=== PATIENT | female | born 1945 | race Caucasian/White ===

== ENCOUNTER 2019-09-25 14:06 | Outpatient (CLI) | payer MEDICARE, OTHER, SELFPAY ==
[2019-09-25 14:40] LABS: Basophils % 0.4 %; Eosinophils # 0.4 10^3/uL (0.0-0.8); Hematocrit 31.4 % (37.0-47.0); Hemoglobin 9.5 g/dL (11.5-15.3); Lymphocytes # 1.4 10^3/uL (0.8-4.8); Lymphocytes % 20.2 %; Mean Corpuscular HGB Conc 30.3 g/dL (30.0-36.0); Mean Corpuscular Hemoglobin 28.8 pg (28.0-34.0); Mean Corpuscular Volume 95.2 fL (81-99); Mean Platelet Volume 11.6 fL (7.4-10.4); Monocytes # 0.6 10^3/uL (0.2-0.9); Monocytes % 8.8 %; Neutrophils # 4.3 10^3/uL (1.8-7.7); Neutrophils % 64.3 %; Nucleated Red Blood Cells % 0 %; Platelet Count 328 10^3/cmm (130-400); Red Cell Distribution Width 14.8 % (12.1-15.1); White Blood Count 6.7 10^3/uL (4.0-10.0)
[2019-09-25 14:57] LABS: Alanine Aminotransferase 17 U/L (0-33); Albumin Level 3.4 g/dL (3.5-5.2); Alkaline Phosphatase 81 IU/L (35-105); Anion Gap 19.9 (5-19); Aspartate Amino Transferase 17 U/L (0-32); Blood Urea Nitrogen 32 mg/dL (8-23); Carbon Dioxide 22 mmol/L (22-29); Chloride 102 mmol/L (98-107); Ferritin 218 ng/mL (15-150); Globulin 3.5 g/dL (1.3-4.6); Glucose 215 mg/dL (65-115); Iron 30 ug/dL (37-145); Lactate Dehydrogenase 178 U/L (135-214); Percent Saturation 13.5 % (20-50); Potassium 4.9 mmol/L (3.5-5.1); Sodium 139 mmol/L (136-145); Total Bilirubin 0.2 mg/dL (0.15-1.2); Total Iron Binding Capacity 222 mcg/dl; Total Protein 6.9 g/dL (6.6-8.7); Unsaturated Iron Binding 192 ug/dL (112-347)
[2019-09-25 15:14] LABS: Estmated Average Glucose 194; Hemoglobin A1C 8.4 % (4.0-6.0)
== END 2019-09-25 14:07 | disposition home or self-care (01) ==
LOC: ONCMED 14:11
PROVIDERS: Family Provider Internal Medicine; PCP Internal Medicine; Visit Provider Internal Medicine Medical Oncology
DX: C64.1 Malignant neoplasm of right kidney, except renal pelvis (principal); D64.9 Anemia, unspecified; E11.9 Type 2 diabetes mellitus without complications
CPT/HCPCS: 80053; 82728; 83036; 83540; 83550; 83615; 85025

== ENCOUNTER 2019-09-26 13:53 | Outpatient (CLI) | payer MEDICARE, OTHER, SELFPAY ==
--- NOTE | 2019-09-27 07:37 | ONC FU_ITS ---
Dr. Ruiz Patient Follow-Up Note Patient: Angelika Sanchez Unit #: [id number]: 1945 Dicatated By: Diogenes Ruiz M.D.Date of Visit:Sep 26, 2019 Onc Med Follow-up/Prog Note Chief Complaint: Anemia/renal cell cancer. History of Present Illness: This is a 74 year-old woman wtih metastatic renal cell cancer. She also has mild to moderately severe anemia. I had initially seen in November 2012 with persistent anemia following an episode of tularemia the preceding fall. She had been in good health until March of 2012 when she came down with a high fever. She said she had never been so sick in her life. The illness was associated with a sore in the area of the left axilla. She ultimately was determined to have and was treated for tularemia. She did show some gradual improvement with treatment, but she never actually got better, and her laboratory studies showed persistent anemia and elevated sed rate. She failed to improve with parenteral iron replacement and with retreatment of the tularemia. Abdominal CT scan in May showed a large right renal mass consistent with renal cell carcinoma. There was suspected invasion of the right renal vein. A small right upper lobe pulmonary nodule was indeterminate. She also was noted to have a 2.3 x 1.6 cm nodule in the left lobe of the thyroid. There was no other obvious metastatic disease. She underwent right nephrectomy on 06/27/13. Pathology showed grade 4 clear cell carcinoma. The tumor measured 12.7 x 11.0 x 9.5 cm. There was gross extension into the renal vein, and the renal vein margin was noted to be positive. All other surgical margins were negative. One hilar lymph node was negative. Pathologic staging was pT3a, pN0. She indicates that prior to the nephrectomy, she did see an lawnmower mechanic, and biopsy of the thyroid nodule reportedly was benign. She did develop a wound infection, but that subsequently resolved. Her postoperative course was unremarkable. A followup CT scan in August 2013 showed no significant change in the right upper lobe pulmonary nodule. A right middle lobe nodule also was reported on that study. It measured only 2 to 3 mm, and it was noted to be unchanged. However, repeat CT scans in November 2013 did show a significant increase in the right upper lobe nodule. The small right middle lobe nodule and another small nodule in the right lower lobe appeared stable or perhaps slightly increased. At that point she was referred to Dr. Coates. On 01/14/2014 she underwent right thoracotomy with wedge resection of all 3 pulmonary nodules. Pathology on the right upper lobe nodule showed a high-grade metastatic renal cell carcinoma measuring 1.4 x 1.3 cm. The right middle lobe nodule was a well differentiated neuroendocrine tumor (carcinoid tumor) measuring 4 x 3 mm. The right lower lobe nodule was a more well differentiated metastatic renal cell carcinoma. During recovery she had some issues with blood pressure control and with lower extremity edema, but she otherwise recovered uneventfully. On a scheduled surveillance CT scan in February 2015, she was found to have a new 7.4 mm irregular nodule at the apex of the left lung. It was felt to be suspicious for a primary tumor or metastatic disease. There were no other suspicious findings at that time. Further evaluation with PET/CT showed low-grade FDG uptake in the nodule with SUV 1.5. It was felt to be consistent with metastatic disease. There were no other areas of abnormal uptake on that study. As the findings were felt to be consistent with a single site of additional metastatic involvement, she was referred to Dr. Osman for SBRT. She completed treatment on 03/31/2015 to a total dose of 4800 cGy, delivered in 4 fractions of 1200 cGy. Follow-up PET/CT on 06/28/2015 showed a residual FDG negative nodule measuring 3 mm consistent with positive response to therapy. There was no evidence of any new metastatic disease on that study. Surveillance chest CT on 12/30/2016 showed postsurgical changes in the right thorax with no evidence of recurrence on the right. There was a new 5 mm nodule noted in the lingula, indeterminate for an early metastatic site. Her follow-up CT scans of the chest, abdomen, and pelvis on 04/12/2017 showed increase in the size of the nodule in the lingula to 6.8 mm compared to 4.4 mm in December. There was stable scarring in the left upper lobe. There were no new pulmonary parenchymal nodules. A 2 cm left thyroid lobe nodule appeared stable. There was no evidence of recurrence or metastatic involvement in the abdomen/pelvis. She was referred to Dr. Osman, and she underwent SBRT to the lesion in the lingula, completed on 05/06/2017 to a total dose of 4800 cGy. She tolerated it well. Her repeat chest CT on 06/30/2017 showed stable 7 mm nodule in the lingula. There was biapical fibrosis, worse the left upper lobe. Restaging CT scans of the chest, abdomen, and pelvis on 11/29/2017 showed further increase in the size of the lingular opacity, measuring 12 mm. The findings were felt to be consistent with metastatic lesion versus postradiation changes. There was stable scar at the left lung apex. There was evidence of hepatic steatosis. There was no evidence of any new metastatic disease. Chest CT on 03/01/2018 showed left apical focal parenchymal nodule measuring 9.1 x 16 mm, felt to be most likely due to scarring and similar to the previous study. Right upper lobe parenchymal scarring also appeared unchanged. There was interval decreased density of the lingula focal opacities, felt to probably represent resolving infectious or inflammatory process. She continued observation/expectant management. Her other medical illnesses include hypertension, GERD, and chronic anxiety/depression. She also has developed stage III chronic kidney disease and type 2 diabetes. INTERIM HISTORY: Restaging CT scans of the chest, abdomen, and pelvis on 09/11/2018 showed subtle overall increase in size and density of the apical posterior segment left upper lobe density. This was felt to be suspicious for recurrence/progression. Other findings were stable. A restaging PET/CT on 12/23/2018 showed a 1.2 x 1.7 cm left upper lobe nodule without significant FDG activity. The appearance was consistent with scarring. Right upper lobe scarring was also FDG negative. There were no areas of abnormal uptake on that study. At that point she had become mildly anemic again. Her B12 level was normal. Her serum iron studies from 03/21/2019 showed low transferrin saturation at 18.3%, suggesting possible iron deficiency. Her repeat chest CT on 06/18/2019 showed stable appearance of the irregular nodular focus in the left upper lobe, measuring 10 x 24 mm. Postoperative changes in the right upper and middle lobes appeared stable, as did the appearance of the lingular subsegmental atelectasis or scarring. A 2.2 cm left thyroid lobe nodule also appeared stable. Overall, there was no evidence of disease progression. As of 06/28/2019 there was further decrease in the hemoglobin to 10.9 g with the transferrin saturation further decreased to 15%. At that point she did start an oral iron supplement. She continued on observation/expectant management for the renal cell cancer. She is seen for a follow-up visit. She continues to complain that she is very tired. She has not had much activity. She has had added anxiety/stress, as her has had ongoing health issues and he required group home placement, at least temporarily. Her ECOG score is 2. She does not have good appetite, but she says she is eating. Her weight is down about 5 pounds. She does not have fever or night sweats. She has shortness of breath with activity, and she also has had some cough. She thinks she may have a cold coming on. She does not complain of chest pain. She has no GI complaints. She has some urgency with urination and bladder incontinence at night. She says her knees are getting bad again. She is due for follow-up with Dr. Anthony in 3 weeks. She has ongoing problems with her balance, and she has numbness/tingling in her feet and lower legs. Medications: AmLODIPine Besylate 1 (5 mg) Tablet Oral daily, Hydrocodone-Acetaminophen 1 Tablet (of 5-325 mg) Oral four times a day, Losartan Potassium 1 Tablet (of 100 mg) Oral daily, RaNITidine HCl 1 (150 mg) Tablet Oral b.i.d., rOPINIRole HCl 1 Tablet (of 0.25 mg) Oral daily PRN, TraZODone HCl 1 (50 mg) Tablet Oral at bedtime PRN, Venlafaxine HCl 1 Tablet (of 150 mg) Oral daily Allergies: Gentamicin Review of Systems: Constitutional - Her energy is low. She is not doing much activity at home. Her appetite is not good. Her weight is down about 5 pounds since her last visit. No fever, chills, hot flashes, or night sweats. ECOG score is 2, ENMT - No sinus congestion/drainage. No mouth sores. No sore throat or difficulty swallowing, Hematologic/Lymphatic - No abnormal bruising or bleeding, Respiratory - Her breathing is shallow most of the time, and she has shortness of breath with activity. She has a cough. No pleuritic pain or hemoptysis, Cardiovascular - No angina pain. No palpitations, Gastrointestinal - No nausea or vomiting. No heartburn or acid reflux. No diarrhea or constipation. No blood in the stool or black stools, Genitourinary (F) - No dysuria or hematuria. No urinary frequency. She has urgency and bladder incontinence at night, Musculoskeletal - The pain in her knees is getting worse again. She is due to go see Dr. Anthony for another injection in 3 weeks. She also has pain in her back, Integumentary - No skin complications, Neurologic - No headache or dizziness. She has trouble with her balance. She has numbness and tingling in her feet. It sometimes gets up around her shins, Psychiatric - Her nerves are not good. She is worried about her . She is not sleeping very well at night. Vital Signs: Performed on Sep 26, 2019 15:35 Height - 62.00 in Temperature - 98.3 F (LOW) Pulse - 65 /min Respiration - 18 /min BP - 169/73 mm(hg) (HIGH) O2 Sat - 95 % (LOW) Pain - 0 Fatigue - 0 Performed on Sep 26, 2019 14:11 Height - 62.00 in Weight - 227.4 lbs (LOW) BSA - 2.02 sq.m BMI - 41.59 (HIGH) Temperature - 97.8 F (LOW) Pulse - 75 /min Respiration - 17 /min BP - 151/76 mm(hg) (HIGH) O2 Sat - 94 % (LOW) Pain - 5 Physical Examination: Constitutional - She appears somewhat weak generally, but not acutely ill, Eyes - Sclerae nonicteric. Conjunctivae clear, ENMT - There are no other lesions noted in the oral cavity, Hematologic/Lymphatic - No cervical, clavicular, or axillary adenopathy, Respiratory - Lungs sound clear with diminished air movement bilaterally, Cardiovascular - Heart rhythm is regular. There is a II/ systolic murmur. There is no gallop or rub noted, Abdomen - Moderately distended. Liver and spleen are not enlarged. There is no abdominal mass or ascites noted and there is no inguinal adenopathy, Extremities - Mild lower extremity edema, Neurologic - She has poor mobility. There are no focal neurologic deficits noted. Lab/Imaging: Test performed on Sep 25, 2019 14:17 Ferritin 218 ng/mL Iron 30 ug/dL LDH (Total) 178 U/L Sodium 139 mmol/L Potassium 4.9 mmol/L Chloride 102 mmol/L CO2 22 mmol/L UIBC 192 ug/dL Anion Gap 19.9 BUN 32 mg/dL Creatinine 2.0 mg/dL Cr Clearance (Est) 41.8700 mL/min Glucose 215 mg/dL Calcium 9.0 mg/dL Protein, Total 6.9 g/dL Albumin 3.4 g/dL Globulin 3.5 g/dL Bilirubin, Total 0.2 mg/dL ALT (SGPT) 17 U/L AST (SGOT) 17 U/L Alkaline Phosphatase 81 IU/L Hemoglobin A1C % 8.4 % WBC 6.7 10 3/uL RBC 3.30 10 6/uL HGB 9.5 g/dL HCT 31.4 % MCV 95.2 fL MCH 28.8 pg MCHC 30.3 g/dL RDW 14.8 % Platelet Count 328 10 3/cmm MPV 11.6 fL Neutrophils 4.3 10 3/uL Lymphocytes 1.4 10 3/uL Monocytes 0.6 10 3/uL Eosinophils 0.4 10 3/uL Basophils 0.0 10 3/uL Neutrophil % 64.3 % Lymphocyte % 20.2 % Monocyte % 8.8 % Eosinophil % 6.0 % Basophils % 0.4 % Impression: 1. Patient with stage IV renal cell cancer. Her disease appeared locally advanced at initial diagnosis. She underwent right open nephrectomy with renal vein thrombectomy on 06/27/2013. Pathology showed grade 4 clear cell carcinoma. The primary tumor measured 12.7 x 11.0 x 9.5 cm. 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 The renal vein margin was reported to be positive. Dr. Sheppard had indicated in his followup note that he felt it was highly unlikely that she had residual gross tumor, though pathology did report a positive renal vein margin. Disease at that point appeared to be stage III (T3a, N0, M0). 2. In January 2014 she underwent wedge resection of 3 pulmonary nodules. Two of these were metastatic renal cell cancer, one high-grade and one well differentiated. The other was a very small carcinoid tumor. Based on that, she had pathologically confirmed stage IV disease. She was without evidence of disease following the surgery. 3. In February a surveillance CT scan showed a new pulmonary nodule near the left apex, consistent with metastasis. PET/CT showed low-grade FDG avidity in the nodule, but no other areas of abnormal uptake, consistent with a single site of metastatic involvement. She was then treated with SBRT which she completed in March 2015 to a total dose of 4800 cGy. There was evidence of positive treatment response on follow-up PET/CT in June 2015. 4. Her surveillance CT scans in March 2017 showed an enlarging pulmonary nodule in the lingula, suspicious for metastasis. She was referred to Dr. Osman. She underwent SBRT to the lingula lesion, completed on 05/06/2017 to a total dose of 4800 cGy. 5. She also is known to have multi nodular goiter. This includes two dominant nodules on the left side, the largest in the left inferior lobe measuring 2.[address] and 2.5 cm by ultrasound. It has appeared stable on the most recent studies, and a previous FNA done prior to the nephrectomy was benign. Her other medical illnesses include: 6. Hypertension. 7. Type II diabetes. 8. Chronic kidney disease. 9. GERD. 10. Anxiety/depression. She has remained on observation/expectant management following completion of the SBRT in April 2017. Her most recent CT scans, from 09/11/2018, showed findings which were felt to be suspicious for recurrence at the site of the tumor nodule in the left lung apex. Those changes, though, were rather subtle, and there was no other evidence of disease progression. On further evaluation with restaging PET/CT in December 2018, the density at the left apex was FDG negative and most likely scarring. There were no areas of abnormal uptake on that study. Overall, during her follow-up she has continued to have somewhat marginal performance status. Within the past year she had become mildly anemic again. Her serum iron studies were consistent with iron deficiency, but her anemia has continued to worsen despite oral iron supplementation. Thus far there has been no evidence of further recurrence/progression of the renal cell cancer. Plan: She remains on observation/expectant management for the renal cell cancer. As her anemia has continued to worsen despite oral iron supplementation, she will be given parenteral iron replacement with a single infusion of Injectafer. She will have repeat laboratory studies in 1 month. If she is not showing any response to the iron replacement, she will need additional evaluation for the anemia. In that regard, it should be noted that anemia was the presenting symptom which led to the discovery of her renal cell cancer. Signed By: Diogenes Ruiz M.D. <<Signature on File>>
== END 2019-09-26 13:54 | disposition home or self-care (01) ==
LOC: ONCMED 13:54
PROVIDERS: Family Provider Internal Medicine; PCP Internal Medicine; Visit Provider Internal Medicine Medical Oncology
DX: D50.9 Iron deficiency anemia, unspecified (principal); Z85.528 Personal history of other malignant neoplasm of kidney; E04.2 Nontoxic multinodular goiter; E11.22 Type 2 diabetes mellitus with diabetic chronic kidney disease; I12.9 Hypertensive chronic kidney disease with stage 1 through stage 4 chronic kidney disease, or unspecified chronic kidney disease; N18.9 Chronic kidney disease, unspecified; K21.9 Gastro-esophageal reflux disease without esophagitis; F41.8 Other specified anxiety disorders; Z90.5 Acquired absence of kidney; Z90.2 Acquired absence of lung [part of]; Z92.3 Personal history of irradiation
CPT/HCPCS: 96365; 99214; J1439

== ENCOUNTER 2019-10-24 14:35 | Outpatient (CLI) | payer MEDICARE, OTHER, SELFPAY ==
[2019-10-24 17:04] LABS: Basophils # 0.1 10^3/uL (0.0-0.1); Basophils % 0.6 %; Eosinophils # 0.4 10^3/uL (0.0-0.8); Eosinophils % 4.9 %; Hematocrit 34.2 % (37.0-47.0); Hemoglobin 10.3 g/dL (11.5-15.3); Lymphocytes # 1.2 10^3/uL (0.8-4.8); Lymphocytes % 13.6 %; Mean Corpuscular HGB Conc 30.1 g/dL (30.0-36.0); Mean Corpuscular Hemoglobin 27.9 pg (28.0-34.0); Mean Corpuscular Volume 92.7 fL (81-99); Mean Platelet Volume 11.9 fL (7.4-10.4); Monocytes # 0.6 10^3/uL (0.2-0.9); Monocytes % 7.2 %; Neutrophils # 6.4 10^3/uL (1.8-7.7); Neutrophils % 73.2 %; Nucleated Red Blood Cells % 0 %; Platelet Count 337 10^3/cmm (130-400); Red Blood Count 3.69 10^6/uL (4.1-5.3); Red Cell Distribution Width 15.5 % (12.1-15.1); White Blood Count 8.7 10^3/uL (4.0-10.0)
[2019-10-24 17:13] LABS: Alanine Aminotransferase 16 U/L (0-33); Albumin Level 3.5 g/dL (3.5-5.2); Alkaline Phosphatase 94 IU/L (35-105); Anion Gap 17.9 (5-19); Aspartate Amino Transferase 16 U/L (0-32); Blood Urea Nitrogen 28 mg/dL (8-23); Calcium 9.6 mg/dL (8.5-10.5); Carbon Dioxide 26 mmol/L (22-29); Chloride 98 mmol/L (98-107); Globulin 3.7 g/dL (1.3-4.6); Glucose 122 mg/dL (65-115); Iron 40 ug/dL (37-145); Lactate Dehydrogenase 186 U/L (135-214); Osmolality Calculated 282 mOsm/kg (285-295); Percent Saturation 18.4 % (20-50); Potassium 4.9 mmol/L (3.5-5.1); Sodium 137 mmol/L (136-145); Total Bilirubin 0.2 mg/dL (0.15-1.2); Total Iron Binding Capacity 217 mcg/dl; Total Protein 7.2 g/dL (6.6-8.7); Unsaturated Iron Binding 177 ug/dL (112-347)
[2019-10-24 18:08] LABS: Erythrocyte Sedimentation Rate 60 mm/hr (0-15)
[2019-10-26 13:12] LABS: Erythropoietin 20.9 mIU/mL (2.6-18.5)
== END 2019-10-24 14:36 | disposition home or self-care (01) ==
LOC: ONCMED 17:12
PROVIDERS: Family Provider Internal Medicine; PCP Internal Medicine; Visit Provider Internal Medicine Medical Oncology
DX: C64.9 Malignant neoplasm of unspecified kidney, except renal pelvis (principal); D64.9 Anemia, unspecified
CPT/HCPCS: 80053; 82668; 83540; 83550; 83615; 85025; 85651

== ENCOUNTER 2019-11-13 09:59 | Outpatient (CLI) | payer MEDICARE, OTHER, SELFPAY ==
[2019-11-13] MEDS: sodium chloride 0.9% 100 ML 75 ML (10:15)
== END 2019-11-13 10:00 | disposition home or self-care (01) ==
LOC: ONCMED 09:59
PROVIDERS: Family Provider Internal Medicine; PCP Internal Medicine; Visit Provider Internal Medicine Medical Oncology
DX: D50.9 Iron deficiency anemia, unspecified (principal); C64.9 Malignant neoplasm of unspecified kidney, except renal pelvis
CPT/HCPCS: 96365; J1439

== ENCOUNTER 2019-12-18 07:30 | Outpatient (CLI) | payer MEDICARE, OTHER, SELFPAY ==
[2019-12-18 15:03] LABS: Basophils # 0.1 10^3/uL (0.0-0.1); Basophils % 0.7 %; Eosinophils # 0.7 10^3/uL (0.0-0.8); Hematocrit 35.6 % (37.0-47.0); Hemoglobin 10.7 g/dL (11.5-15.3); Lymphocytes # 1.4 10^3/uL (0.8-4.8); Lymphocytes % 13.8 %; Mean Corpuscular HGB Conc 30.1 g/dL (30.0-36.0); Mean Corpuscular Hemoglobin 29.2 pg (28.0-34.0); Mean Platelet Volume 11.5 fL (7.4-10.4); Monocytes # 1.1 10^3/uL (0.2-0.9); Neutrophils # 6.5 10^3/uL (1.8-7.7); Neutrophils % 66.9 %; Nucleated Red Blood Cells % 0 %; Platelet Count 385 10^3/cmm (130-400); Red Blood Count 3.67 10^6/uL (4.1-5.3); Red Cell Distribution Width 15.8 % (12.1-15.1); White Blood Count 9.8 10^3/uL (4.0-10.0)
[2019-12-18 15:35] LABS: Erythrocyte Sedimentation Rate 68 mm/hr (0-15)
[2019-12-18 15:55] LABS: Alanine Aminotransferase 15 U/L (0-33); Alkaline Phosphatase 81 IU/L (35-105); Anion Gap 19.2 (5-19); Aspartate Amino Transferase 15 U/L (0-32); Blood Urea Nitrogen 26 mg/dL (8-23); Calcium 9.5 mg/dL (8.5-10.5); Carbon Dioxide 22 mmol/L (22-29); Chloride 101 mmol/L (98-107); Globulin 3.2 g/dL (1.3-4.6); Glucose 168 mg/dL (65-115); Iron 50 ug/dL (37-145); Osmolality Calculated 285 mOsm/kg (285-295); Percent Saturation 22.4 % (20-50); Potassium 5.2 mmol/L (3.5-5.1); Sodium 137 mmol/L (136-145); Total Bilirubin 0.2 mg/dL (0.15-1.2); Total Iron Binding Capacity 223 mcg/dl; Total Protein 7.2 g/dL (6.6-8.7); Unsaturated Iron Binding 173 ug/dL (112-347)
== END 2019-12-18 07:31 | disposition home or self-care (01) ==
LOC: ONCMED 16:30
PROVIDERS: Family Provider Internal Medicine; PCP Internal Medicine; Visit Provider Internal Medicine Medical Oncology
DX: C64.1 Malignant neoplasm of right kidney, except renal pelvis (principal); C78.01 Secondary malignant neoplasm of right lung; C78.02 Secondary malignant neoplasm of left lung; N18.3 Chronic kidney disease, stage 3 (moderate); D64.9 Anemia, unspecified
CPT/HCPCS: 80053; 83540; 83550; 85025; 85651

== ENCOUNTER 2019-12-19 13:25 | Outpatient (CLI) | payer MEDICARE, OTHER, SELFPAY ==
[2019-12-19 15:40] LABS: Estmated Average Glucose 180; Hemoglobin A1C 7.9 % (4.0-6.0)
--- NOTE | 2019-12-22 15:01 | ONC FU_ITS ---
Dr. Ruiz Patient Follow-Up Note Patient: Angelika Sanchez Unit #: [id number]: 1945 Dicatated By: Diogenes Ruiz M.D.Date of Visit:December 19, 2019 Onc Med Follow-up/Prog Note Chief Complaint: Anemia/renal cell cancer. History of Present Illness: This is a 74 year-old woman wtih metastatic renal cell cancer. She also has mild to moderately severe anemia. I had initially seen in November 2012 with persistent anemia following an episode of tularemia the preceding fall. She had been in good health until March of 2012 when she came down with a high fever. She said she had never been so sick in her life. The illness was associated with a sore in the area of the left axilla. She ultimately was determined to have and was treated for tularemia. She did show some gradual improvement with treatment, but she never actually got better, and her laboratory studies showed persistent anemia and elevated sed rate. She failed to improve with parenteral iron replacement and with retreatment of the tularemia. Abdominal CT scan in May showed a large right renal mass consistent with renal cell carcinoma. There was suspected invasion of the right renal vein. A small right upper lobe pulmonary nodule was indeterminate. She also was noted to have a 2.3 x 1.6 cm nodule in the left lobe of the thyroid. There was no other obvious metastatic disease. She underwent right nephrectomy on 06/27/13. Pathology showed grade 4 clear cell carcinoma. The tumor measured 12.7 x 11.0 x 9.5 cm. There was gross extension into the renal vein, and the renal vein margin was noted to be positive. All other surgical margins were negative. One hilar lymph node was negative. Pathologic staging was pT3a, pN0. She indicates that prior to the nephrectomy, she did see an wharf tender, and biopsy of the thyroid nodule reportedly was benign. She did develop a wound infection, but that subsequently resolved. Her postoperative course was unremarkable. A followup CT scan in August 2013 showed no significant change in the right upper lobe pulmonary nodule. A right middle lobe nodule also was reported on that study. It measured only 2 to 3 mm, and it was noted to be unchanged. However, repeat CT scans in November 2013 did show a significant increase in the right upper lobe nodule. The small right middle lobe nodule and another small nodule in the right lower lobe appeared stable or perhaps slightly increased. At that point she was referred to Dr. Coates. On 01/14/2014 she underwent right thoracotomy with wedge resection of all 3 pulmonary nodules. Pathology on the right upper lobe nodule showed a high-grade metastatic renal cell carcinoma measuring 1.4 x 1.3 cm. The right middle lobe nodule was a well differentiated neuroendocrine tumor (carcinoid tumor) measuring 4 x 3 mm. The right lower lobe nodule was a more well differentiated metastatic renal cell carcinoma. During recovery she had some issues with blood pressure control and with lower extremity edema, but she otherwise recovered uneventfully. On a scheduled surveillance CT scan in February 2015, she was found to have a new 7.4 mm irregular nodule at the apex of the left lung. It was felt to be suspicious for a primary tumor or metastatic disease. There were no other suspicious findings at that time. Further evaluation with PET/CT showed low-grade FDG uptake in the nodule with SUV 1.5. It was felt to be consistent with metastatic disease. There were no other areas of abnormal uptake on that study. As the findings were felt to be consistent with a single site of additional metastatic involvement, she was referred to Dr. Osman for SBRT. She completed treatment on 03/31/2015 to a total dose of 4800 cGy, delivered in 4 fractions of 1200 cGy. Follow-up PET/CT on 06/28/2015 showed a residual FDG negative nodule measuring 3 mm consistent with positive response to therapy. There was no evidence of any new metastatic disease on that study. Surveillance chest CT on 12/30/2016 showed postsurgical changes in the right thorax with no evidence of recurrence on the right. There was a new 5 mm nodule noted in the lingula, indeterminate for an early metastatic site. Her follow-up CT scans of the chest, abdomen, and pelvis on 04/12/2017 showed increase in the size of the nodule in the lingula to 6.8 mm compared to 4.4 mm in December. There was stable scarring in the left upper lobe. There were no new pulmonary parenchymal nodules. A 2 cm left thyroid lobe nodule appeared stable. There was no evidence of recurrence or metastatic involvement in the abdomen/pelvis. She was referred to Dr. Osman, and she underwent SBRT to the lesion in the lingula, completed on 05/06/2017 to a total dose of 4800 cGy. She tolerated it well. Her repeat chest CT on 06/30/2017 showed stable 7 mm nodule in the lingula. There was biapical fibrosis, worse the left upper lobe. Restaging CT scans of the chest, abdomen, and pelvis on 11/29/2017 showed further increase in the size of the lingular opacity, measuring 12 mm. The findings were felt to be consistent with metastatic lesion versus postradiation changes. There was stable scar at the left lung apex. There was evidence of hepatic steatosis. There was no evidence of any new metastatic disease. Chest CT on 03/01/2018 showed left apical focal parenchymal nodule measuring 9.1 x 16 mm, felt to be most likely due to scarring and similar to the previous study. Right upper lobe parenchymal scarring also appeared unchanged. There was interval decreased density of the lingula focal opacities, felt to probably represent resolving infectious or inflammatory process. She continued observation/expectant management. Her other medical illnesses include hypertension, GERD, and chronic anxiety/depression. She also has developed stage III chronic kidney disease and type 2 diabetes. INTERIM HISTORY: Restaging CT scans of the chest, abdomen, and pelvis on 09/11/2018 showed subtle overall increase in size and density of the apical posterior segment left upper lobe density. This was felt to be suspicious for recurrence/progression. Other findings were stable. A restaging PET/CT on 12/23/2018 showed a 1.2 x 1.7 cm left upper lobe nodule without significant FDG activity. The appearance was consistent with scarring. Right upper lobe scarring was also FDG negative. There were no areas of abnormal uptake on that study. At that point she had become mildly anemic again. Her B12 level was normal. Her serum iron studies from 03/21/2019 showed low transferrin saturation at 18.3%, suggesting possible iron deficiency. Her repeat chest CT on 06/18/2019 showed stable appearance of the irregular nodular focus in the left upper lobe, measuring 10 x 24 mm. Postoperative changes in the right upper and middle lobes appeared stable, as did the appearance of the lingular subsegmental atelectasis or scarring. A 2.2 cm left thyroid lobe nodule also appeared stable. Overall, there was no evidence of disease progression. As of 06/28/2019 there was further decrease in the hemoglobin to 10.9 g with the transferrin saturation further decreased to 15%. At that point she did start an oral iron supplement. She continued on observation/expectant management for the renal cell cancer. As of September 2019 there was further decrease in the hemoglobin to 9.5 g, and at that point she was given parenteral iron replacement with a single infusion of Injectafer. She received a second infusion on 11/13/2019. She is seen for a follow-up visit. She continues to complain that she feels tired. She has limited activity. ECOG score is 2. Her appetite is been okay. She has not had fever or night sweats. She does complain that she gets hot after she eats. She was sick with a persistent cough in August and September, but that has improved. She now has just occasional cough. She does not complain of shortness of breath or chest pain. She has been having heartburn at night. She has mild constipation. She has ongoing complaints with urinary frequency and urgency. She has pain in her ankles, in her right knee, and in her thumbs. She also has lower back pain. She is off balance when she first gets up and walks. She also has been having some positional vertigo. She has numbness/tingling in her feet. Medications: AmLODIPine Besylate 1 (5 mg) Tablet Oral daily, Hydrocodone-Acetaminophen 1 Tablet (of 5-325 mg) Oral four times a day, Losartan Potassium 1 Tablet (of 100 mg) Oral daily, RaNITidine HCl 1 (150 mg) Tablet Oral b.i.d., rOPINIRole HCl 1 Tablet (of 0.25 mg) Oral daily PRN, TraZODone HCl 1 (50 mg) Tablet Oral at bedtime PRN, Venlafaxine HCl 1 Tablet (of 150 mg) Oral daily Allergies: Gentamicin Review of Systems: Constitutional - She continues to feel tired. Her energy level is low. She is doing very little at home. Her appetite is good and weight is stable. No fever or chills. She has hot flashes. No night sweats. ECOG score is 2, ENMT - No sinus congestion/drainage. No mouth sores. No sore throat or difficulty swallowing, Hematologic/Lymphatic - No abnormal bruising or bleeding, Respiratory - No shortness of breath. She has an occasioanl cough. No pleuritic pain or hemoptysis, Cardiovascular - No angina pain. No palpitations, Gastrointestinal - No nausea or vomiting. She is taking Zantac daily. No diarrhea. She has mild constipation. No blood in the stool or black stools, Genitourinary (F) - No dysuria or hematuria. She has urinary frequency both day and night with urgency. No incontinence, Musculoskeletal - She has arthritis pain in her hands and knees, and she has low back pain, Integumentary - No skin complications, Neurologic - No headache. She has positional vertigo. She has neuropathy in her feet that occasional radiates up into legs, Psychiatric - She has anxiety. No insomnia. Vital Signs: Performed on December 19, 2019 13:33 Height - 62.00 in Weight - 227.8 lbs (HIGH) BSA - 2.02 sq.m BMI - 41.67 (HIGH) Temperature - 98.6 F Pulse - 68 /min Respiration - 24 /min BP - 144/70 mm(hg) (HIGH) O2 Sat - 99 % Pain - 0 Physical Examination: Constitutional - She appears somewhat weak generally, Eyes - Sclerae nonicteric. Conjunctivae clear, ENMT - No lesions noted in the oral cavity, Hematologic/Lymphatic - No cervical, clavicular, or axillary adenopathy, Respiratory - Lungs sound clear with diminished air movement bilaterally, Cardiovascular - Heart rhythm is regular. There is a II/ systolic murmur. There is no gallop or rub noted, Abdomen - Moderately distended. Liver and spleen are not enlarged. There is no abdominal mass or ascites noted and there is no inguinal adenopathy, Extremities - Mild lower extremity edema, worse on the left, Neurologic - She has limited mobility. There are no focal neurologic deficits noted. Lab/Imaging: Test performed on December 18, 2019 07:30 Iron 50 mcg/dL Sodium 137 mmol/L Iron Binding Capacity (TIBC) 223 mcg/dl Potassium 5.2 mmol/L % Iron Saturation 22.4 % Chloride 101 mmol/L CO2 22 mmol/L UIBC 173 mcg/dL Anion Gap 19.2 BUN 26 mg/dL Creatinine 1.9 mg/dL Cr Clearance (Est) 43.02 mL/min Glucose 168 mg/dL Calcium 9.5 mg/dL Protein, Total 7.2 g/dL Albumin 4.0 g/dL Globulin 3.2 g/dL Bilirubin, Total 0.2 mg/dL ALT (SGPT) 15 U/L AST (SGOT) 15 U/L Alkaline Phosphatase 81 IU/L ESR (Sed Rate) 68 mm/hr Hemoglobin A1C % 7.9 % WBC 9.8 10 3/uL RBC 3.67 10 6/uL HGB 10.7 g/dL HCT 35.6 % MCV 97.0 fL MCH 29.2 pg MCHC 30.1 g/dL RDW 15.8 % Platelet Count 385 10 3/cmm MPV 11.5 fL Neutrophils 6.5 10 3/uL Lymphocytes 1.4 10 3/uL Monocytes 1.1 10 3/uL Eosinophils 0.7 10 3/uL Basophils 0.1 10 3/uL Neutrophil % 66.9 % Lymphocyte % 13.8 % Monocyte % 11.0 % Eosinophil % 7.0 % Basophils % 0.7 % Impression: 1. Patient with stage IV renal cell cancer. Her disease appeared locally advanced at initial diagnosis. She underwent right open nephrectomy with renal vein thrombectomy on 06/27/2013. Pathology showed grade 4 clear cell carcinoma. The primary tumor measured 12.7 x 11.0 x 9.5 cm. 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 The renal vein margin was reported to be positive. Dr. Sheppard had indicated in his followup note that he felt it was highly unlikely that she had residual gross tumor, though pathology did report a positive renal vein margin. Disease at that point appeared to be stage III (T3a, N0, M0). 2. In January 2014 she underwent wedge resection of 3 pulmonary nodules. Two of these were metastatic renal cell cancer, one high-grade and one well differentiated. The other was a very small carcinoid tumor. Based on that, she had pathologically confirmed stage IV disease. She was without evidence of disease following the surgery. 3. In February a surveillance CT scan showed a new pulmonary nodule near the left apex, consistent with metastasis. PET/CT showed low-grade FDG avidity in the nodule, but no other areas of abnormal uptake, consistent with a single site of metastatic involvement. She was then treated with SBRT which she completed in March 2015 to a total dose of 4800 cGy. There was evidence of positive treatment response on follow-up PET/CT in June 2015. 4. Her surveillance CT scans in March 2017 showed an enlarging pulmonary nodule in the lingula, suspicious for metastasis. She was referred to Dr. Osman. She underwent SBRT to the lingula lesion, completed on 05/06/2017 to a total dose of 4800 cGy. 5. She also is known to have multi nodular goiter. This includes two dominant nodules on the left side, the largest in the left inferior lobe measuring 2.[address] and 2.5 cm by ultrasound. It has appeared stable on the most recent studies, and a previous FNA done prior to the nephrectomy was benign. Her other medical illnesses include: 6. Hypertension. 7. Type II diabetes. 8. Chronic kidney disease. 9. GERD. 10. Anxiety/depression. She has remained on observation/expectant management following completion of the SBRT in April 2017. Her most recent CT scans, from 09/11/2018, showed findings which were felt to be suspicious for recurrence at the site of the tumor nodule in the left lung apex. Those changes, though, were rather subtle, and there was no other evidence of disease progression. On further evaluation with restaging PET/CT in December 2018, the density at the left apex was FDG negative and most likely scarring. There were no areas of abnormal uptake on that study. Overall, during her follow-up she has continued to have somewhat marginal performance status. Within the past year she had become mildly anemic again. Her serum iron studies were consistent with iron deficiency, but her anemia continued to worsen despite oral iron supplementation. She was then given parenteral iron replacement with infusions of Injectafer in September and in October 2019. There has been some increase in her hemoglobin/hematocrit levels, but she remains mildly anemic. Overall, she continues to have fairly marginal performance status. Thus far there is been no evidence for further progression/recurrence of the renal cell cancer. Plan: She remains on observation/expectant management for the renal cell cancer. She will be scheduled for restaging PET/CT, as it has been 6 months since her last imaging. I will tentatively plan a follow-up visit in 3 months. Signed By: Diogenes Ruiz M.D. <<Signature on File>>
== END 2019-12-19 13:26 | disposition home or self-care (01) ==
LOC: ONCMED 13:25
PROVIDERS: Family Provider Internal Medicine; PCP Internal Medicine; Visit Provider Internal Medicine Medical Oncology
DX: C64.1 Malignant neoplasm of right kidney, except renal pelvis (principal); C7A.090 Malignant carcinoid tumor of the bronchus and lung; C78.02 Secondary malignant neoplasm of left lung; E11.22 Type 2 diabetes mellitus with diabetic chronic kidney disease; I12.9 Hypertensive chronic kidney disease with stage 1 through stage 4 chronic kidney disease, or unspecified chronic kidney disease; N18.3 Chronic kidney disease, stage 3 (moderate); K21.9 Gastro-esophageal reflux disease without esophagitis; F41.8 Other specified anxiety disorders; D50.9 Iron deficiency anemia, unspecified; Z85.528 Personal history of other malignant neoplasm of kidney; Z90.2 Acquired absence of lung [part of]; Z90.5 Acquired absence of kidney
CPT/HCPCS: 83036; 99214

== ENCOUNTER 2020-01-25 11:57 | Outpatient (CLI) | payer MEDICARE, OTHER, SELFPAY ==
--- NOTE | 2020-01-25 12:05 | CT_ITS ---
WS: [id number] CT CHEST, ABDOMEN, AND PELVIS TECHNIQUE: Noncontrast CT of the chest, abdomen, and pelvis with coronal and sagittal reformatted wendy ges. CLINICAL INFORMATION: ANEMIA, RENAL CELL CANCER COMPARISON: CT chest June 18, 2019 and PET/CT December 23, 2018. CT chest abdomen pelvis September 11. DLP: 2408.[address] scans at [facility] use at least one of these dose optimization techniques: automat ed exposure control; mA and/or kV adjustment per patient size (includes targeted exams where dose is matched to clinical indication); or iterative reconstruction. CT CHEST: Prior postoperative changes right upper and right middle lobe. Previously described left upper lobe p ulmonary opacity is unchanged measuring 1.9 x 1.0 CM. Stable subsegmental atelectasis and fibrosis in the right upper lobe along the fissure and right hilum. Stable postoperative changes right upper lob e and right middle lobe. No new pulmonary opacities. Stable fibrosis in the lingula. Noncalcified nod ule in the right lower lobe laterally measuring 6 mm is slightly more prominent today. Recommend 6 mo nth follow-up. This was present dating back to 2016. No mediastinal or hilar lymphadenopathy. Stable lower pole left thyroid nodule measuring 2.3 cm. No acute pulmonary infiltrates. Mild chronic emphysematous changes. Tiny noncalcified subpleural nodule in the left upper lobe measuring 3 mm. Thi s is unchanged. Subsegmental Atelectasis in the right lower lobe. CT ABDOMEN AND PELVIS: No evidence of progressive metastatic disease in the abdomen or pelvis. Diffus e fatty infiltration of the liver. Normal noncontrast gallbladder and spleen. Normal GE junction. Nor mal noncontrast pancreas. Adrenal glands are normal. Prior right nephrectomy. Stable postoperative ch anges right nephrectomy bed. No abdominal lymphadenopathy. Normal caliber abdominal aorta. Sigmoid diverticulosis. No evidence of small or large bowel obstruction. No adenopathy in the pelvis. No inguinal lymphadenopathy. Sigmoid diverticulosis. No evidence of acute diverticulitis. L5 spondylolysis with grade [address]/CT chest abd pel wo con IMPRESSION: 1. No evidence of progressed metastatic disease in the chest abdomen or pelvis . 2. Left upper lobe pulmonary opacity is unchanged. 3. Stable postoperative changes right upper lobe and right middle lobe. 4. Nodular opacity in the right lower lobe along the diaphragm measuring 6 mm slightly more prominent compared to the prior examinations. Recommend 6 month f ollow-up. 5. Stable parenchymal scarring in the lingula. 6. No adenopathy in the chest, abdomen or pelvis. 7. Prior postoperative changes right nephrectomy. 8. Diffuse fatty infiltration of the liver. 9. Diverticulosis. 10. Grade 2 anterolisthesis with chronic spondylolysis.
== END 2020-01-25 11:58 | disposition home or self-care (01) ==
LOC: RADWPI 12:01
PROVIDERS: Family Provider Internal Medicine; PCP Internal Medicine; Visit Provider Internal Medicine Medical Oncology
DX: D64.9 Anemia, unspecified (principal); C64.9 Malignant neoplasm of unspecified kidney, except renal pelvis; K76.0 Fatty (change of) liver, not elsewhere classified; K57.90 Diverticulosis of intestine, part unspecified, without perforation or abscess without bleeding; M47.819 Spondylosis without myelopathy or radiculopathy, site unspecified
CPT/HCPCS: 71250; 74176

== ENCOUNTER 2020-03-20 12:56 | Outpatient (CLI) | payer MEDICARE, OTHER, SELFPAY ==
[2020-03-20 13:40] LABS: Basophils # 0.1 10^3/uL (0.0-0.1); Basophils % 0.6 %; Eosinophils # 0.6 10^3/uL (0.0-0.8); Eosinophils % 5.9 %; Hematocrit 33.2 % (37.0-47.0); Hemoglobin 9.5 g/dL (11.5-15.3); Lymphocytes # 1.2 10^3/uL (0.8-4.8); Mean Corpuscular HGB Conc 28.6 g/dL (30.0-36.0); Mean Corpuscular Hemoglobin 28.1 pg (28.0-34.0); Mean Corpuscular Volume 98.2 fL (81-99); Mean Platelet Volume 11.7 fL (7.4-10.4); Monocytes # 0.7 10^3/uL (0.2-0.9); Monocytes % 6.6 %; Neutrophils # 7.51 10^3/uL (1.8-7.7); Neutrophils % 74.3 %; Nucleated Red Blood Cells % 0 %; Platelet Count 297 10^3/cmm (130-400); Red Blood Count 3.38 10^6/uL (4.1-5.3); Red Cell Distribution Width 14.1 % (12.1-15.1); White Blood Count 10.1 10^3/uL (4.0-10.0)
[2020-03-20 14:12] LABS: Slide Review Slide Review Perform
[2020-03-20 14:35] LABS: Alanine Aminotransferase 14 U/L (0-33); Albumin Level 3.9 g/dL (3.5-5.2); Alkaline Phosphatase 86 IU/L (35-105); Anion Gap 14.7 (5-19); Aspartate Amino Transferase 15 U/L (0-32); Blood Urea Nitrogen 26 mg/dL (8-23); Calcium 9.1 mg/dL (8.5-10.5); Carbon Dioxide 24 mmol/L (22-29); Chloride 100 mmol/L (98-107); Free T4 Free Thyroxine 0.99 ng/dL (0.82-1.77); Globulin 2.9 g/dL (1.3-4.6); Glucose 213 mg/dL (65-115); Lactate Dehydrogenase 154 U/L (135-214); Osmolality Calculated 281 mOsm/kg (285-295); Potassium 4.7 mmol/L (3.5-5.1); Sodium 134 mmol/L (136-145); Thyroid Stimulating Hormone 0.88 uIU/mL (0.27-4.20); Total Bilirubin 0.2 mg/dL (0.15-1.2); Total Protein 6.8 g/dL (6.6-8.7)
== END 2020-03-20 12:57 | disposition home or self-care (01) ==
LOC: ONCMED 12:59
PROVIDERS: PCP Internal Medicine; Visit Provider Internal Medicine Medical Oncology
DX: C64.1 Malignant neoplasm of right kidney, except renal pelvis (principal); C7A.090 Malignant carcinoid tumor of the bronchus and lung; C78.01 Secondary malignant neoplasm of right lung; C78.02 Secondary malignant neoplasm of left lung; N18.3 Chronic kidney disease, stage 3 (moderate); E03.9 Hypothyroidism, unspecified; D64.9 Anemia, unspecified; F41.9 Anxiety disorder, unspecified; F32.9 Major depressive disorder, single episode, unspecified; K21.9 Gastro-esophageal reflux disease without esophagitis; I10 Essential (primary) hypertension
CPT/HCPCS: 36415; 80053; 83615; 84439; 84443; 85025

== ENCOUNTER 2020-03-24 13:59 | Outpatient (CLI) | payer MEDICARE, OTHER, SELFPAY ==
--- NOTE | 2020-03-28 15:47 | ONC FU_ITS ---
Dr. Ruiz Patient Follow-Up Note Patient: Angelika Sanchez Unit #: [id number]: 1945 Dicatated By: Diogenes Ruiz M.D.Date of Visit:Mar 24, 2020 Onc Med Follow-up/Prog Note Chief Complaint: Anemia/renal cell cancer. History of Present Illness: This is a 75 year-old woman wtih metastatic renal cell cancer. She also has mild to moderately severe anemia. I had initially seen in November 2012 with persistent anemia following an episode of tularemia the preceding fall. She had been in good health until March of 2012 when she came down with a high fever. She said she had never been so sick in her life. The illness was associated with a sore in the area of the left axilla. She ultimately was determined to have and was treated for tularemia. She did show some gradual improvement with treatment, but she never actually got better, and her laboratory studies showed persistent anemia and elevated sed rate. She failed to improve with parenteral iron replacement and with retreatment of the tularemia. Abdominal CT scan in May 2013 showed a large right renal mass consistent with renal cell carcinoma. There was suspected invasion of the right renal vein. A small right upper lobe pulmonary nodule was indeterminate. She also was noted to have a 2.3 x 1.6 cm nodule in the left lobe of the thyroid. There was no other obvious metastatic disease. She underwent right nephrectomy on 06/27/13. Pathology showed grade 4 clear cell carcinoma. The tumor measured 12.7 x 11.0 x 9.5 cm. There was gross extension into the renal vein, and the renal vein margin was noted to be positive. All other surgical margins were negative. One hilar lymph node was negative. Pathologic staging was pT3a, pN0. She indicates that prior to the nephrectomy, she did see an loaf counter, and biopsy of the thyroid nodule reportedly was benign. She did develop a wound infection, but that subsequently resolved. Her postoperative course was unremarkable. A followup CT scan in August 2013 showed no significant change in the right upper lobe pulmonary nodule. A right middle lobe nodule also was reported on that study. It measured only 2 to 3 mm, and it was noted to be unchanged. However, repeat CT scans in November 2013 did show a significant increase in the right upper lobe nodule. The small right middle lobe nodule and another small nodule in the right lower lobe appeared stable or perhaps slightly increased. At that point she was referred to Dr. Coates. On 01/14/2014 she underwent right thoracotomy with wedge resection of all 3 pulmonary nodules. Pathology on the right upper lobe nodule showed a high-grade metastatic renal cell carcinoma measuring 1.4 x 1.3 cm. The right middle lobe nodule was a well differentiated neuroendocrine tumor (carcinoid tumor) measuring 4 x 3 mm. The right lower lobe nodule was a more well differentiated metastatic renal cell carcinoma. During recovery she had some issues with blood pressure control and with lower extremity edema, but she otherwise recovered uneventfully. On a scheduled surveillance CT scan in February 2015, she was found to have a new 7.4 mm irregular nodule at the apex of the left lung. It was felt to be suspicious for a primary tumor or metastatic disease. There were no other suspicious findings at that time. Further evaluation with PET/CT showed low-grade FDG uptake in the nodule with SUV 1.5. It was felt to be consistent with metastatic disease. There were no other areas of abnormal uptake on that study. As the findings were felt to be consistent with a single site of additional metastatic involvement, she was referred to Dr. Osman for SBRT. She completed treatment on 03/31/2015 to a total dose of 4800 cGy, delivered in 4 fractions of 1200 cGy. Follow-up PET/CT on 06/28/2015 showed a residual FDG negative nodule measuring 3 mm consistent with positive response to therapy. There was no evidence of any new metastatic disease on that study. Surveillance chest CT on 12/30/2016 showed postsurgical changes in the right thorax with no evidence of recurrence on the right. There was a new 5 mm nodule noted in the lingula, indeterminate for an early metastatic site. Her follow-up CT scans of the chest, abdomen, and pelvis on 04/12/2017 showed increase in the size of the nodule in the lingula to 6.8 mm compared to 4.4 mm in December. There was stable scarring in the left upper lobe. There were no new pulmonary parenchymal nodules. A 2 cm left thyroid lobe nodule appeared stable. There was no evidence of recurrence or metastatic involvement in the abdomen/pelvis. She was referred to Dr. Osman, and she underwent SBRT to the lesion in the lingula, completed on 05/06/2017 to a total dose of 4800 cGy. She tolerated it well. Her repeat chest CT on 06/30/2017 showed stable 7 mm nodule in the lingula. There was biapical fibrosis, worse the left upper lobe. Restaging CT scans of the chest, abdomen, and pelvis on 11/29/2017 showed further increase in the size of the lingular opacity, measuring 12 mm. The findings were felt to be consistent with metastatic lesion versus postradiation changes. There was stable scar at the left lung apex. There was evidence of hepatic steatosis. There was no evidence of any new metastatic disease. Chest CT on 03/01/2018 showed left apical focal parenchymal nodule measuring 9.1 x 16 mm, felt to be most likely due to scarring and similar to the previous study. Right upper lobe parenchymal scarring also appeared unchanged. There was interval decreased density of the lingula focal opacities, felt to probably represent resolving infectious or inflammatory process. She then continued on observation/expectant management for the renal cell cancer. As of August [address] scans had shown no evidence of disease progression. Her other medical illnesses include hypertension, stage III chronic kidney disease, type 2 diabetes, GERD, and chronic anxiety/depression. She has a history of smoking 2 packs of cigarettes daily for 29 years. She quit smoking in the early . INTERIM HISTORY: A restaging PET/CT on 12/23/2018 showed a 1.2 x 1.7 cm left upper lobe nodule without significant FDG activity. The appearance was consistent with scarring. Right upper lobe scarring was also FDG negative. There were no areas of abnormal uptake on that study. At that point she had become mildly anemic again. Her B12 level was normal. Her serum iron studies from 03/21/2019 showed low transferrin saturation at 18.3%, suggesting possible iron deficiency. Her repeat chest CT on 06/18/2019 showed stable appearance of the irregular nodular focus in the left upper lobe, measuring 10 x 24 mm. Postoperative changes in the right upper and middle lobes appeared stable, as did the appearance of the lingular subsegmental atelectasis or scarring. A 2.2 cm left thyroid lobe nodule also appeared stable. Overall, there was no evidence of disease progression. As of 06/28/2019 there was further decrease in the hemoglobin to 10.9 g with the transferrin saturation further decreased to 15%. At that point she did start an oral iron supplement. She continued on observation/expectant management for the renal cell cancer. As of September 2019 there was further decrease in the hemoglobin to 9.5 g, and at that point she was given parenteral iron replacement with a single infusion of Injectafer. She received a second infusion on 11/13/2019. She is seen for a follow-up visit. She complains that she has less energy. Her activity remains very limited. ECOG score is 2. Her appetite is been okay. Her weight is down 6 pounds. She does not have fever or night sweats. She is short of breath with any activity. She has been having more cough. She does not complain of chest pain. She has been having pain from the area just under her right breast down to her waist. She does not have associated nausea she is not having any obvious acid reflux symptoms. Her pain does seem to be better after eating. She does have some constipation, but with stool softeners her bowels move about every 2 to 3 days. She complains that her bladder is leaky. She has back pain, which tends to be associated with activity. She has pain in her right knee. Her sciatic pain has not been bothering her as much. She does not complain of headache. She tends to have dizziness 30 to 40 seconds after lying down. She has numbness from her knees down to the bottoms of her feet, but mainly when she is upright. Medications: AmLODIPine Besylate 1 (5 mg) Tablet Oral daily, Famotidine 1 Tablet (of 40 mg) Oral at bedtime, Hydrocodone-Acetaminophen 1 Tablet (of 5-325 mg) Oral four times a day, Losartan Potassium 1 Tablet (of 100 mg) Oral daily, rOPINIRole HCl 1 Tablet (of 0.25 mg) Oral daily PRN, TraZODone HCl 1 (100 mg) Tablet Oral at bedtime PRN, Venlafaxine HCl 1 Tablet (of 150 mg) Oral daily Allergies: Gentamicin Review of Systems: Constitutional - She says she has less energy. Activity is limited. Her appetite has been okay. Her weight is down 6 pounds. She does not have fever, night sweats, or hot flashes. ECOG score is 2, ENMT - No sinus congestion/drainage. No mouth sores. No sore throat or difficulty swallowing, Hematologic/Lymphatic - No abnormal bruising or bleeding, Respiratory - She has shortness of breath with activity. She has been coughing more. No pleuritic pain or hemoptysis, Cardiovascular - No angina pain. No palpitations, Gastrointestinal - No nausea or vomiting. No heartburn or acid reflux. She has been having pain on a daily basis from the area under her right breast down to her waist. Does tend to get better after she eats. She has constipation, but with a stool softener her bowels move every 2 to 3 days. No blood in the stool or black stools, Genitourinary (F) - No dysuria or hematuria. She has urinary frequency and some incontinence, Musculoskeletal - She has pain in her back which tends to be associated with activity. She has pain in her right knee. She has not been having as much pain in the sciatic area as she used to, Integumentary - No skin rash, Neurologic - No headache. She has dizziness which starts about 30 to 40 seconds after she lies down. She has numbness/tingling from her knees down to the bottoms of her feet, but mainly just when she is upright, Psychiatric - She has anxiety/depression. No insomnia. Vital Signs: Performed on Mar 24, 2020 14:20 Height - 62.00 in Weight - 221.8 lbs (LOW) BSA - 2.00 sq.m BMI - 40.57 (HIGH) Temperature - 97.6 F (LOW) Pulse - 66 /min Respiration - 24 /min BP - 187/65 mm(hg) (HIGH) O2 Sat - 97 % Pain - 3 Physical Examination: Constitutional - She appears somewhat weak generally, Eyes - Sclerae nonicteric. Conjunctivae clear, ENMT - No lesions noted in the oral cavity, Hematologic/Lymphatic - No cervical, clavicular, or axillary adenopathy, Respiratory - Lungs sound clear with diminished air movement bilaterally, Cardiovascular - Heart rhythm is regular. There is a II/ systolic murmur. There is no gallop or rub noted, Abdomen - Moderately distended. There is no abdominal tenderness noted. Liver and spleen are not enlarged. There is no abdominal mass or ascites noted and there is no inguinal adenopathy, Extremities - No edema. Pedal pulses are palpable bilaterally, Neurologic - She has limited mobility. There are no focal neurologic deficits noted. Lab/Imaging: Test performed on Mar 20, 2020 13:12 LDH (Total) 154 U/L Sodium 134 mmol/L T4, Free 0.99 ng/dL TSH 0.88 uIU/mL Potassium 4.7 mmol/L Chloride 100 mmol/L CO2 24 mmol/L Anion Gap 14.7 BUN 26 mg/dL Creatinine 2.2 mg/dL Cr Clearance (Est) 36.6000 mL/min Glucose 213 mg/dL Calcium 9.1 mg/dL Protein, Total 6.8 g/dL Albumin 3.9 g/dL Globulin 2.9 g/dL Bilirubin, Total 0.2 mg/dL ALT (SGPT) 14 U/L AST (SGOT) 15 U/L Alkaline Phosphatase 86 IU/L WBC 10.1 10 3/uL RBC 3.38 10 6/uL HGB 9.5 g/dL HCT 33.2 % MCV 98.2 fL MCH 28.1 pg MCHC 28.6 g/dL RDW 14.1 % Platelet Count 297 10 3/cmm MPV 11.7 fL Neutrophils 7.51 10 3/uL Lymphocytes 1.2 10 3/uL Monocytes 0.7 10 3/uL Eosinophils 0.6 10 3/uL Basophils 0.1 10 3/uL Neutrophil % 74.3 % Lymphocyte % 12.0 % Monocyte % 6.6 % Eosinophil % 5.9 % Basophils % 0.6 % NRBC % 0 % CBC Slide Review Slide Review Perform Impression: 1. Patient with stage IV renal cell cancer. Her disease appeared locally advanced at initial diagnosis. She underwent right open nephrectomy with renal vein thrombectomy on 06/27/2013. Pathology showed grade 4 clear cell carcinoma. The primary tumor measured 12.7 x 11.0 x 9.5 cm. 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 The renal vein margin was reported to be positive. Dr. Sheppard had indicated in his followup note that he felt it was highly unlikely that she had residual gross tumor, though pathology did report a positive renal vein margin. Disease at that point appeared to be stage III (T3a, N0, M0). 2. In January 2014 she underwent wedge resection of 3 pulmonary nodules. Two of these were metastatic renal cell cancer, one high-grade and one well differentiated. The other was a very small carcinoid tumor. Based on that, she had pathologically confirmed stage IV disease. She was without evidence of disease following the surgery. 3. In February a surveillance CT scan showed a new pulmonary nodule near the left apex, consistent with metastasis. PET/CT showed low-grade FDG avidity in the nodule, but no other areas of abnormal uptake, consistent with a single site of metastatic involvement. She was then treated with SBRT which she completed in March 2015 to a total dose of 4800 cGy. There was evidence of positive treatment response on follow-up PET/CT in June 2015. 4. Her surveillance CT scans in March 2017 showed an enlarging pulmonary nodule in the lingula, suspicious for metastasis. She was referred to Dr. Osman. She underwent SBRT to the lingula lesion, completed on 05/06/2017 to a total dose of 4800 cGy. 5. She also is known to have multi nodular goiter. This includes two dominant nodules on the left side, the largest in the left inferior lobe measuring 2.[address] and 2.5 cm by ultrasound. It has appeared stable on the most recent studies, and a previous FNA done prior to the nephrectomy was benign. Her other medical illnesses include: 6. Hypertension. 7. Type II diabetes. 8. Chronic kidney disease. 9. GERD. 10. Anxiety/depression. She has remained on observation/expectant management following completion of the SBRT in April 2017. Her most recent CT scans, from 09/11/2018, showed findings which were felt to be suspicious for recurrence at the site of the tumor nodule in the left lung apex. Those changes, though, were rather subtle, and there was no other evidence of disease progression. On further evaluation with restaging PET/CT in December 2018, the density at the left apex was FDG negative and most likely scarring. There were no areas of abnormal uptake on that study. Within the past year she had become mildly anemic again. Her serum iron studies were consistent with iron deficiency, but her anemia continued to worsen despite oral iron supplementation. She was then given parenteral iron replacement with infusions of Injectafer in September and in October 2019. During follow-up she has remained moderately anemic. She does appear to be showing some gradual decline in performance status. Thus far there is been no documented progression of the renal cell cancer, but I am concerned about the anemia, as it was the presenting feature of her renal cell cancer. I also am concerned that she is not controlling her diabetes very well. Plan: She remains on observation/expectant management for the renal cell cancer. She will be given a prescription for Protonix for her GI symptoms. She will be scheduled for restaging CT scans in 1 month. In the meantime, I also will refer her to Dr. Pollock for management of her diabetes. Signed By: Diogenes Ruiz M.D. <<Signature on File>>
== END 2020-03-24 14:00 | disposition home or self-care (01) ==
LOC: ONCMED 14:05
PROVIDERS: PCP Internal Medicine; Visit Provider Internal Medicine Medical Oncology
DX: Z08 Encounter for follow-up examination after completed treatment for malignant neoplasm (principal); Z85.528 Personal history of other malignant neoplasm of kidney; E11.42 Type 2 diabetes mellitus with diabetic polyneuropathy; I12.0 Hypertensive chronic kidney disease with stage 5 chronic kidney disease or end stage renal disease; N18.9 Chronic kidney disease, unspecified; K21.9 Gastro-esophageal reflux disease without esophagitis; F41.9 Anxiety disorder, unspecified; F32.9 Major depressive disorder, single episode, unspecified
CPT/HCPCS: 99214

== ENCOUNTER → 2020-03-31 13:07 | Outpatient (BNVA) | payer MEDICARE, OTHER, SELFPAY | PROVIDERS: PCP Internal Medicine; Referring Provider Internal Medicine Medical Oncology; Visit Provider Internal Medicine | DX: E11.42 Type 2 diabetes mellitus with diabetic polyneuropathy (principal); N18.4 Chronic kidney disease, stage 4 (severe) | CPT/HCPCS: 99203 ==

== ENCOUNTER 2020-04-25 10:08 | Outpatient (CLI) | payer MEDICARE, OTHER, SELFPAY ==
--- NOTE | 2020-04-25 10:00 | CT_ITS ---
WS: [id number] CT CHEST, ABDOMEN AND PELVIS NONCONTRAST. HISTORY: RENAL CELL CANCER TECHNIQUE: Contiguous 5 mm axial imaging performed through the chest, abdomen and pelvis without IV c ontrast, oral contrast has been provided. Coronal and sagittal reformats chest. Coronal and sagittal reformats through the abdomen and pelvis. All CT scans at [facility] use at least one of these dose optimization techniques: automated exposure control; mA and/or kV adjustment per patient s ize (includes targeted exams where dose is matched to clinical indication); or iterative reconstructi on. CONTRAST: None DLP: 2488.92 mGycm COMPARISON: 01/25/2020 and 06/18/2019, 11/29/[address]: Postoperative changes in the RIGHT upper and RIGHT middle lobes. There is mild volume loss with scarring which is unchanged over multiple prior years. Nodule described at the RIGHT lung base o n the prior study 01/25/2020 is either resolved or become very small caliber with adjacent atelectasis . Triangular opacification at the LEFT apex is stable over multiple prior years measuring 18 x 12 mm. Focal area of atelectasis and scarring extending towards the lingula. No mediastinal or hilar adenop athy. Heart size is normal. No pericardial or pleural effusions. There is a small amount of oral cont rast in the esophagus. Small thyroid nodules. Abdomen CT: Mild hepatomegaly and hepatic steatosis. No metastatic disease on this unenhanced study. Gallbladder and pancreas and spleen are negative. No adrenal mass. Prior RIGHT nephrectomy. Negative LEFT kidney. Mild atherosclerosis aorta. No adenopathy or free fluid. There is an intussusception in the small bowel in the LEFT abdomen. This is probably a transient intu ssusception. Scattered colonic diverticular disease without diverticulosis. The appendix is normal. Pelvic CT: Small atrophic uterus as expected. No pelvic mass. Nondistended urinary bladder. No adenop athy. L5 anterolisthesis by 10 mm and bilateral pars defects. No osteoblastic or osteolytic bone disease. CT/CT chest abd pel wo con IMPRESSION: 1. Stable LEFT upper lobe irregular opacification over multiple prior examinat ions. 2. Stable postsurgical changes in the RIGHT upper and RIGHT middle lobes. 3. Resolved RIGHT basilar nodule as described on 01/25/2020. 4. Prior RIGHT nephrectomy. 5. No evidence for metastatic disease or interval change within the chest, abd omen or pelvis. 6. Hepatic steatosis. 7. Transient intussusception small bowel LEFT abdomen. If intussusception pers ist lead point mass should be considered as a possible etiology.
[2020-04-25] MEDS: iohexol 300 mg/mL 50 mL Btl PO (11:03)
== END 2020-04-25 10:09 | disposition home or self-care (01) ==
LOC: RADWPI 10:13
PROVIDERS: Family Provider Internal Medicine; PCP Internal Medicine; Visit Provider Internal Medicine Medical Oncology
DX: C64.1 Malignant neoplasm of right kidney, except renal pelvis (principal); K76.0 Fatty (change of) liver, not elsewhere classified; Z90.5 Acquired absence of kidney
CPT/HCPCS: 71250; 74176; Q9967

== ENCOUNTER 2020-04-29 07:50 | Outpatient (CLI) | payer MEDICARE, OTHER, SELFPAY ==
[2020-04-29 08:30] LABS: Basophils # 0.1 10^3/uL (0.0-0.1); Basophils % 0.5 %; Eosinophils # 0.7 10^3/uL (0.0-0.8); Eosinophils % 6.5 %; Hematocrit 29.9 % (37.0-47.0); Hemoglobin 8.6 g/dL (11.5-15.3); Lymphocytes % 9.1 %; Mean Corpuscular HGB Conc 28.8 g/dL (30.0-36.0); Mean Corpuscular Hemoglobin 27.2 pg (28.0-34.0); Mean Corpuscular Volume 94.6 fL (81-99); Mean Platelet Volume 11.2 fL (7.4-10.4); Monocytes # 0.7 10^3/uL (0.2-0.9); Monocytes % 6.1 %; Neutrophils % 77.3 %; Nucleated Red Blood Cells % 0 %; Platelet Count 438 10^3/cmm (130-400); Red Blood Count 3.16 10^6/uL (4.1-5.3); Red Cell Distribution Width 14.5 % (12.1-15.1); White Blood Count 10.6 10^3/uL (4.0-10.0)
[2020-04-29 08:41] LABS: Estmated Average Glucose 192; Hemoglobin A1C 8.3 % (4.0-6.0)
[2020-04-29 09:14] LABS: Alanine Aminotransferase 12 U/L (0-33); Albumin Level 3.7 g/dL (3.5-5.2); Alkaline Phosphatase 85 IU/L (35-105); Anion Gap 16.8 (5-19); Aspartate Amino Transferase 13 U/L (0-32); Blood Urea Nitrogen 25 mg/dL (8-23); Calcium 8.5 mg/dL (8.5-10.5); Carbon Dioxide 24 mmol/L (22-29); Chloride 98 mmol/L (98-107); Chol HDL Ratio 3.91 mg/dL (0.0-4.40); Cholesterol 176 mg/dL (0-200); Globulin 3.4 g/dL (1.3-4.6); Glucose 218 mg/dL (65-115); HDL Cholesterol 45 mg/dL (60-100); Iron 27 ug/dL (37-145); LDL Cholesterol Calculated 82 mg/dL (50-129); LDL HDL Ratio 1.82 RATIO (0.00-3.22); Lactate Dehydrogenase 166 U/L (135-214); Osmolality Calculated 281 mOsm/kg (285-295); Potassium 4.8 mmol/L (3.5-5.1); Sodium 134 mmol/L (136-145); Total Bilirubin 0.2 mg/dL (0.15-1.2); Total Iron Binding Capacity 224 mcg/dl; Total Protein 7.1 g/dL (6.6-8.7); Triglycerides 247 mg/dL (0-150); Unsaturated Iron Binding 197 ug/dL (112-347); Vitamin B12 402 pg/mL (232-1245)
[2020-04-29 09:18] LABS: Erythrocyte Sedimentation Rate 88 mm/hr (0-15)
[2020-04-29] MEDS: sodium chloride 0.9% (100 ml) 100 ML 75 ML (10:50)
[2020-04-29] MEDS: ferric carboxy (IVPB) 750 MG in sodium chloride 0.9% (100 ml) 100 ML 460 MG IV (10:50)
--- NOTE | 2020-05-03 10:47 | ONC FU_ITS ---
Dr. Ruiz Patient Follow-Up Note Patient: Angelika Sanchez Unit #: [id number]: 1945 Dicatated By: Diogenes Ruiz M.D.Date of Visit:Apr 29, 2020 Onc Med Follow-up/Prog Note Chief Complaint: Anemia/renal cell cancer. History of Present Illness: This is a 75 year-old woman wtih metastatic renal cell cancer. She also has mild to moderately severe anemia. I had initially seen in November 2012 with persistent anemia following an episode of tularemia the preceding fall. She had been in good health until March of 2012 when she came down with a high fever. She said she had never been so sick in her life. The illness was associated with a sore in the area of the left axilla. She ultimately was determined to have and was treated for tularemia. She did show some gradual improvement with treatment, but she never actually got better, and her laboratory studies showed persistent anemia and elevated sed rate. She failed to improve with parenteral iron replacement and with retreatment of the tularemia. Abdominal CT scan in May 2013 showed a large right renal mass consistent with renal cell carcinoma. There was suspected invasion of the right renal vein. A small right upper lobe pulmonary nodule was indeterminate. She also was noted to have a 2.3 x 1.6 cm nodule in the left lobe of the thyroid. There was no other obvious metastatic disease. She underwent right nephrectomy on 06/27/13. Pathology showed grade 4 clear cell carcinoma. The tumor measured 12.7 x 11.0 x 9.5 cm. There was gross extension into the renal vein, and the renal vein margin was noted to be positive. All other surgical margins were negative. One hilar lymph node was negative. Pathologic staging was pT3a, pN0. She indicates that prior to the nephrectomy, she did see an pier hand helper, and biopsy of the thyroid nodule reportedly was benign. She did develop a wound infection, but that subsequently resolved. Her postoperative course was unremarkable. A followup CT scan in August 2013 showed no significant change in the right upper lobe pulmonary nodule. A right middle lobe nodule also was reported on that study. It measured only 2 to 3 mm, and it was noted to be unchanged. However, repeat CT scans in November 2013 did show a significant increase in the right upper lobe nodule. The small right middle lobe nodule and another small nodule in the right lower lobe appeared stable or perhaps slightly increased. At that point she was referred to Dr. Coates. On 01/14/2014 she underwent right thoracotomy with wedge resection of all 3 pulmonary nodules. Pathology on the right upper lobe nodule showed a high-grade metastatic renal cell carcinoma measuring 1.4 x 1.3 cm. The right middle lobe nodule was a well differentiated neuroendocrine tumor (carcinoid tumor) measuring 4 x 3 mm. The right lower lobe nodule was a more well differentiated metastatic renal cell carcinoma. During recovery she had some issues with blood pressure control and with lower extremity edema, but she otherwise recovered uneventfully. On a scheduled surveillance CT scan in February 2015, she was found to have a new 7.4 mm irregular nodule at the apex of the left lung. It was felt to be suspicious for a primary tumor or metastatic disease. There were no other suspicious findings at that time. Further evaluation with PET/CT showed low-grade FDG uptake in the nodule with SUV 1.5. It was felt to be consistent with metastatic disease. There were no other areas of abnormal uptake on that study. As the findings were felt to be consistent with a single site of additional metastatic involvement, she was referred to Dr. Osman for SBRT. She completed treatment on 03/31/2015 to a total dose of 4800 cGy, delivered in 4 fractions of 1200 cGy. Follow-up PET/CT on 06/28/2015 showed a residual FDG negative nodule measuring 3 mm consistent with positive response to therapy. There was no evidence of any new metastatic disease on that study. Surveillance chest CT on 12/30/2016 showed postsurgical changes in the right thorax with no evidence of recurrence on the right. There was a new 5 mm nodule noted in the lingula, indeterminate for an early metastatic site. Her follow-up CT scans of the chest, abdomen, and pelvis on 04/12/2017 showed increase in the size of the nodule in the lingula to 6.8 mm compared to 4.4 mm in December. There was stable scarring in the left upper lobe. There were no new pulmonary parenchymal nodules. A 2 cm left thyroid lobe nodule appeared stable. There was no evidence of recurrence or metastatic involvement in the abdomen/pelvis. She was referred to Dr. Osman, and she underwent SBRT to the lesion in the lingula, completed on 05/06/2017 to a total dose of 4800 cGy. She tolerated it well. Her repeat chest CT on 06/30/2017 showed stable 7 mm nodule in the lingula. There was biapical fibrosis, worse the left upper lobe. Restaging CT scans of the chest, abdomen, and pelvis on 11/29/2017 showed further increase in the size of the lingular opacity, measuring 12 mm. The findings were felt to be consistent with metastatic lesion versus postradiation changes. There was stable scar at the left lung apex. There was evidence of hepatic steatosis. There was no evidence of any new metastatic disease. Chest CT on 03/01/2018 showed left apical focal parenchymal nodule measuring 9.1 x 16 mm, felt to be most likely due to scarring and similar to the previous study. Right upper lobe parenchymal scarring also appeared unchanged. There was interval decreased density of the lingula focal opacities, felt to probably represent resolving infectious or inflammatory process. She then continued on observation/expectant management for the renal cell cancer. As of August [address] scans had shown no evidence of disease progression. Her other medical illnesses include hypertension, stage III chronic kidney disease, type 2 diabetes, GERD, and chronic anxiety/depression. She has a history of smoking 2 packs of cigarettes daily for 29 years. She quit smoking in the early . INTERIM HISTORY: A restaging PET/CT on 12/23/2018 showed a 1.2 x 1.7 cm left upper lobe nodule without significant FDG activity. The appearance was consistent with scarring. Right upper lobe scarring was also FDG negative. There were no areas of abnormal uptake on that study. At that point she had become mildly anemic again. Her B12 level was normal. Her serum iron studies from 03/21/2019 showed low transferrin saturation at 18.3%, suggesting possible iron deficiency. Her repeat chest CT on 06/18/2019 showed stable appearance of the irregular nodular focus in the left upper lobe, measuring 10 x 24 mm. Postoperative changes in the right upper and middle lobes appeared stable, as did the appearance of the lingular subsegmental atelectasis or scarring. A 2.2 cm left thyroid lobe nodule also appeared stable. Overall, there was no evidence of disease progression. As of 06/28/2019 there was further decrease in the hemoglobin to 10.9 g with the transferrin saturation further decreased to 15%. At that point she did start an oral iron supplement. She continued on observation/expectant management for the renal cell cancer. As of September 2019 there was further decrease in the hemoglobin to 9.5 g, and at that point she was given parenteral iron replacement with a single infusion of Injectafer. She received a second infusion on 11/13/2019. Initially there was a slight increase in the hemoglobin/hematocrit levels, but they had subsequently declined. Restaging CT scans on 04/25/2020 showed no evidence for metastatic disease or interval change within the chest, abdomen, or pelvis. The irregular opacification in the left upper lobe appeared stable. A right basilar nodule noted on the January study had resolved. There was evidence for hepatic steatosis and there appeared to be transient intussusception of small bowel in the left abdomen. She is seen for a follow-up visit. She complains that her energy is gone. She has limited activity. ECOG score is 2. Her appetite is not great. Her weight is down about 4 pounds. She does not have fever or night sweats. She is short of breath with activity. She does not complain of cough and she has not been having chest pain. She has nausea at times. She also complained that she has a lot of gas. She feels that her bowels do not completely empty with a bowel movement. Yesterday she was having belly pains, but that seems to have resolved. She does not have good bladder control. She says her back/sciatic pain is not too bad. She does not complain of headache. She sometimes has dizziness. She has numbness/tingling in her legs, she feels that it is getting worse. Medications: AmLODIPine Besylate 1 (5 mg) Tablet Oral daily, Hydrocodone-Acetaminophen 1 Tablet (of 5-325 mg) Oral four times a day, Losartan Potassium 1 Tablet (of 100 mg) Oral daily, Pantoprazole Sodium 1 Tablet (of 40 mg) Tablet, enteric coated Oral daily, rOPINIRole HCl 1 Tablet (of 0.25 mg) Oral daily PRN, TraZODone HCl 1 (100 mg) Tablet Oral at bedtime PRN, Venlafaxine HCl 1 Tablet (of 150 mg) Oral daily Allergies: Gentamicin Review of Systems: Constitutional - She has been feeling very weak and tired. Her energy is non-existent. She has able to do some light housework yesterday but otherwise she is not doing much at home. Her appetite is poor but she can eat. Her weight is down 4 pounds from last visit. No fever, night sweats, or hot flashes. ECOG score is 2, ENMT - No sinus congestion/drainage. No mouth sores. No sore throat or difficulty swallowing, Hematologic/Lymphatic - No abnormal bruising or bleeding, Respiratory - She gets short of breath with any activity. No cough. No pleuritic pain or hemoptysis, Cardiovascular - No angina pain. No palpitations, Gastrointestinal - No nausea or vomiting. No heartburn or acid reflux. No diarrhea or constipation. No blood in the stool or black stools. She's been having abdominal pain, Genitourinary (F) - No dysuria or hematuria. She has urinary frequency. She has occasional incontinence, Musculoskeletal - Her sciatic pain is unchanged, Integumentary - No skin complications, Neurologic - No headache or dizziness. Her neuropathy in her legs/feet has worsened. No other focal neurologic symptoms, Psychiatric - No anxiety or depression. No insomnia. Vital Signs: Performed on Apr 29, 2020 09:57 Height - 62.00 in Weight - 217.0 lbs (LOW) BSA - 1.98 sq.m BMI - 39.69 (HIGH) Temperature - 97.8 F (LOW) Pulse - 68 /min Respiration - 20 /min BP - 146/66 mm(hg) (HIGH) O2 Sat - 98 % Pain - 2 Physical Examination: Constitutional - She appears somewhat weak generally and she has limited mobility, Eyes - Sclerae nonicteric. Conjunctivae clear, ENMT - No lesions noted in the oral cavity, Hematologic/Lymphatic - No cervical, clavicular, or axillary adenopathy, Respiratory - Lungs sound clear with diminished air movement bilaterally, Cardiovascular - Heart rhythm is regular. There is a II/ systolic murmur. There is no gallop or rub noted, Abdomen - Moderately distended. Liver and spleen are not enlarged. There is no abdominal mass or ascites noted and there is no inguinal adenopathy, Extremities - No edema, Neurologic - There are no focal neurologic deficits noted. Lab/Imaging: CBC shows hemoglobin 8.6 g, white blood cell count 10,600, and platelet count 438,000. Sed rate is elevated at 88 mm/hour. Comprehensive metabolic profile shows some improvement in the renal function with BUN 25 and creatinine 1.7 mg/dL. Liver enzymes are normal. Hemoglobin A1c is elevated at 8.3%. Her serum iron is low at 27 mcg/dL with transferrin saturation 12%, consistent with iron deficiency. Impression: 1. Patient with stage IV renal cell cancer. Her disease appeared locally advanced at initial diagnosis. She underwent right open nephrectomy with renal vein thrombectomy on 06/27/2013. Pathology showed grade 4 clear cell carcinoma. The primary tumor measured 12.7 x 11.0 x 9.5 cm. 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 The renal vein margin was reported to be positive. Dr. Sheppard had indicated in his followup note that he felt it was highly unlikely that she had residual gross tumor, though pathology did report a positive renal vein margin. Disease at that point appeared to be stage III (T3a, N0, M0). 2. In January 2014 she underwent wedge resection of 3 pulmonary nodules. Two of these were metastatic renal cell cancer, one high-grade and one well differentiated. The other was a very small carcinoid tumor. Based on that, she had pathologically confirmed stage IV disease. She was without evidence of disease following the surgery. 3. In February a surveillance CT scan showed a new pulmonary nodule near the left apex, consistent with metastasis. PET/CT showed low-grade FDG avidity in the nodule, but no other areas of abnormal uptake, consistent with a single site of metastatic involvement. She was then treated with SBRT which she completed in March 2015 to a total dose of 4800 cGy. There was evidence of positive treatment response on follow-up PET/CT in June 2015. 4. Her surveillance CT scans in March 2017 showed an enlarging pulmonary nodule in the lingula, suspicious for metastasis. She was referred to Dr. Osman. She underwent SBRT to the lingula lesion, completed on 05/06/2017 to a total dose of 4800 cGy. 5. She also is known to have multi nodular goiter. This includes two dominant nodules on the left side, the largest in the left inferior lobe measuring 2.[address] and 2.5 cm by ultrasound. It has appeared stable on the most recent studies, and a previous FNA done prior to the nephrectomy was benign. Her other medical illnesses include: 6. Hypertension. 7. Type II diabetes. 8. Chronic kidney disease. 9. GERD. 10. Anxiety/depression. She has remained on observation/expectant management following completion of the SBRT in April 2017. Her most recent CT scans, from 09/11/2018, showed findings which were felt to be suspicious for recurrence at the site of the tumor nodule in the left lung apex. Those changes, though, were rather subtle, and there was no other evidence of disease progression. On further evaluation with restaging PET/CT in December 2018, the density at the left apex was FDG negative and most likely scarring. There were no areas of abnormal uptake on that study. Within the past year she had become mildly anemic again. Her serum iron studies were consistent with iron deficiency, but her anemia continued to worsen despite oral iron supplementation. She was then given parenteral iron replacement with infusions of Injectafer in September and in October 2019. During follow-up she has remained moderately anemic. Her hemoglobin/hematocrit had initially shown some increase following the parenteral iron, but they have since then continued to decline. Her serum iron studies are again suggestive of iron deficiency, but she also has significantly elevated sed rate. I am very concerned about the possibility of recurrence/progression of the underlying renal cell cancer, though none is evident by CT scan. Plan: With evidence of iron deficiency, she will again be given parenteral iron replacement with 2 infusions of Injectafer, as she previously had not responded to oral iron replacement. She also will bring in a stool sample for IFOB. She will be scheduled for a 1-month interval follow-up visit with repeat lab studies. Depending on the results, I may then schedule her for restaging PET/CT. Signed By: Diogenes Ruiz M.D. <<Signature on File>>
== END 2020-04-29 07:51 | disposition home or self-care (01) ==
LOC: ONCMED 07:54
PROVIDERS: PCP Internal Medicine; Visit Provider Internal Medicine Medical Oncology
DX: C7A.090 Malignant carcinoid tumor of the bronchus and lung (principal); C78.01 Secondary malignant neoplasm of right lung; C78.02 Secondary malignant neoplasm of left lung; D50.9 Iron deficiency anemia, unspecified; E11.22 Type 2 diabetes mellitus with diabetic chronic kidney disease; N18.3 Chronic kidney disease, stage 3 (moderate); I10 Essential (primary) hypertension; K21.9 Gastro-esophageal reflux disease without esophagitis; F41.9 Anxiety disorder, unspecified; F32.9 Major depressive disorder, single episode, unspecified
CPT/HCPCS: 80053; 80061; 82607; 83036; 83540; 83550; 83615; 85025; 85651; 96365; 99214; J1439

== ENCOUNTER 2020-05-05 13:02 | Outpatient (CLI) | payer MEDICARE, OTHER, SELFPAY ==
[2020-05-05] MEDS: ferric carboxy (IVPB) 750 MG in sodium chloride 0.9% (100 ml) 100 ML 345 MG IV (14:00)
== END 2020-05-05 13:03 | disposition home or self-care (01) ==
PROVIDERS: PCP Internal Medicine; Visit Provider Internal Medicine Medical Oncology
DX: D50.9 Iron deficiency anemia, unspecified (principal)
CPT/HCPCS: 82274; 96365; J1439

== ENCOUNTER 2020-06-02 05:57 | Outpatient (CLI) | payer MEDICARE, OTHER, SELFPAY ==
[2020-06-02 09:11] LABS: Basophils # 0.1 10^3/uL (0.0-0.1); Basophils % 0.6 %; Eosinophils # 0.3 10^3/uL (0.0-0.8); Eosinophils % 3.6 %; Hematocrit 32.2 % (37.0-47.0); Hemoglobin 9.6 g/dL (11.5-15.3); Lymphocytes # 1.1 10^3/uL (0.8-4.8); Lymphocytes % 12.3 %; Mean Corpuscular HGB Conc 29.8 g/dL (30.0-36.0); Mean Corpuscular Volume 93.9 fL (81-99); Mean Platelet Volume 11.1 fL (7.4-10.4); Monocytes # 0.6 10^3/uL (0.2-0.9); Monocytes % 7.2 %; Neutrophils # 6.79 10^3/uL (1.8-7.7); Nucleated Red Blood Cells % 0 %; Platelet Count 398 10^3/cmm (130-400); Red Blood Count 3.43 10^6/uL (4.1-5.3); Red Cell Distribution Width 15.9 % (12.1-15.1); White Blood Count 8.9 10^3/uL (4.0-10.0)
[2020-06-02 09:33] LABS: Alanine Aminotransferase 10 U/L (0-33); Albumin Level 3.8 g/dL (3.5-5.2); Alkaline Phosphatase 80 IU/L (35-105); Anion Gap 18.5 (5-19); Aspartate Amino Transferase 12 U/L (0-32); Blood Urea Nitrogen 36 mg/dL (8-23); Calcium 9.5 mg/dL (8.5-10.5); Carbon Dioxide 20 mmol/L (22-29); Chloride 99 mmol/L (98-107); Glucose 180 mg/dL (65-115); Iron 43 ug/dL (37-145); Lactate Dehydrogenase 153 U/L (135-214); Osmolality Calculated 289 mOsm/kg (285-295); Percent Saturation 21.9 % (20-50); Potassium 4.5 mmol/L (3.5-5.1); Sodium 133 mmol/L (136-145); Total Bilirubin 0.2 mg/dL (0.15-1.2); Total Iron Binding Capacity 196 mcg/dl; Total Protein 6.8 g/dL (6.6-8.7); Unsaturated Iron Binding 153 ug/dL (112-347)
[2020-06-02 09:52] LABS: Erythrocyte Sedimentation Rate 92 mm/hr (0-15)
--- NOTE | 2020-06-06 14:40 | ONC FU_ITS ---
Dr. Ruiz Patient Follow-Up Note Patient: Angelika Sanchez Unit #: [id number]: 1945 Dicatated By: Diogenes Ruiz M.D.Date of Visit:Jun 02, 2020 Onc Med Follow-up/Prog Note Chief Complaint: Anemia/renal cell cancer. History of Present Illness: This is a 75 year-old woman wtih metastatic renal cell cancer. She also has mild to moderately severe anemia. I had initially seen in November 2012 with persistent anemia following an episode of tularemia the preceding fall. She had been in good health until March of 2012 when she came down with a high fever. She said she had never been so sick in her life. The illness was associated with a sore in the area of the left axilla. She ultimately was determined to have and was treated for tularemia. She did show some gradual improvement with treatment, but she never actually got better, and her laboratory studies showed persistent anemia and elevated sed rate. She failed to improve with parenteral iron replacement and with retreatment of the tularemia. Abdominal CT scan in May 2013 showed a large right renal mass consistent with renal cell carcinoma. There was suspected invasion of the right renal vein. A small right upper lobe pulmonary nodule was indeterminate. She also was noted to have a 2.3 x 1.6 cm nodule in the left lobe of the thyroid. There was no other obvious metastatic disease. She underwent right nephrectomy on 06/27/13. Pathology showed grade 4 clear cell carcinoma. The tumor measured 12.7 x 11.0 x 9.5 cm. There was gross extension into the renal vein, and the renal vein margin was noted to be positive. All other surgical margins were negative. One hilar lymph node was negative. Pathologic staging was pT3a, pN0. She indicates that prior to the nephrectomy, she did see an shell plater, and biopsy of the thyroid nodule reportedly was benign. She did develop a wound infection, but that subsequently resolved. Her postoperative course was unremarkable. A followup CT scan in August 2013 showed no significant change in the right upper lobe pulmonary nodule. A right middle lobe nodule also was reported on that study. It measured only 2 to 3 mm, and it was noted to be unchanged. However, repeat CT scans in November 2013 did show a significant increase in the right upper lobe nodule. The small right middle lobe nodule and another small nodule in the right lower lobe appeared stable or perhaps slightly increased. At that point she was referred to Dr. Coates. On 01/14/2014 she underwent right thoracotomy with wedge resection of all 3 pulmonary nodules. Pathology on the right upper lobe nodule showed a high-grade metastatic renal cell carcinoma measuring 1.4 x 1.3 cm. The right middle lobe nodule was a well differentiated neuroendocrine tumor (carcinoid tumor) measuring 4 x 3 mm. The right lower lobe nodule was a more well differentiated metastatic renal cell carcinoma. During recovery she had some issues with blood pressure control and with lower extremity edema, but she otherwise recovered uneventfully. On a scheduled surveillance CT scan in February 2015, she was found to have a new 7.4 mm irregular nodule at the apex of the left lung. It was felt to be suspicious for a primary tumor or metastatic disease. There were no other suspicious findings at that time. Further evaluation with PET/CT showed low-grade FDG uptake in the nodule with SUV 1.5. It was felt to be consistent with metastatic disease. There were no other areas of abnormal uptake on that study. As the findings were felt to be consistent with a single site of additional metastatic involvement, she was referred to Dr. Osman for SBRT. She completed treatment on 03/31/2015 to a total dose of 4800 cGy, delivered in 4 fractions of 1200 cGy. Follow-up PET/CT on 06/28/2015 showed a residual FDG negative nodule measuring 3 mm consistent with positive response to therapy. There was no evidence of any new metastatic disease on that study. Surveillance chest CT on 12/30/2016 showed postsurgical changes in the right thorax with no evidence of recurrence on the right. There was a new 5 mm nodule noted in the lingula, indeterminate for an early metastatic site. Her follow-up CT scans of the chest, abdomen, and pelvis on 04/12/2017 showed increase in the size of the nodule in the lingula to 6.8 mm compared to 4.4 mm in December. There was stable scarring in the left upper lobe. There were no new pulmonary parenchymal nodules. A 2 cm left thyroid lobe nodule appeared stable. There was no evidence of recurrence or metastatic involvement in the abdomen/pelvis. She was referred to Dr. Osman, and she underwent SBRT to the lesion in the lingula, completed on 05/06/2017 to a total dose of 4800 cGy. She tolerated it well. Her repeat chest CT on 06/30/2017 showed stable 7 mm nodule in the lingula. There was biapical fibrosis, worse the left upper lobe. Restaging CT scans of the chest, abdomen, and pelvis on 11/29/2017 showed further increase in the size of the lingular opacity, measuring 12 mm. The findings were felt to be consistent with metastatic lesion versus postradiation changes. There was stable scar at the left lung apex. There was evidence of hepatic steatosis. There was no evidence of any new metastatic disease. Chest CT on 03/01/2018 showed left apical focal parenchymal nodule measuring 9.1 x 16 mm, felt to be most likely due to scarring and similar to the previous study. Right upper lobe parenchymal scarring also appeared unchanged. There was interval decreased density of the lingula focal opacities, felt to probably represent resolving infectious or inflammatory process. She then continued on observation/expectant management for the renal cell cancer. As of August [address] scans had shown no evidence of disease progression. Her other medical illnesses include hypertension, stage III chronic kidney disease, type 2 diabetes, GERD, and chronic anxiety/depression. She has a history of smoking 2 packs of cigarettes daily for 29 years. She quit smoking in the early . INTERIM HISTORY: A restaging PET/CT on 12/23/2018 showed a 1.2 x 1.7 cm left upper lobe nodule without significant FDG activity. The appearance was consistent with scarring. Right upper lobe scarring was also FDG negative. There were no areas of abnormal uptake on that study. At that point she had become mildly anemic again. Her B12 level was normal. Her serum iron studies from 03/21/2019 showed low transferrin saturation at 18.3%, suggesting possible iron deficiency. Her repeat chest CT on 06/18/2019 showed stable appearance of the irregular nodular focus in the left upper lobe, measuring 10 x 24 mm. Postoperative changes in the right upper and middle lobes appeared stable, as did the appearance of the lingular subsegmental atelectasis or scarring. A 2.2 cm left thyroid lobe nodule also appeared stable. Overall, there was no evidence of disease progression. As of 06/28/2019 there was further decrease in the hemoglobin to 10.9 g with the transferrin saturation further decreased to 15%. At that point she did start an oral iron supplement. She continued on observation/expectant management for the renal cell cancer. As of September 2019 there was further decrease in the hemoglobin to 9.5 g, and at that point she was given parenteral iron replacement with a single infusion of Injectafer. She received a second infusion on 11/13/2019. Initially there was a slight increase in the hemoglobin/hematocrit levels, but they had subsequently declined. Restaging CT scans on 04/25/2020 showed no evidence for metastatic disease or interval change within the chest, abdomen, or pelvis. The irregular opacification in the left upper lobe appeared stable. A right basilar nodule noted on the January study had resolved. There was evidence for hepatic steatosis and there appeared to be transient intussusception of small bowel in the left abdomen. She is seen for a follow-up visit. She continues to complain that she has no energy. Her activity is limited. ECOG score is 2. She has not had good appetite, and she has been losing weight. She does not have fever or night sweats. She has sore mouth due to her teeth, which are in poor repair. She has not been able to get into see a dentist. She has shortness of breath with activity. She does not complain of cough and she has not been having chest pain. She has been having some nausea and she has ongoing problems with constipation. At the time of her last visit she was having abdominal pain, but that resolved within 4 to 5 days. She describes her bladder function as iffy. She has pain in her lower back and left hip, but it comes and goes. She does not complain of headache. She sometimes has dizziness. She has neuropathy in her feet. She has leg cramps at night. Medications: AmLODIPine Besylate 1 (5 mg) Tablet Oral daily, Hydrocodone-Acetaminophen 1 Tablet (of 5-325 mg) Oral four times a day, Losartan Potassium 1 Tablet (of 100 mg) Oral daily, Pantoprazole Sodium 1 Tablet (of 40 mg) Tablet, enteric coated Oral daily, rOPINIRole HCl 1 Tablet (of 0.25 mg) Oral daily PRN, TraZODone HCl 1 (100 mg) Tablet Oral at bedtime PRN, Venlafaxine HCl 1 Tablet (of 150 mg) Oral daily Allergies: Gentamicin Review of Systems: Constitutional - She has no energy. She is not doing anything at home. Her appetite is poor. Her weight is down 11 pounds. No fever, night sweats, or hot flashes. ECOG score is 2, ENMT - No sinus congestion/drainage. Her mouth is sore. No sore throat or difficulty swallowing, Hematologic/Lymphatic - No abnormal bruising or bleeding, Respiratory - She gets short of breath with exertion. No cough. No pleuritic pain or hemoptysis, Cardiovascular - No angina pain. No palpitations, Gastrointestinal - She has nausea. No vomiting. No heartburn or acid reflux. No diarrhea. She has chronic difficulties with constipation. No blood in the stool or black stools. The abdominal pain she was having is resolved, Genitourinary (F) - No dysuria or hematuria. No urinary frequency. She has some incontinence, Musculoskeletal - She has pain in her lower back and left hip, but it just comes and goes, Integumentary - No skin complications, Neurologic - No headache or dizziness. She has a significant amount of neuropathy pain. No other focal neurologic symptoms, Psychiatric - She has anxiety and depression. No insomnia. Vital Signs: Performed on Jun 02, 2020 10:11 Height - 62.00 in Weight - 206.8 lbs (LOW) BSA - 1.94 sq.m BMI - 37.82 (HIGH) Temperature - 97.8 F (LOW) Pulse - 77 /min Respiration - 24 /min BP - 158/70 mm(hg) (HIGH) O2 Sat - 97 % Pain - 1 Physical Examination: Constitutional - She appears somewhat weak generally, Eyes - Sclerae nonicteric. Conjunctivae clear, ENMT - No lesions noted in the oral cavity, Hematologic/Lymphatic - No cervical, clavicular, or axillary adenopathy, Respiratory - Lungs sound clear with diminished air movement bilaterally, Cardiovascular - Heart rhythm is regular. There is a II/ systolic murmur. There is no gallop or rub noted, Abdomen - Moderately distended. Liver and spleen are not enlarged. There is no abdominal mass or ascites noted and there is no inguinal adenopathy, Extremities - No edema, Neurologic - There are no focal neurologic deficits noted. Lab/Imaging: Test performed on Jun 02, 2020 08:47 Iron 43 mcg/dL LDH (Total) 153 U/L Sodium 133 mmol/L Iron Binding Capacity (TIBC) 196 mcg/dl Potassium 4.5 mmol/L % Iron Saturation 21.9 % Chloride 99 mmol/L CO2 20 mmol/L UIBC 153 mcg/dL Anion Gap 18.5 BUN 36 mg/dL Creatinine 1.6 mg/dL Cr Clearance (Est) 45.68 mL/min Glucose 180 mg/dL Osmolality - Calculated 289 mOsm/kg Calcium 9.5 mg/dL Protein, Total 6.8 g/dL Albumin 3.8 g/dL Globulin 3.0 g/dL Bilirubin, Total 0.2 mg/dL ALT (SGPT) 10 U/L AST (SGOT) 12 U/L Alkaline Phosphatase 80 IU/L ESR (Sed Rate) 92 mm/hr WBC 8.9 10 3/uL RBC 3.43 10 6/uL HGB 9.6 g/dL HCT 32.2 % MCV 93.9 fL MCH 28.0 pg MCHC 29.8 g/dL RDW 15.9 % Platelet Count 398 10 3/cmm MPV 11.1 fL Neutrophils 6.79 10 3/uL Lymphocytes 1.1 10 3/uL Monocytes 0.6 10 3/uL Eosinophils 0.3 10 3/uL Basophils 0.1 10 3/uL Neutrophil % 76.0 % Lymphocyte % 12.3 % Monocyte % 7.2 % Eosinophil % 3.6 % Basophils % 0.6 % NRBC % 0 % Impression: 1. Patient with stage IV renal cell cancer. Her disease appeared locally advanced at initial diagnosis. She underwent right open nephrectomy with renal vein thrombectomy on 06/27/2013. Pathology showed grade 4 clear cell carcinoma. The primary tumor measured 12.7 x 11.0 x 9.5 cm. 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 The renal vein margin was reported to be positive. Dr. Sheppard had indicated in his followup note that he felt it was highly unlikely that she had residual gross tumor, though pathology did report a positive renal vein margin. Disease at that point appeared to be stage III (T3a, N0, M0). 2. In January 2014 she underwent wedge resection of 3 pulmonary nodules. Two of these were metastatic renal cell cancer, one high-grade and one well differentiated. The other was a very small carcinoid tumor. Based on that, she had pathologically confirmed stage IV disease. She was without evidence of disease following the surgery. 3. In February a surveillance CT scan showed a new pulmonary nodule near the left apex, consistent with metastasis. PET/CT showed low-grade FDG avidity in the nodule, but no other areas of abnormal uptake, consistent with a single site of metastatic involvement. She was then treated with SBRT which she completed in March 2015 to a total dose of 4800 cGy. There was evidence of positive treatment response on follow-up PET/CT in June 2015. 4. Her surveillance CT scans in March 2017 showed an enlarging pulmonary nodule in the lingula, suspicious for metastasis. She was referred to Dr. Osman. She underwent SBRT to the lingula lesion, completed on 05/06/2017 to a total dose of 4800 cGy. 5. She also is known to have multi nodular goiter. This includes two dominant nodules on the left side, the largest in the left inferior lobe measuring 2.[address] and 2.5 cm by ultrasound. It has appeared stable on the most recent studies, and a previous FNA done prior to the nephrectomy was benign. Her other medical illnesses include: 6. Hypertension. 7. Type II diabetes. 8. Chronic kidney disease. 9. GERD. 10. Anxiety/depression. She has remained on observation/expectant management following completion of the SBRT in April 2017. Her most recent CT scans, from 09/11/2018, showed findings which were felt to be suspicious for recurrence at the site of the tumor nodule in the left lung apex. Those changes, though, were rather subtle, and there was no other evidence of disease progression. On further evaluation with restaging PET/CT in December 2018, the density at the left apex was FDG negative and most likely scarring. There were no areas of abnormal uptake on that study. Within the past year she had become mildly anemic again. Her serum iron studies were consistent with iron deficiency, but her anemia continued to worsen despite oral iron supplementation. She was then given parenteral iron replacement with infusions of Injectafer in September and in October 2019. During follow-up her hemoglobin/hematocrit had initially shown some increase, but the had subsequently declined. As of her follow-up visit in April 2020 her serum iron studies were again suggestive of iron deficiency, and she did receive additional parenteral iron replacement with 2 infusions of Injectafer. She tolerated it well, but there is just been a slight increase in her hemoglobin/hematocrit levels, at this point she remains moderately anemic. She also has had very significantly elevated sed rate, and together those findings are very worrisome for recurrence/progression of the renal cell cancer, though it has not been evident on her noncontrast CT scans. Plan: At least for now she remains on observation/expectant management. She is monitoring her blood sugars, and if she can maintain a fasting blood sugar less than 170 on a consistent basis, I will schedule her for repeat PET/CT. I will otherwise just plan a follow-up visit in 1 month. In the meantime, she will increase ropinirole to 0.5 mg at bedtime. Signed By: Diogenes Ruiz M.D. <<Signature on File>>
== END 2020-06-02 05:58 | disposition home or self-care (01) ==
LOC: ONCMED 05:59
PROVIDERS: PCP Internal Medicine; Visit Provider Internal Medicine Medical Oncology
DX: Z08 Encounter for follow-up examination after completed treatment for malignant neoplasm (principal); Z85.53 Personal history of malignant neoplasm of renal pelvis; Z85.110 Personal history of malignant carcinoid tumor of bronchus and lung; D50.9 Iron deficiency anemia, unspecified; E04.2 Nontoxic multinodular goiter; E11.9 Type 2 diabetes mellitus without complications; F32.9 Major depressive disorder, single episode, unspecified; F41.9 Anxiety disorder, unspecified; I10 Essential (primary) hypertension; K21.9 Gastro-esophageal reflux disease without esophagitis; N18.30 Chronic kidney disease, stage 3 unspecified
CPT/HCPCS: 36415; 80053; 83540; 83550; 83615; 85025; 85651; 99214

== ENCOUNTER → 2020-06-16 10:22 | Outpatient (BNVA) | payer MEDICARE, OTHER, SELFPAY | PROVIDERS: PCP Internal Medicine; Visit Provider Internal Medicine | DX: E11.22 Type 2 diabetes mellitus with diabetic chronic kidney disease (principal); N18.4 Chronic kidney disease, stage 4 (severe); E11.42 Type 2 diabetes mellitus with diabetic polyneuropathy; E66.9 Obesity, unspecified; I10 Essential (primary) hypertension | CPT/HCPCS: 99214 ==

== ENCOUNTER 2020-07-31 11:22 | Outpatient (CLI) | payer MEDICARE, OTHER, SELFPAY ==
[2020-07-31 11:50] LABS: Basophils # 0.1 10^3/uL (0.0-0.1); Basophils % 0.5 %; Eosinophils # 0.3 10^3/uL (0.0-0.8); Eosinophils % 3.2 %; Hematocrit 31.4 % (37.0-47.0); Hemoglobin 9.2 g/dL (11.5-15.3); Lymphocytes # 1.2 10^3/uL (0.8-4.8); Lymphocytes % 11.8 %; Mean Corpuscular HGB Conc 29.3 g/dL (30.0-36.0); Mean Corpuscular Hemoglobin 27.1 pg (28.0-34.0); Mean Corpuscular Volume 92.6 fL (81-99); Mean Platelet Volume 10.9 fL (7.4-10.4); Monocytes # 0.7 10^3/uL (0.2-0.9); Monocytes % 6.6 %; Neutrophils # 7.74 10^3/uL (1.8-7.7); Neutrophils % 77.3 %; Nucleated Red Blood Cells % 0 %; Platelet Count 476 10^3/cmm (130-400); Red Blood Count 3.39 10^6/uL (4.1-5.3)
[2020-07-31 12:19] LABS: Alanine Aminotransferase 8 U/L (0-33); Albumin Level 3.6 g/dL (3.5-5.2); Alkaline Phosphatase 81 IU/L (35-105); Anion Gap 17.5 (5-19); Aspartate Amino Transferase 10 U/L (0-32); Blood Urea Nitrogen 27 mg/dL (8-23); Calcium 9.3 mg/dL (8.5-10.5); Carbon Dioxide 23 mmol/L (22-29); Chloride 96 mmol/L (98-107); Globulin 3.2 g/dL (1.3-4.6); Glucose 122 mg/dL (65-115); Iron 27 ug/dL (37-145); Lactate Dehydrogenase 124 U/L (135-214); Osmolality Calculated 280 mOsm/kg (285-295); Percent Saturation 11.8 % (20-50); Potassium 4.5 mmol/L (3.5-5.1); Sodium 132 mmol/L (136-145); Total Bilirubin 0.2 mg/dL (0.15-1.2); Total Iron Binding Capacity 228 mcg/dl; Total Protein 6.8 g/dL (6.6-8.7); Unsaturated Iron Binding 201 ug/dL (112-347)
--- NOTE | 2020-08-03 13:32 | ONC FU_ITS ---
Dr. Ruiz Patient Follow-Up Note Patient: Angelika Sanchez Unit #: [id number]: 1945 Dicatated By: Diogenes Ruiz M.D.Date of Visit:Jul 31, 2020 Onc Med Follow-up/Prog Note Chief Complaint: Anemia/renal cell cancer. History of Present Illness: This is a 75 year-old woman wtih metastatic renal cell cancer. She also has mild to moderately severe anemia. I had initially seen in November 2012 with persistent anemia following an episode of tularemia the preceding fall. She had been in good health until March of 2012 when she came down with a high fever. She said she had never been so sick in her life. The illness was associated with a sore in the area of the left axilla. She ultimately was determined to have and was treated for tularemia. She did show some gradual improvement with treatment, but she never actually got better, and her laboratory studies showed persistent anemia and elevated sed rate. She failed to improve with parenteral iron replacement and with retreatment of the tularemia. Abdominal CT scan in May 2013 showed a large right renal mass consistent with renal cell carcinoma. There was suspected invasion of the right renal vein. A small right upper lobe pulmonary nodule was indeterminate. She also was noted to have a 2.3 x 1.6 cm nodule in the left lobe of the thyroid. There was no other obvious metastatic disease. She underwent right nephrectomy on 06/27/13. Pathology showed grade 4 clear cell carcinoma. The tumor measured 12.7 x 11.0 x 9.5 cm. There was gross extension into the renal vein, and the renal vein margin was noted to be positive. All other surgical margins were negative. One hilar lymph node was negative. Pathologic staging was pT3a, pN0. She indicates that prior to the nephrectomy, she did see an gold leaf printer, and biopsy of the thyroid nodule reportedly was benign. She did develop a wound infection, but that subsequently resolved. Her postoperative course was unremarkable. A followup CT scan in August 2013 showed no significant change in the right upper lobe pulmonary nodule. A right middle lobe nodule also was reported on that study. It measured only 2 to 3 mm, and it was noted to be unchanged. However, repeat CT scans in November 2013 did show a significant increase in the right upper lobe nodule. The small right middle lobe nodule and another small nodule in the right lower lobe appeared stable or perhaps slightly increased. At that point she was referred to Dr. Coates. On 01/14/2014 she underwent right thoracotomy with wedge resection of all 3 pulmonary nodules. Pathology on the right upper lobe nodule showed a high-grade metastatic renal cell carcinoma measuring 1.4 x 1.3 cm. The right middle lobe nodule was a well differentiated neuroendocrine tumor (carcinoid tumor) measuring 4 x 3 mm. The right lower lobe nodule was a more well differentiated metastatic renal cell carcinoma. During recovery she had some issues with blood pressure control and with lower extremity edema, but she otherwise recovered uneventfully. On a scheduled surveillance CT scan in February 2015, she was found to have a new 7.4 mm irregular nodule at the apex of the left lung. It was felt to be suspicious for a primary tumor or metastatic disease. There were no other suspicious findings at that time. Further evaluation with PET/CT showed low-grade FDG uptake in the nodule with SUV 1.5. It was felt to be consistent with metastatic disease. There were no other areas of abnormal uptake on that study. As the findings were felt to be consistent with a single site of additional metastatic involvement, she was referred to Dr. Osman for SBRT. She completed treatment on 03/31/2015 to a total dose of 4800 cGy, delivered in 4 fractions of 1200 cGy. Follow-up PET/CT on 06/28/2015 showed a residual FDG negative nodule measuring 3 mm consistent with positive response to therapy. There was no evidence of any new metastatic disease on that study. Surveillance chest CT on 12/30/2016 showed postsurgical changes in the right thorax with no evidence of recurrence on the right. There was a new 5 mm nodule noted in the lingula, indeterminate for an early metastatic site. Her follow-up CT scans of the chest, abdomen, and pelvis on 04/12/2017 showed increase in the size of the nodule in the lingula to 6.8 mm compared to 4.4 mm in December. There was stable scarring in the left upper lobe. There were no new pulmonary parenchymal nodules. A 2 cm left thyroid lobe nodule appeared stable. There was no evidence of recurrence or metastatic involvement in the abdomen/pelvis. She was referred to Dr. Osman, and she underwent SBRT to the lesion in the lingula, completed on 05/06/2017 to a total dose of 4800 cGy. She tolerated it well. Her repeat chest CT on 06/30/2017 showed stable 7 mm nodule in the lingula. There was biapical fibrosis, worse the left upper lobe. Restaging CT scans of the chest, abdomen, and pelvis on 11/29/2017 showed further increase in the size of the lingular opacity, measuring 12 mm. The findings were felt to be consistent with metastatic lesion versus postradiation changes. There was stable scar at the left lung apex. There was evidence of hepatic steatosis. There was no evidence of any new metastatic disease. Chest CT on 03/01/2018 showed left apical focal parenchymal nodule measuring 9.1 x 16 mm, felt to be most likely due to scarring and similar to the previous study. Right upper lobe parenchymal scarring also appeared unchanged. There was interval decreased density of the lingula focal opacities, felt to probably represent resolving infectious or inflammatory process. She then continued on observation/expectant management for the renal cell cancer. As of August [address] scans had shown no evidence of disease progression. Her other medical illnesses include hypertension, stage III chronic kidney disease, type 2 diabetes, GERD, and chronic anxiety/depression. She has a history of smoking 2 packs of cigarettes daily for 29 years. She quit smoking in the early . INTERIM HISTORY: A restaging PET/CT on 12/23/2018 showed a 1.2 x 1.7 cm left upper lobe nodule without significant FDG activity. The appearance was consistent with scarring. Right upper lobe scarring was also FDG negative. There were no areas of abnormal uptake on that study. At that point she had become mildly anemic again. Her B12 level was normal. Her serum iron studies from 03/21/2019 showed low transferrin saturation at 18.3%, suggesting possible iron deficiency. Her repeat chest CT on 06/18/2019 showed stable appearance of the irregular nodular focus in the left upper lobe, measuring 10 x 24 mm. Postoperative changes in the right upper and middle lobes appeared stable, as did the appearance of the lingular subsegmental atelectasis or scarring. A 2.2 cm left thyroid lobe nodule also appeared stable. Overall, there was no evidence of disease progression. As of 06/28/2019 there was further decrease in the hemoglobin to 10.9 g with the transferrin saturation further decreased to 15%. At that point she did start an oral iron supplement. She continued on observation/expectant management for the renal cell cancer. As of September 2019 there was further decrease in the hemoglobin to 9.5 g, and at that point she was given parenteral iron replacement with a single infusion of Injectafer. She received a second infusion on 11/13/2019. Initially there was a slight increase in the hemoglobin/hematocrit levels, but they had subsequently declined. Restaging CT scans on 04/25/2020 showed no evidence for metastatic disease or interval change within the chest, abdomen, or pelvis. The irregular opacification in the left upper lobe appeared stable. A right basilar nodule noted on the January study had resolved. There was evidence for hepatic steatosis and there appeared to be transient intussusception of small bowel in the left abdomen. Restaging PET/CT on 07/12/2020 showed unchanged, FDG negative left apical pulmonary nodule. Right upper lobe scarring also was FDG negative and appeared stable. There was relatively intense FDG activity in the central small bowel with CT evidence for intussusception. There were no other areas of abnormal uptake. She is seen for a follow-up visit. She continues to complain that she feels tired. She has limited activity. ECOG score is 2. Her appetite is okay, but not good. She has been losing weight. She has no fever or night sweats. She is short of breath with activity. She does not complain of chest pain. She has had some episodes of nausea. She has ongoing problems with constipation, and she does have pain in the lower abdominal area. She has some bladder incontinence. She has some chronic pain, but is adequately managed with hydrocodone/APAP. She has numbness in her lower legs and feet. Medications: AmLODIPine Besylate 1 (5 mg) Tablet Oral daily, Hydrocodone-Acetaminophen 1 Tablet (of 5-325 mg) Oral four times a day, Insulin Glargine 5 Units (of 100 Units/mL) Subcutaneous daily, Losartan Potassium 1 Tablet (of 100 mg) Oral daily, Pantoprazole Sodium 1 Tablet (of 40 mg) Tablet, enteric coated Oral daily, rOPINIRole HCl 1 Tablet (of 0.25 mg) Oral daily PRN, TraZODone HCl 1 (100 mg) Tablet Oral at bedtime PRN, Venlafaxine HCl 1 Tablet (of 150 mg) Oral daily Allergies: Gentamicin Review of Systems: Constitutional - She has been feeling tired. She has limited activity. Appetite is not good. She has lost weight. No fever, night sweats, or hot flashes. ECOG score is 2, ENMT - No sinus congestion/drainage. No mouth sores. She has difficulty chewing due to her teeth. No sore throat or difficulty swallowing, Hematologic/Lymphatic - No abnormal bruising or bleeding, Respiratory - She has shortness of breath with activity. No cough. No pleuritic pain or hemoptysis, Cardiovascular - No angina pain. No palpitations, Gastrointestinal - She has had some episodes of nausea. Her acid reflux is adequately managed with medication. She has ongoing problems with constipation. She has pain in the lower abdominal area. No blood in the stool or black stools, Genitourinary (F) - No dysuria or hematuria. She has urinary frequency. She has incontinence when she stands up, Musculoskeletal - Her pain is equally managed with 2 hydrocodone tablets daily, Neurologic - No headache. She sometimes has dizziness. She has numbness in the lower legs and feet. No other focal neurologic symptoms, Psychiatric - She has anxiety. She sometimes has difficulty sleeping. Vital Signs: Her weight is 196 pounds. Blood pressure 161/63, pulse 81, respirations 22, temp 99.6 degrees, oxygen saturation 96%. Physical Examination: Constitutional - She appears somewhat weak generally, Eyes - Sclerae nonicteric. Conjunctivae clear, ENMT - No lesions noted in the oral cavity, Hematologic/Lymphatic - No cervical, clavicular, or axillary adenopathy, Respiratory - Lungs sound clear with diminished air movement bilaterally, Cardiovascular - Heart rhythm is regular. There is a II/ systolic murmur. There is no gallop or rub noted, Abdomen - Moderately distended but soft. Liver and spleen are not enlarged. There is no abdominal mass or ascites noted and there is no inguinal adenopathy, Extremities - No edema, Neurologic - There are no focal neurologic deficits noted. Lab/Imaging: Test performed on Jul 31, 2020 11:31 Iron 27 mcg/dL LDH (Total) 124 U/L Sodium 132 mmol/L Iron Binding Capacity (TIBC) 228 mcg/dl Potassium 4.5 mmol/L % Iron Saturation 11.8 % Chloride 96 mmol/L CO2 23 mmol/L UIBC 201 mcg/dL Anion Gap 17.5 BUN 27 mg/dL Creatinine 1.7 mg/dL Cr Clearance (Est) 42.9900 mL/min Glucose 122 mg/dL Osmolality - Calculated 280 mOsm/kg Calcium 9.3 mg/dL Protein, Total 6.8 g/dL Albumin 3.6 g/dL Globulin 3.2 g/dL Bilirubin, Total 0.2 mg/dL ALT (SGPT) 8 U/L AST (SGOT) 10 U/L Alkaline Phosphatase 81 IU/L WBC 10.0 10 3/uL RBC 3.39 10 6/uL HGB 9.2 g/dL HCT 31.4 % MCV 92.6 fL MCH 27.1 pg MCHC 29.3 g/dL RDW 15.0 % Platelet Count 476 10 3/cmm MPV 10.9 fL Neutrophils 7.74 10 3/uL Lymphocytes 1.2 10 3/uL Monocytes 0.7 10 3/uL Eosinophils 0.3 10 3/uL Basophils 0.1 10 3/uL Neutrophil % 77.3 % Lymphocyte % 11.8 % Monocyte % 6.6 % Eosinophil % 3.2 % Basophils % 0.5 % NRBC % 0 % Impression: 1. Patient with stage IV renal cell cancer. Her disease appeared locally advanced at initial diagnosis. She underwent right open nephrectomy with renal vein thrombectomy on 06/27/2013. Pathology showed grade 4 clear cell carcinoma. The primary tumor measured 12.7 x 11.0 x 9.5 cm. 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 The renal vein margin was reported to be positive. Dr. Sheppard had indicated in his followup note that he felt it was highly unlikely that she had residual gross tumor, though pathology did report a positive renal vein margin. Disease at that point appeared to be stage III (T3a, N0, M0). 2. In January 2014 she underwent wedge resection of 3 pulmonary nodules. Two of these were metastatic renal cell cancer, one high-grade and one well differentiated. The other was a very small carcinoid tumor. Based on that, she had pathologically confirmed stage IV disease. She was without evidence of disease following the surgery. 3. In February a surveillance CT scan showed a new pulmonary nodule near the left apex, consistent with metastasis. PET/CT showed low-grade FDG avidity in the nodule, but no other areas of abnormal uptake, consistent with a single site of metastatic involvement. She was then treated with SBRT which she completed in March 2015 to a total dose of 4800 cGy. There was evidence of positive treatment response on follow-up PET/CT in June 2015. 4. Her surveillance CT scans in March 2017 showed an enlarging pulmonary nodule in the lingula, suspicious for metastasis. She was referred to Dr. Osman. She underwent SBRT to the lingula lesion, completed on 05/06/2017 to a total dose of 4800 cGy. 5. She also is known to have multi nodular goiter. This includes two dominant nodules on the left side, the largest in the left inferior lobe measuring 2.[address] and 2.5 cm by ultrasound. It has appeared stable on the most recent studies, and a previous FNA done prior to the nephrectomy was benign. Her other medical illnesses include: 6. Hypertension. 7. Type II diabetes. 8. Chronic kidney disease. 9. GERD. 10. Anxiety/depression. She has remained on observation/expectant management following completion of the SBRT in April 2017. Her most recent CT scans, from 09/11/2018, showed findings which were felt to be suspicious for recurrence at the site of the tumor nodule in the left lung apex. Those changes, though, were rather subtle, and there was no other evidence of disease progression. On further evaluation with restaging PET/CT in December 2018, the density at the left apex was FDG negative and most likely scarring. There were no areas of abnormal uptake on that study. Within the past year she had become mildly anemic again. Her serum iron studies were consistent with iron deficiency, but her anemia continued to worsen despite oral iron supplementation. She was then given parenteral iron replacement with infusions of Injectafer in September and in October 2019. During follow-up her hemoglobin/hematocrit had initially shown some increase, but the had subsequently declined. As of her follow-up visit in April 2020 her serum iron studies were again suggestive of iron deficiency, and she did receive additional parenteral iron replacement with 2 infusions of Injectafer. She tolerated it well, but there was just a slight increase in her hemoglobin/hematocrit levels. During followup she has remained moderately anemic and she has had very significantly elevated sed rate. Together those findings have been very worrisome for recurrence/progression of the renal cell cancer, though there has been no evidence of recurrence by CT or by PET/CT. There has, however, been evidence for persistent small bowel intussusception. Plan: At least for now she remains on observation/expectant management for the renal cell cancer. As she has had persistent small bowel intussusception noted on her imaging studies, I will now arrange for surgical consultation. I will continue to monitor her blood counts monthly. Ultimately, she may need to undergo bone marrow aspiration/biopsy for evaluation of the anemia. Signed By: Diogenes Ruiz M.D. <<Signature on File>>
== END 2020-07-31 11:23 | disposition home or self-care (01) ==
LOC: ONCMED 11:25
PROVIDERS: PCP Internal Medicine; Visit Provider Internal Medicine Medical Oncology
DX: Z08 Encounter for follow-up examination after completed treatment for malignant neoplasm (principal); Z85.528 Personal history of other malignant neoplasm of kidney; K56.1 Intussusception; D64.9 Anemia, unspecified; R70.0 Elevated erythrocyte sedimentation rate; Z90.5 Acquired absence of kidney; E11.22 Type 2 diabetes mellitus with diabetic chronic kidney disease; I12.9 Hypertensive chronic kidney disease with stage 1 through stage 4 chronic kidney disease, or unspecified chronic kidney disease; N18.9 Chronic kidney disease, unspecified; K21.9 Gastro-esophageal reflux disease without esophagitis; F41.8 Other specified anxiety disorders; Z79.891 Long term (current) use of opiate analgesic
CPT/HCPCS: 80053; 83540; 83550; 83615; 85025; 99214

== ENCOUNTER 2020-08-28 07:25 | Outpatient (CLI) | payer MEDICARE, OTHER, SELFPAY ==
[2020-08-28 08:53] LABS: Basophils % 0.4 %; Eosinophils # 0.6 10^3/uL (0.0-0.8); Hematocrit 29.2 % (37.0-47.0); Hemoglobin 8.5 g/dL (11.5-15.3); Lymphocytes % 9.4 %; Mean Corpuscular HGB Conc 29.1 g/dL (30.0-36.0); Mean Corpuscular Hemoglobin 26.5 pg (28.0-34.0); Mean Platelet Volume 10.9 fL (7.4-10.4); Monocytes # 0.7 10^3/uL (0.2-0.9); Monocytes % 6.2 %; Neutrophils # 8.12 10^3/uL (1.8-7.7); Neutrophils % 77.4 %; Nucleated Red Blood Cells % 0 %; Platelet Count 507 10^3/cmm (130-400); Red Blood Count 3.21 10^6/uL (4.1-5.3); White Blood Count 10.5 10^3/uL (4.0-10.0)
== END 2020-08-28 07:26 | disposition home or self-care (01) ==
LOC: ONCMED 14:47
PROVIDERS: PCP Internal Medicine; Visit Provider Internal Medicine Medical Oncology
DX: C64.1 Malignant neoplasm of right kidney, except renal pelvis (principal); C78.02 Secondary malignant neoplasm of left lung; C78.01 Secondary malignant neoplasm of right lung; N18.30 Chronic kidney disease, stage 3 unspecified; D64.9 Anemia, unspecified
CPT/HCPCS: 85025

== ENCOUNTER 2020-08-29 10:02 | Outpatient (CLI) | payer MEDICARE, OTHER, SELFPAY ==
--- NOTE | 2020-08-29 10:00 | FL_ITS ---
WS: [id number] SMALL BOWEL EXAMINATION CLINICAL INFORMATION: K59.00 - Constipation, unspecified COMPARISON: Comparison multiple prior CT examinations and PET/CT 12/23/2018 and 07/12/2020 FINDINGS: Multiple prior CTs and PET CT's were reviewed. Previously described small bowel intussuscep tion with focal lead point in the lower mid abdomen was seen on the prior recent CT examinations and PET/CT. Intense FDG uptake on the most recent PET/CT. Intussusception seen today on the small bowel e xamination with distention of a loop of small bowel in the midabdomen. No evidence of high-grade obst ruction in this area. Small bowel loop dilated up to 7.5 cm and extends over 20 cm. Evidence of tethe ring and traction of adjacent small bowel loops Considering intense FDG uptake findings are suspiciou s for small bowel neoplasm. Initial abdomen radiograph: Normal bowel gas pattern. No abnormal calcification. Lumbar scoliosis con vex left. Cholecystectomy clips. Surgical clips upper abdomen and right lower quadrant. Contrast material: 50/50 thin barium sulfate suspension. Transit time: 60 Minutes (normal = 30 - 240 minutes) Normal transit time. No evidence of high-grade stricture. The terminal ileum is normal. Normal ileoce nerissa valve. FLUOROSCOPY TIME: 2.3 minutes FL/FL small bowel series* [id number] IMPRESSION: 1. Normal small bowel transit time 60 minutes. 2. Previously described intussusception corresponds to a dilated loop of small bowel today measuring 7.4 cm in transverse dimension and extending over approx imately 20 cm. This bowel loop demonstrates intense FDG uptake on the recent PE T/CT July 12, 2020 suspicious for small bowel neoplasm. Some evidence of te thering of adjacent small bowel on today's examination. Recommend further evalu ation for malignancy. 3. Normal cecum and terminal ileum. 4. No other significant findings.
[2020-08-29] MEDS: diatrizoate meglumine 30 mL Sol PO (11:52)
== END 2020-08-29 10:03 | disposition home or self-care (01) ==
LOC: RAD 10:08
PROVIDERS: PCP Internal Medicine; Visit Provider Surgery
DX: K59.00 Constipation, unspecified (principal)
CPT/HCPCS: 74250

== ENCOUNTER → 2020-09-15 10:53 | Outpatient (BNVA) | payer MEDICARE, OTHER, SELFPAY | PROVIDERS: PCP Internal Medicine; Visit Provider Internal Medicine | DX: E11.22 Type 2 diabetes mellitus with diabetic chronic kidney disease (principal); N18.4 Chronic kidney disease, stage 4 (severe); E11.42 Type 2 diabetes mellitus with diabetic polyneuropathy; E66.9 Obesity, unspecified | CPT/HCPCS: 99215 ==

== ENCOUNTER → 2020-10-03 12:16 | Outpatient (BNVA) | payer MEDICARE, OTHER, SELFPAY | PROVIDERS: PCP Internal Medicine; Visit Provider Surgery | DX: Z01.812 Encounter for preprocedural laboratory examination (principal); R10.9 Unspecified abdominal pain | CPT/HCPCS: 87635 ==

== ENCOUNTER 2020-10-07 14:13 | Inpatient (IN) | payer MEDICARE, OTHER, SELFPAY ==
[2020-10-03 09:24] VITALS: BMI 33.8
--- NOTE | 2020-10-03 09:33 | ECG_ITS ---
[facility] Test Date: 2020-10-03 Pat Name: Angelika Sanchez Department: Room: Gender: Female [employer]: : 1945 Requested By: Karis Khalil Order Number: [id number] Danii MD: Basilio Herrmann M.D. Measurements Intervals [place] Rate: 61 P: 40 DE: 142 QRS: -9 QRSD: 88 T: -5 QT: 360 QTc: 363 Interpretive Statements SINUS RHYTHM LEFT VENTRICULAR HYPERTROPHY AND ST-T CHANGE [VOLTAGE CRITERIA PLUS ST/T ABNORMALITY] Poor R wave progression No previous ECG available for comparison Electronically Signed On 10-03-2020 16:13:23 PRODUCT SUPPORT REPRESENTATIVE by Basilio Herrmann M.D. [id number]
--- NOTE | 2020-10-03 10:08 | ANES.PREANE2 ---
Pre-Anesthetic Assessment Pre-Anesthetic Assessment: Height/Weight: Height 1.57 m Weight 83.915 kg Preop Diagnosis: Small bowel intussusception Proposed Procedure: Operation Date: 10/07/20 09:30 Proposed Procedures p Laparoscopy possible laparotomy(Not Applicable) - Waldo Cagle MD s Small Bowel Resection possible ostomy(Not Applicable) - Waldo Cagle MD Familial anesthetic complications: None Social: Social History: No alcohol and No tobacco Exam: Pre-Anes Outpt Exam: alert, oriented x 3, clear to auscultation bilaterally and regular rate & rhythm Airway: Cervical ROM: WNL MP: 2 Dentition: Other (missing) Pulmonary: Comments: 8 years ago, hx metastatic lung cancer from kidney - s/p surgical removal of 3 lesions on R and has had radiation on L lung. MENA, but stable and unchanged for years CV/HEM: CV/HEM: Anemia and HTN GI: GI: GERD Metabolic: Metabolic: DM Anesthetic Plan: ASA status: 3 Anesthesia: General Risk of > 500 ml blood loss (7ml/kg in children): No PFSH Anesthesia PFSH: Medical History Achilles bursitis or tendinitis Anemia Anxiety disorder Congenital pes planus of right foot Depression Gastroesophageal reflux HTN (hypertension) Internal derangement of right knee Renal cell carcinoma of right kidney Secondary renal cell carcinoma of right lung Tear of medial meniscus of right knee Thoracoscopic surgical procedure converted to open procedure with excision of 2 metastatic renal cell carcinoma nodules and one carcinoid ? Surgical History H/O colonoscopy 10 yrs or more ago History of lobectomy of lung History of nephrectomy Family History Family/Other Cancer Denies family history of Diabetes CAD (coronary artery disease) Clotting disorder Dementia Hyperlipidemia Psychiatric illness Chronic kidney disease (CKD) Suicide Anesthesia complication Bleeding disorder Family history of premature coronary artery disease Lung disease Hypertension Stroke Social History Smoking and tobacco status: former smoker Second hand smoke exposure: No Alcohol intake: current Alcohol intake frequency: holidays/special occasions only Alcohol type: hard liquor Household members: spouse Marital status: Current occupational status: retired History of recent travel: No Data Anesthesia CBC & Chem 7: 10/03/20 10:00 10/03/20 10:00 Cardiac Studies: No Data to Display
[2020-10-03 10:12] LABS: Basophils # 0.1 10^3/uL (0.0-0.1); Basophils % 0.8 %; Eosinophils # 0.3 10^3/uL (0.0-0.8); Eosinophils % 3.5 %; Hematocrit 25.7 % (37.0-47.0); Hemoglobin 7.3 g/dL (11.5-15.3); Lymphocytes # 0.9 10^3/uL (0.8-4.8); Lymphocytes % 12.4 %; Mean Corpuscular HGB Conc 28.4 g/dL (30.0-36.0); Mean Corpuscular Hemoglobin 25.5 pg (28.0-34.0); Mean Corpuscular Volume 89.9 fL (81-99); Mean Platelet Volume 10.3 fL (7.4-10.4); Monocytes # 0.5 10^3/uL (0.2-0.9); Monocytes % 6.5 %; Neutrophils % 76.5 %; Nucleated Red Blood Cells % 0 %; Platelet Count 468 10^3/cmm (130-400); Red Blood Count 2.86 10^6/uL (4.1-5.3); White Blood Count 7.3 10^3/uL (4.0-10.0)
[2020-10-03 10:29] LABS: Anion Gap 14.1 (5-19); Blood Urea Nitrogen 25 mg/dL (8-23); Calcium 9.1 mg/dL (8.5-10.5); Carbon Dioxide 24 mmol/L (22-29); Chloride 102 mmol/L (98-107); Glucose 120 mg/dL (65-115); Osmolality Calculated 286 mOsm/kg (285-295); Potassium 5.1 mmol/L (3.5-5.1); Sodium 135 mmol/L (136-145)
[2020-10-07] VITALS (30 sets, daily range): BP systolic 111–171; BP diastolic 47–85; PULSE 62–77; RESP 12–19; TEMP 36.4–37.1; O2SAT 95–100
--- NOTE | 2020-10-07 08:09 | P.ANESUD_ITS ---
Pre-Anesthetic Update Pre-Anesthetic Assessment: Date of Surgery/Procedure: 10/07/20 Preop Lacy gnosis: Small bowel intussusception Proposed Procedure: Operation Date: 10/07/20 09:00 Proposed Procedures p Laparoscopy possible laparotomy(Not Applicable) - Waldo Cagle MD s Small Bowel Resection possible ostomy(Not Applicable) - Waldo Cagle MD Any changes to Pre-Anesthetic Assessment?: No Vitals: Temperature 98.5 F 10/07/20 08:03 Temperature Source Temporal Artery S can 10/07/20 08:03 Pulse Rate 77 10/07/20 08:03 Respiratory Rate 18 10/07/20 08:03 Blood Pressure 158/80 10/07/20 08:03 Blood Pressure Cassie n 106 10/07/20 08:03 Pulse Oximetry 98 10/07/20 08:03 Oxygen Delivery Me thod 10/07/20 08:03 Exam: Pre-Anes Outpt Exam: alert, oriented x 3, clear to auscultation bilaterally and regular rate & rhythm Other Pertinent Information: Other Pertinent Information: Chronic anemia plan to T&C. Cardiac Studies: No Data to Display
[2020-10-07 08:18] LABS: Glucose Point of Care 117 mg/dL (70-110)
[2020-10-07] MEDS: heparin 5,000 unit/mL INJ 1 mL 3000 UNIT SUBCUT (08:33)
[2020-10-07] MEDS: sodium chloride 0.9% 1,000 ML 30 ML IV (08:38)
--- NOTE | 2020-10-07 08:49 | P.HP_ITS ---
Same Day Surgery H&P Indication for Procedure/HPI DATE OF PROCEDURE: October 07, 2020 CHIEF COMPLAINT/INDICATIONFOR SURGICAL PROCEDURE: Abdominal pain PREOP DIAGNOSIS: Small bowel intussusception PLANNED PROCEDRUE: Operation Date: 10/07/20 09:00 Proposed Procedures p Laparoscopy possible laparotomy(Not Applicable) - Waldo Cagle MD s Small Bowel Resection possible ostomy(Not Applicable) - Waldo Cagle MD This is a pleasant 75 years old female patient with history of obesity. Presents to my practice with right-sided abdominal pain that has been going on for quite some time associated with gas and constipation. Patient reports to me history of kidney cancer and right nephrectomy was done via right upper incision of the abdomen. Ports that her last colonoscopy was 10 years ago and she is under going a series of surveillance CT scan of the abdomen and pelvis per oncology service. And back in April and CT scan of the abdomen pelvis was done that showed incidental finding of intussusception. Of the small bowel CT scan of the abdomen pelvis April 2020 1. Stable LEFT upper lobe irregular opacification over multiple prior examinations. 2. Stable postsurgical changes in the RIGHT upper and RIGHT middle lobes. 3. Resolved RIGHT basilar nodule as described on 01/25/2020. 4. Prior RIGHT nephrectomy. 5. No evidence for metastatic disease or interval change within the chest, abdomen or pelvis. 6. Hepatic steatosis. 7. Transient intussusception small bowel LEFT abdomen. If intussusception persist lead point mass should be considered as a possible etiology. Patient denies any nausea vomiting fevers or chills and she is referred to me for further evaluation and potential intervention Interim history 10/07/2020 Patient comes today for planned diagnostic laparoscopy, possible laparotomy with possible bowel resection possible colostomy. Small bowel follow-through was requested and showed: 1. Normal small bowel transit time 60 minutes. 2. Previously described intussusception corresponds to a dilated loop of small bowel today measuring 7.4 cm in transverse dimension and extending over approximately 20 cm. This bowel loop demonstrates intense FDG uptake on the recent PET/CT July 12, 2020 suspicious for small bowel neoplasm. Some evidence of tethering of adjacent small bowel on today's examination. Recommend further evaluation for malignancy. 3. Normal cecum and terminal ileum. 4. No other significant findings. Patient comes today escorted by her daughter and the procedure was well explained for them. ROS All systems have been reviewed negative except as per the above or per problem list Medications/Allergies* Home Medications Medication Instructions Recorded Confirmed Type amlodipine 10 mg tablet 10 mg PO BEDTIME 10/18/19 10/07/20 History hydrocodone 5 mg-acetaminophen 325 1 tab PO BID PRN 10/18/19 10/07/20 History mg tablet ropinirole 0.25 mg tablet 0.25 mg PO BEDTIME 10/18/19 10/07/20 History trazodone 100 mg tablet 100 mg PO BEDTIME 10/18/19 10/07/20 History pantoprazole 40 mg tablet,delayed 40 mg PO DAILY 03/31/20 10/07/20 History release insulin glargine 100 unit/mL (3 16 unit SUBCUT DAILY ml 09/23/20 10/07/20 History mL) subcutaneous pen losartan 100 mg PO DAILY 10/03/20 10/07/20 History Allergies/Adverse Reactions Allergy/AdvReac Type Severity Reaction Status Date / Time gentamicin Allergy Unknown Verified 10/07/20 08:50 streptomycin Allergy algy-rash Verified 10/07/20 08:50 Current Medications: Generic Name Dose Route Start Last Admin Trade Name Freq PRN Reason Stop Dose Admin Sodium Chloride 1,000 mls @ 30 mls/hr 10/07/20 07:30 10/07/20 08:38 Sodium Chloride 0.9% IV 10/08/20 07:29 30 mls/hr .Q24H ANAYELI Administration Pertinent History/Comorbid Conditions* Medical History (Updated 08/15/20 @ 17:29 by Waldo Cagle MD) Achilles bursitis or tendinitis Anemia Anxiety disorder Congenital pes planus of right foot Depression Gastroesophageal reflux HTN (hypertension) Internal derangement of right knee Renal cell carcinoma of right kidney Secondary renal cell carcinoma of right lung Tear of medial meniscus of right knee Thoracoscopic surgical procedure converted to open procedure with excision of 2 metastatic renal cell carcinoma nodules and one carcinoid ? Surgical History (Updated 09/15/20 @ 22:10 by Michael Pollock MD) H/O colonoscopy 10 yrs or more ago History of lobectomy of lung History of nephrectomy Family History (Updated 10/18/19 @ 14:35 by Corinna Cannon LPN) Cancer Family/Other Denies family history of Diabetes CAD (coronary artery disease) Clotting disorder Dementia Hyperlipidemia Psychiatric illness Chronic kidney disease (CKD) Suicide Anesthesia complication Bleeding disorder Family history of premature coronary artery disease Lung disease Hypertension Stroke Social History Smoking and tobacco status: former smoker Second hand smoke exposure: No Alcohol intake: current Alcohol intake frequency: holidays/special occasions only Alcohol type: hard liquor Household members: spouse Marital status: Current occupational status: retired History of recent travel: No Pertinent Exam Findings alert, oriented x 3, clear to auscultation bilaterally, regular rate & rhythm and procedure specific exam findings (Abdominal examination nontender soft nondistended, obese) Recommendations Surgery/Procedure today (Diagnostic laparoscopy possible laparotomy, possible bowel resection possible colostomy) Other Plans: After thorough history physical examination and reviewing the chart and images with my personal interpretation and discussing the case with Dr. Ruiz, I did prison classification counselor the patient for diagnostic laparoscopy possible laparotomy with possible bowel resection possible colostomy. Patient understands the potential need for hospitalization after surgery until she resumes her bowel functions. Informed consent per chart, indications, risks, benefits and alternatives all discussed with the patient and her daughter. Patient agreed to proceed accordingly. Giving the fact that the patient does have chronic anemia after discussing the case further with anesthesia Dr. Espino elected to have a type and cross on board in case we needed it for potential blood transfusio.n Assurance and education All questions have been answered and all concerns have been addressed to patient's satisfaction. Coding Level of Care Code Acute Personnel Supervisor for Landy Summers
[2020-10-07] MEDS: ampicillin-sulbactam 3 GM in sodium chloride 0.9% (plus) 50 ML IV ×3 (09:45→22:07)
[2020-10-07] MEDS: lidocaine 2% INJ 20 mL INJECTION (09:59)
--- NOTE | 2020-10-07 12:02 | P.OP_ITS ---
Operative Report Date of procedure: October 07, 2020 Pre-op Diagnosis: Small bowel intussusception Post-op Diagnosis: Small bowel intussusception with a mass occupying proximal jejunal loop about 15 cm in length and 5 cm in diameter Post-op Findings: Intussusception 22.5 cm from ligament of Treitz including MS of the small bowel After relief of the intussusception the mass is located about 40 cm from ligament of Treitz Procedure Done: Diagnostic laparoscopy,mini laparotomy with Small bowel resection and [id number]-[id number] anastomosis Uojg-al-[id number] small bowel anastomosis Specimens removed/disposition: Small bowel mass occupying proximal jejunal loop Staple line Surgeon: Waldo Cagle Hand Method Lasting Machine Operator: Surgical techs Pieter Salas and assembler surgical garment student Daisha Circulating nurse Farzana Hernandes Anesthesia: General (burning plant operator [place] and Alexa) Estimated blood loss (mL): 20 IV fluids (mL): 800 Urine output (mL): 100 Complications: No immediate complications and there was no indication for blood transfusion Condition: stable Disposition: floor Procedure: After identifying the patient in the holding area, was taken to the operating room, placed in supine position, intubated by anesthesia, prophylactic IV antibiotics were given per protocol. Arana catheter was inserted by the circulating nurse revealing clear urine,timeout was done verifying the patient's name/date of /planned procedure and destination after the procedure, all were in agreement. Both arms were tucked and shoulder supports were in place and a footboard as well. All pressure points were padded and secured by me and the staff/I asked anesthesia to tilt the table [id number] to make sure that the patient secured to the bed and it was the case. Prep and drape of the abdomen was done under the usual sterile technique, a supr aumbilical skin incision was created, followed by dissection of the subcutaneous layer until the fascia is reached then an opening was created to reach the abdominal cavity safely followed by a Coyle trocar technique and two stay sutures were applied to the fascia, and safe entrance to the abdominal cavity was achieved, low flow followed by high flow of CO2 gas, started by 0 scope 10 mm, no injuries were detected, followed by that a 30? millimeter scope was inserted. A longer 5 mm trocar was inserted under direct vision at the right upper quadrant, followed by a left lower quadrant, and another 5 mm trocar was inserted at the left lower quad Adhesions were identified towards the right upper quadrant likely from previous open nephrectomy but that was away from the actual procedure yet adhesions were involving the omentum appreciated at the right lower quadrant and a Voyant 5 mm energy device was used to take adhesions down under direct visualization, also left upper quadrant adhesions were identified between the omentum and the lateral abdominal wall that some were taken down allowing the omentum to be lifted up as the patient was tilted in headdown position, ligament of Treitz was identified, and about 20 to 25 cm from the ligament the intussusception mass was appreciated showing relatively collapsed proximal bowel and dilated distal bowel of the jejunum. At this point I elected gently to milk the intussusception proximal segment and I was able to achieve about 15 cm with viable bowel which made a total of about 40 cm from the ligament of Treitz, there was no other pathological changes appreciated in the abdominal cavity in the form of ascites or peritoneal deposits.At that point I decided to create the skin incision and extend the supraumbilical cephalad and caudad to deliver the intussusception under direct visualization after placement of GelPort For skin protection and the trochars were removed. After delivering of the intussusception occluding the mass that measured about 15 x 5 cm.I created windows in the mesentery, at least 5 cm of healthy segment of small bowel were taken as safety margin proximal and distal, a GI 75 mm blue load was fired ?2, healthy proximal and distal ends were obtained, the mesentery had a high ligation using energy device. The healthy segments of the small bowel were brought [id number], 3-0 silk stay sutures were applied at 2 points, proximal and distal,and enterotomies were created to allow the 2 limbs of NADIA 75 blue load stapler to create a reyq-fr-xenn tension-free and functional anastomosis, both enterotomy sites were held by Allis clamp and a transverse GI blue load was fired and the staple line was passed for the circulating nurse as well as the appreciated small bowel segment including mass with sutures marked proximal. Multiple 3-0 silk sutures were applied for appropriate closure of the mesenteric rent without compromising the blood supply and also few sutures were applied for appropriate hemostasis of the healthy staple line also multiple 3-0 silk were placed as an interrupted form as crutch sutures. Patent and wide anastomosis was created of viable bowel.At this point I reintroduced the bowel back to the abdominal cavity.And the GelPort was capped to resume insufflation of the abdominal cavity. At this point I did run the bowel the ligament of Treitz to the ileocecal junction and remaining of the bowel were normal looking and viable, there was no pathological findings appreciated of the other viscera. Suction and irrigation was done with the normal warm saline, continued to have viable bowel, gas was allowed to escape all trocars were taken out under direct visualization. The mini laparotomy site was closed using continuous loop PDS sutures under direct vision, allowed by copious and thorough irrigation of the subcutaneous layer that was then closed by 2-0 Vicryl followed by skin pepe to the incision as well as the trocar incision sites. Lidocaine 2% was injected. Followed by dry dressing and abdominal binder. I elected to keep the Arana catheter at the end of the procedure Patient tolerated the procedure well and got extubated, was taken to the recovery area in stable condition Count of instruments and sponges were completed at the end of the procedure I was present for the whole entire procedure
--- NOTE | 2020-10-07 12:28 | SUR.PHASEI ---
1221 PT CONTINUES TO SLEEP MOSTLY, AWAKES TO VOICE ORAL AIRWAY OUT PT DENIES PAIN WARM BLANKETS TO PT, VSS ABD BINDER IN PLACE.
[2020-10-07] MEDS: fentaNYL 50 mcg/mL INJ 2mL IVP (12:49)
[2020-10-07] MEDS: sodium chloride 0.9% 1,000 ML 100 ML IV ×2 (12:53→16:49)
--- NOTE | 2020-10-07 12:56 | SUR.PHASEI ---
1249 PT MORE ALERT TAKING OCC ICE CHIPS RATES PAIN AT 8 SEE PAIN MED GIVEN VSS ABD D/I CALLEJAS PATENT OF CLEAR YELLOW URINE TO TUBING AND BAG, STATLOCK TO RT THIGH. PT SATS 99% ON 3LNC
--- NOTE | 2020-10-07 12:59 | SUR.PHASEI ---
PT AWAKES EASILY, VSS IV PATENT, SEE NEW IV UP ORDERED.
[2020-10-07 13:19] LABS: Glucose Point of Care 134 mg/dL (70-110)
--- NOTE | 2020-10-07 13:21 | ANE.PACU2 ---
Inpatient post-anesthesia follow up: Airway intact: Yes Vital signs: Temperature 98.5 F Pulse Rate 70 Respiratory Rate 13 Blood Pressure 135/57 Pulse Oximetry 95 Oxygen Delivery Me thod Nasal Cannula Oxygen Flow Rate 3 Fraction of Inspir ed Oxygen Hydration adequate: Yes Nausea and vomiting: No Pain level: 2 Mental status: Baseline
--- NOTE | 2020-10-07 14:13 | SUR.PHASEI ---
PT SLEEPS WITH NO COMPLAINTS , CALLING REPORT TO FLOOR.
[2020-10-07] MEDS: morphine 4 mg/mL SDV 1 mL 2 MG IVP ×2 (16:11→20:39)
[2020-10-07] MEDS: ondansetron 2 mg/ML SDV 2 mL 4 MG IVP (16:12)
[2020-10-07 18:36] LABS: Glucose Point of Care 111 mg/dL (70-110)
--- NOTE | 2020-10-07 19:41 | PM.CONSULT ---
Providers/Reason For Consult Consulting Physican/Specialty*: Internal medicine Reason for Consult*: Diabetes and hypertension management Attending Physician: Waldo Cagle MD Primary Care Provider: Elie Harry MD History of Present Illness History of Present Illness Angelika Sanchez is a 75 year old female with intussusception. She was admitted today for planned diagnostic lap upper scopic he with bowel resection. He was able to remove the the small bowel mass that was seen on small bowel follow-through. Dr. Cagle requests internal medicine consult for diabetes mellitus management and hypertension. Patient reports long history of approximately 5 years of known elevated blood sugars. She was instructed to obtain optimal blood sugar control prior to the surgery and was placed on Lantus 16 units every morning. She reports that she has had good control although she cannot recite any numbers. Patient reports that she has high blood pressure and she takes medication she remembers losartan but forgot to tell me about amlodipine. Otherwise patient has restless leg syndrome she says the medication for that does not help and she takes a three-quarter shot of bourbon which improves her symptoms and allows her to sleep. I also see that she is on an antidepressant and a PPI for GERD. Review of Systems General: Reports: 10 or more systems reviewed and unremarkable except in HPI and below Card: Reports: edema (Ankle edema at night) Neuro: Reports: headache(s) (She reports history of headaches) Psych: Reports: depression Meds/Allergies Home Medications and Allergies Home Medications Medication Instructions Recorded Confirmed Last Taken Type amlodipine 10 mg tablet 10 mg PO BEDTIME 10/18/19 10/07/20 10/06/20 22:00 History hydrocodone 5 mg-acetaminophen 325 1 tab PO BID PRN 10/18/19 10/07/20 10/06/20 22:00 History mg tablet ropinirole 0.25 mg tablet 0.25 mg PO BEDTIME 10/18/19 10/07/20 10/06/20 22:00 History trazodone 100 mg tablet 100 mg PO BEDTIME 10/18/19 10/07/20 10/06/20 22:00 History venlafaxine 150 mg 150 mg PO DAILY #90 cap 02/21/20 10/07/20 10/06/20 07:00 Rx capsule,extended release 24 hr blood-glucose meter #1 each 03/31/20 09/15/20 Unknown Rx pantoprazole 40 mg tablet,delayed 40 mg PO DAILY 03/31/20 10/07/20 10/06/20 07:00 History release blood sugar diagnostic #100 each 04/10/20 09/15/20 Unknown Rx blood sugar diagnostic #200 ea 09/11/20 09/15/20 Unknown Rx lancets 30 gauge #200 ea 09/11/20 09/15/20 Unknown Rx insulin glargine 100 unit/mL (3 16 unit SUBCUT DAILY ml 09/23/20 10/07/20 10/06/20 07:00 History mL) subcutaneous pen losartan 100 mg PO DAILY 10/03/20 10/07/20 10/06/20 07:00 History Allergies Allergy/AdvReac Type Severity Reaction Status Date / Time gentamicin Allergy Unknown Verified 10/07/20 08:50 streptomycin Allergy algy-rash Verified 10/07/20 08:50 Current Medications Current Medications Generic Name Dose Route Start Last Admin Trade Name Freq PRN Reason Stop Dose Admin Sodium Chloride 1,000 mls @ 100 mls/hr 10/07/20 12:15 10/07/20 16:49 Sodium Chloride 0.9% IV 100 mls/hr .Q10H ANAYELI Administration Ampicillin Sodium/Sulbactam 50 mls @ 100 mls/hr 10/07/20 15:30 10/07/20 16:49 Sodium 3 gm/ Sodium Chloride IV 100 mls/hr Q6H ANAYELI Administration Protocol Insulin Aspart 0 unit 10/07/20 18:00 10/07/20 18:34 Insulin Aspart 100 Unit/1 Ml SUBCUT Not Given WM&BEDTIME ANAYELI Protocol Morphine Sulfate 2 mg 10/07/20 12:05 10/07/20 16:11 Morphine 4 Mg/Ml Sdv 1 Ml IVP 2 mg Q2H PRN Administration SEVERE PAIN Ondansetron HCl 4 mg 10/07/20 14:59 10/07/20 16:12 Ondansetron 2 Mg/Ml Sdv 2 Ml IVP 4 mg Q6H PRN Administration NAUSEA AND VOMITING PFSH Acute PFSH: Medical History Achilles bursitis or tendinitis Anemia Anxiety disorder Congenital pes planus of right foot Depression Gastroesophageal reflux HTN (hypertension) Internal derangement of right knee Renal cell carcinoma of right kidney Secondary renal cell carcinoma of right lung Tear of medial meniscus of right knee Thoracoscopic surgical procedure converted to open procedure with excision of 2 metastatic renal cell carcinoma nodules and one carcinoid ? Surgical History H/O colonoscopy 10 yrs or more ago History of lobectomy of lung History of nephrectomy Family History Family/Other Cancer Denies family history of Diabetes CAD (coronary artery disease) Clotting disorder Dementia Hyperlipidemia Psychiatric illness Chronic kidney disease (CKD) Suicide Anesthesia complication Bleeding disorder Family history of premature coronary artery disease Lung disease Hypertension Stroke Social History Smoking and tobacco status: former smoker Second hand smoke exposure: No Alcohol intake: current Alcohol intake frequency: holidays/special occasions only Alcohol type: hard liquor Household members: spouse Marital status: Current occupational status: retired History of recent travel: No Vitals/I&O/Wt Last Vital Signs Temp 98 F 10/07/20 19:16 Pulse 75 10/07/20 19:16 Resp 18 10/07/20 19:16 BP 144/56 10/07/20 19:16 Pulse Ox 98 10/07/20 19:16 10/07/20 10/07/20 10/07/20 06:59 14:59 22:59 Intake Total 1050 / 1050 393.333 / 1443.333 Output Total 220 / 220 450 / 670 Balance 830 / 830 -56.667 / 773.333 Physical Exam Const: COMMON NORMALS: no acute distress and patient oriented x3 GENERAL APPEARANCE: cooperative and comfortable NUTRITIONAL APPEARANCE: obese ORIENTATION/CONSCIOUSNESS: Yes awake, Yes oriented to person, Yes oriented to place and Yes oriented to time HENMT: COMMON NORMALS: normocephalic, hearing grossly normal bilaterally and Normal nasal mucous membranes and turbinates present HEAD & SCALP: normocephalic NOSE: Normal nasal mucous membranes and turbinates present Eye: COMMON NORMALS: Equal, round and reactive pupils present and EOMs intact bilaterally PUPIL: Yes Equal, round and reactive pupils present Neck/C-Spine: COMMON NORMALS: full ROM, no lymphadenopathy, supple, no JVD, Thyroid normal and No carotid bruits THYROID: Thyroid normal Lymph: LYMPHATIC: no lymphadenopathy noted Chest: COMMONS NORMALS: normal inspection of the chest and normal palpation of entire chest wall Resp: COMMON NORMALS: normal respiratory effort and clear to auscultation bilaterally AUSCULTATION: clear to auscultation bilaterally Cardio: COMMON NORMALS: no JVD, regular rate, regular rhythm, S1 normal heart sound present and S2 normal heart sound present RATE: regular rate RHYTHM: regular rhythm HEART SOUNDS: S1 normal heart sound present and S2 normal heart sound present GI: INSPECTION: Yes other (Patient is just hours postop completed inspection only. ) OTHER: Abdominal binder in place did not remove. : COMMON NORMALS: Yes no CVA tenderness BLADDER/KIDNEY EXAM: Yes no CVA tenderness Back/Pelvis: COMMON NORMALS: no CVA tenderness and thoracic and lumbar spine normal to inspection Extremity: COMMON NORMALS: normal to inspection, capillary refill normal, no calf tenderness and no pedal edema Neuro: COMMON NORMALS: patient oriented x3 and CN's II-XII intact bilaterally SENSORIUM/ORIENTATION: Yes oriented to person, Yes oriented to place and Yes oriented to time Psych: COMMON NORMALS: mental status grossly normal, Normal thought process present and speech normal ATTITUDE: Yes calm ACTIVITY/MOTOR BEHAVIOR: Yes appropriate eye contact SPEECH: Yes normal speech MOOD & AFFECT: Yes euthymic mood THOUGHT PROCESS: Normal thought process present Skin: COMMON NORMALS: no rashes or lesions noted GENERAL SKIN EXAM: no rashes or lesions noted Urinary Catheter Management^: Arana: Cath Placed During This Visit: yes Urethral Indwelling: Yes Reason for Continuing Indwelling Catheter: Perioperative Use in Selected Surgeries Urinary Catheter Date of Insertion: 10/07/20 Urinary Catheter Time of Insertion: 09:20 A&P Assessment and plan (1) Obesity (BMI 30-39.9): Status: Acute (2) DM type 2 (diabetes mellitus, type 2): Patient is placed on Accu-Cheks q. meal and nightly or every 6 hours since patient is n.p.o. She will be placed on low-dose sliding scale insulin. Status: Acute Qualifiers: Diabetes mellitus fdc insulin use: without intermediate teacher use Diabetes mellitus complication status: with neurologic complications Diabetes mellitus complication detail: with polyneuropathy Qualified Code(s): E11.42 - Type 2 diabetes mellitus with diabetic polyneuropathy (3) CKD (chronic kidney disease) stage 4, GFR 15-29 ml/min: Patient currently on IV fluids will monitor renal function. Status: Acute (4) Gastroesophageal reflux: Patient on Protonix 40 mg every morning. Will hold at this time. I suspect she will not have much heartburn during n.p.o. status. Status: Acute (5) HTN (hypertension): Blood pressure elevated but stable at this time. I ordered metoprolol 5 mg every 4 hours as needed blood pressure greater than 160/90. Could also consider the use of hydralazine. Status: Acute Coding Level of Care Code Acute Pharmacy Technician Infusion for Chg Fwd Diagnoses Obesity (BMI 30-39.9) E66.9 DM type 2 (diabetes mellitus, type 2) E11.42 Diabetes mellitus intermediate teacher insulin use: without fdc use Diabetes mellitus complication status: with neurologic complications Diabetes mellitus complication detail: with polyneuropathy CKD (chronic kidney disease) stage 4, GFR 15-29 ml/min N18.4 Gastroesophageal reflux K21.9 HTN (hypertension) I10
[2020-10-07 21:15] LABS: Glucose Point of Care 91 mg/dL (70-110)
[2020-10-08] VITALS (13 sets, daily range): BP systolic 113–192; BP diastolic 57–78; PULSE 69–79; RESP 16–18; TEMP 36.4–37.6; O2SAT 91–97
[2020-10-08 01:48] LABS: Glucose Point of Care 80 mg/dL (70-110)
[2020-10-08] MEDS: dextrose 5%-sod chloride 0.45% 1,000 ML 75 ML IV ×2 (02:27→15:18)
[2020-10-08] MEDS: ampicillin-sulbactam 3 GM in sodium chloride 0.9% (plus) 50 ML IV ×3 (03:52→15:18)
--- NOTE | 2020-10-08 05:34 | P.PN_ITS ---
Subjective Subjective: Interval history: Patient overall feels well, IV fluids switched per hospitalist service due to trending down of blood glucose levels. Appropriate urine output 500 mL overnight. Heparin was held by me due to her lower hemoglobin in general, blood work is pending for today. Patient complains that the abdominal binder is rubbing on her skin Otherwise no acute events overnight Vitals/I&O/Wt Last Vital Signs Temp 99.3 F 10/08/20 04:10 Pulse 79 10/08/20 04:10 Resp 16 10/08/20 04:10 BP 158/70 10/08/20 04:10 Pulse Ox 97 10/08/20 04:10 10/07/20 10/07/20 10/08/20 14:59 22:59 06:59 Intake Total 1050 / 1050 493.333 / 8682.354 7972 / 2593.333 Output Total 220 / 220 450 / 670 200 / 870 Balance 830 / 830 43.333 / 873.333 850 / 1723.333 Physical Exam Narrative: EXAM NARRATIVE: Patient is conscious alert oriented X3 BMI 34 Head and neck examination PERRLA no masses no cervical lymphadenopathy no jaundice Cardiac examination audible S1-S2 no murmurs no gallops no arrhythmias Chest is clear bilateral,abscence of Rhonchi or wheezes,no surgical emphysema Abdomen nontender nondistended soft no organomegaly guarding or rigidity/no signs of peritonitis Dressing is dry Arana catheter in plcae w clear urine Extremities no cyanosis no clubbing no edema Urinary Catheter Management^: Arana: Cath Placed During This Visit: yes Urethral Indwelling: Yes Reason for Continuing Indwelling Catheter: Perioperative Use in Selected Surgeries Urinary Catheter Date of Insertion: 10/07/20 Urinary Catheter Time of Insertion: 09:20 Data : 10/08/20 04:54 10/08/20 04:54 A&P Assessment and plan (1) Small bowel intussusception: Patient is status post diagnostic laparoscopy and small bowel resection for small bowel mass causing secondary intussusception 10/07/2020. Awaiting bowel function We will monitor H&H, potential blood transfusion of 1 unit if there is a trending down Maintain n.p.o. status till patient starts passing gas meanwhile continue IV fluid per hospitalist service Encourage ambulation with assistance DC Arana catheter Strict I's and O Wean O2 SCDs for mechanical DVT prophylaxis Interdry sheets to be placed at the infra mammary and infra pannus areas to minimize rubbing and irritation of the abdominal binder I appreciate hospitalist input with regard to medical management of patient's diabetes Status: Resolved Attestations Medical Necessity Statement*: Inpatient hospitalization for medical management of diabetes and postsurgical care/ awaiting bowel functions Time Spent in Patient Care: (>than 50% of time spent in counselling and/or direct pt care on unit) . Coding Level of Care Code Acute Hoop Cutter for Landy Summers Diagnoses Small bowel intussusception K56.1
[2020-10-08 05:41] LABS: Hemoglobin 7.2 g/dL (11.5-15.3)
[2020-10-08 06:00] LABS: Anion Gap 15.3 (5-19); Blood Urea Nitrogen 15 mg/dL (8-23); Calcium 8.1 mg/dL (8.5-10.5); Carbon Dioxide 21 mmol/L (22-29); Chloride 106 mmol/L (98-107); Glucose 81 mg/dL (65-115); Osmolality Calculated 286 mOsm/kg (285-295); Potassium 4.3 mmol/L (3.5-5.1); Sodium 138 mmol/L (136-145)
[2020-10-08 06:38] LABS: Glucose Point of Care 91 mg/dL (70-110)
--- NOTE | 2020-10-08 09:51 | PC.CHAP ---
Pastoral Care Encounter/Spiritual Assessment Type of Contact [] Declined mink slicer visit [] Patient/Family/Request visit [] Outpatient visit [] Follow-up visit [] Physician referral [] Code/Alert [x] Routine visit [] Staff referral [] Actively dying [] Patient sleeping [] Family support [] [] Out of room [] Palliative care [] [] Receiving care in room [] Pre-surgical visit [] Trauma [] Long length of stay [] ICU visit [] Other: Relational/Emotional Strength [x] Patient feels connected with others/family/visitors/staff [] Distress [] Loneliness/isolation [] Abandonment Spirituality of Patient []x Person of Maria Luisa [] Attends Hoahaoism of their Maria Luisa [x] Believes in Prayer [] Reads Bible or Yazidism materials [] There are Spiritual issues to be addressed Loin Puller Interventions [x] Prayer [xx] Active listening [] Non-anxious presence [] Spiritual/emotional support [] Crisis/trauma care [] Spiritual counseling [] Bereavement support [] Provided bereavement packet [] Provided Bible/devotional materials [] Provided toy/stuffed animal, coloring book to patient or family member [] Provided Communion [] Anointing/[place] [] Salvation [x] Completed spiritual assessment [] Other: Impact on Illness or Injury [] Angry [] Fearful [] Anxious [] Often cries [] Exhaustion [] Unable to work [] Unable to attend mu-ism [] Unable to walk/stand [] Unable to read [] Unable to drive [] Unable to eat/drink [] Unable to sleep [] Unable to be with family [] Patient intubated [] Other: Summary Time spent with patient 10 min
[2020-10-08] MEDS: morphine 4 mg/mL SDV 1 mL 2 MG IVP (10:39)
[2020-10-08 11:45] LABS: Glucose Point of Care 120 mg/dL (70-110)
--- NOTE | 2020-10-08 11:57 | PC.NURSE ---
Assisted pt to side of bed. Walker at side. Pt stood and ambulated approx. 20 steps and back to bed. With pain med given prior to ambulation. Pt currently sitting in chair. Tolerated well.
[2020-10-08 17:04] LABS: Glucose Point of Care 115 mg/dL (70-110)
--- NOTE | 2020-10-08 18:21 | P.PN_ITS ---
Subjective Subjective: Interval history: Patient complains of a jittery feeling. She states this is about the time at night she experiences discomfort for about 2 hours. She has restless leg syndrome and feels jittery. She usually treats this with a shot of bourbon. However since she is n.p.o. we will give IV anxiety lytic. Patient is agreeable to this. Otherwise no complaints no chest pain shortness of breath nausea or vomiting she denies much pain. Medications: Reviewed: Yes Vitals/I&O/Wt Last Vital Signs Temp 97.6 F 10/08/20 16:00 Pulse 72 10/08/20 16:00 Resp 18 10/08/20 16:00 BP 139/73 10/08/20 16:00 Pulse Ox 92 10/08/20 16:00 10/08/20 10/08/20 10/08/20 06:59 14:59 22:59 Intake Total 1050 / 2593.333 50 / 50 950 / 1000 Output Total 400 / 1070 100 / 100 600 / 700 Balance 650 / 1523.333 -50 / -50 350 / 300 Physical Exam Const: COMMON NORMALS: no acute distress and patient oriented x3 GENERAL APPEARANCE: cooperative and comfortable NUTRITIONAL APPEARANCE: obese ORIENTATION/CONSCIOUSNESS: Yes awake, Yes oriented to person, Yes oriented to place and Yes oriented to time Neck/C-Spine: COMMON NORMALS: no JVD Resp: COMMON NORMALS: normal respiratory effort and clear to auscultation bi laterally AUSCULTATION: clear to auscultation bilaterally Cardio: COMMON NORMALS: no JVD, regular rate, regular rhythm, S1 normal heart sound present and S2 normal heart sound present RATE: regular rate RHYTHM: regular rhythm HEART SOUNDS: S1 normal heart sound present and S2 normal heart sound present GI: INSPECTION: Yes other (Patient is just hours postop completed inspection only. ) OTHER: Abdominal binder in place did not remove. Extremity: COMMON NORMALS: normal to inspection, capillary refill normal, no calf tenderness and no pedal edema Neuro: COMMON NORMALS: patient oriented x3 SENSORIUM/ORIENTATION: Yes oriented to person, Yes oriented to place and Yes oriented to time Urinary Catheter Management^: Arana: Cath Placed During This Visit: yes, but has since been removed by the nurse Urethral Indwelling: Yes Reason for Continuing Indwelling Catheter: Decision to DC Catheter Urinary Catheter Date of Insertion: 10/07/20 Urinary Catheter Time of Insertion: 09:20 Date Urinary Catheter Removed: 10/08/20 Time Urinary Catheter Discontinued: 06:49 Data : 10/08/20 04:54 10/08/20 04:54 A&P Assessment and plan (1) Obesity (BMI 30-39.9): Diet for weight loss after surgical recovery Status: Acute (2) DM type 2 (diabetes mellitus, type 2): Patient was placed on D5 fluids overnight blood pressures are acceptable. She is on sliding scale insulin if necessary. Status: Acute Qualifiers: Diabetes mellitus terminal supervisor insulin use: without terminal supervisor use Diabetes mellitus complication status: with neurologic complications Diabetes mellitus complication detail: with polyneuropathy Qualified Code(s): E11.42 - Type 2 diabetes mellitus with diabetic polyneuropathy (3) CKD (chronic kidney disease) stage 4, GFR 15-29 ml/min: Patient's creatinine appears to be at baseline her BUN has normalized with fluids. I do not anticipate a problem since she is continued on fluids at this time. Status: Acute (4) Gastroesophageal reflux: Patient on Protonix 40 mg every morning. Will hold at this time. I suspect she will not have much heartburn during n.p.o. status. Status: Acute (5) HTN (hypertension): Blood pressure elevated but stable. Continue metoprolol 5 mg every 4 hours as needed blood pressure greater than 160/90. Could also consider the use of hydralazine. Status: Acute Attestations 2 Medical Necessity Statement*: post op, npo, awaiting bowel function Coding Level of Care Code Acute Telecasting Engineer for g Fwd Diagnoses Obesity (BMI 30-39.9) E66.9 DM type 2 (diabetes mellitus, type 2) E11.42 Diabetes mellitus terminal supervisor insulin use: without terminal supervisor use Diabetes mellitus complication status: with neurologic complications Diabetes mellitus complication detail: with polyneuropathy CKD (chronic kidney disease) stage 4, GFR 15-29 ml/min N18.4 Gastroesophageal reflux K21.9 HTN (hypertension) I10
--- NOTE | 2020-10-08 18:50 | PC.NURSE ---
SHIFT SUMMARY PATIENT HAS DONE WELL TODAY. PAIN WELL CONTROLLED. HYPOACTIVE BOWEL SOUNDS. NEGATIVE FOR GAS. PATIENT HAS AMBULATED MULTIPLE TIMES AND SAT IN THE CHAIR. PATIENT'S CALLEJAS CATHETER WAS REMOVED THIS AM. PATIENT VOIDED 100ML OF URINE ON HER OWN AND WAS UNABLE TO VOID MORE. THIS NURSE BLADDER SCANNED PATIENT AND BLADDER SCAN SHOWED 200ML. DR. PRICE WAS NOTIFIED AND HE ORDERED AN IN AND OUT CATH. THIS NURSE INSERTED CATHETER AND RECEIVED 500ML OF URINE. DR. PRICE NOTIFIED. PRN STRAIGHT CATH ORDER GIVEN.
[2020-10-08 20:36] LABS: Glucose Point of Care 119 mg/dL (70-110)
[2020-10-09] VITALS (14 sets, daily range): BP systolic 109–194; BP diastolic 69–107; PULSE 67–82; RESP 17–18; TEMP 36.1–37.3; O2SAT 95–100
[2020-10-09 05:30] LABS: Hematocrit 24.1 % (37.0-47.0); Hemoglobin 6.7 g/dL (11.5-15.3)
[2020-10-09 05:50] LABS: Blood Urea Nitrogen 11 mg/dL (8-23); Calcium 8.6 mg/dL (8.5-10.5); Carbon Dioxide 24 mmol/L (22-29); Chloride 104 mmol/L (98-107); Glucose 128 mg/dL (65-115); Osmolality Calculated 283 mOsm/kg (285-295); Sodium 136 mmol/L (136-145)
[2020-10-09 06:47] LABS: Glucose Point of Care 145 mg/dL (70-110)
--- NOTE | 2020-10-09 07:37 | P.PN_ITS ---
Subjective Subjective: Interval history: Patient overall feels better started passing gas and had a bowel movement. No acute events overnight Vitals/I&O/Wt Last Vital Signs Temp 98.4 F 10/09/20 07:28 Pulse 74 10/09/20 07:28 Resp 18 10/09/20 07:28 BP 153/78 10/09/20 07:28 Pulse Ox 97 10/09/20 07:28 10/08/20 10/09/20 10/09/20 22:59 06:59 14:59 Intake Total 950 / 1000 1050 / 2050 Output Total 600 / 700 450 / 1150 Balance 350 / 300 600 / 900 Physical Exam Narrative: EXAM NARRATIVE: Patient is conscious alert oriented X3 BMI 34 Head and neck examination PERRLA no masses no cervical lymphadenopathy no jaundice Cardiac examination audible S1-S2 no murmurs no gallops no arrhythmias Chest is clear bilateral,abscence of Rhonchi or wheezes,no surgical emphysema Abdomen nontender nondistended soft no organomegaly guarding or rigidity/no signs of peritonitis Incisions are clean dry and intact and skin pepe in place Extremities no cyanosis no clubbing no edema Urinary Catheter Management^: Arana: Cath Placed During This Visit: yes, but has since been removed by the nurse Urethral Indwelling: Yes Reason for Continuing Indwelling Catheter: Decision to DC Catheter Urinary Catheter Date of Insertion: 10/07/20 Urinary Catheter Time of Insertion: 09:20 Date Urinary Catheter Removed: 10/08/20 Time Urinary Catheter Discontinued: 06:49 Data : 10/09/20 05:22 10/09/20 05:22 A&P Assessment and plan (1) Small bowel intussusception: Slight drift in H&H will require 1 unit of blood transfusion We will start the patient slowly on clear liquid diet Encourage ambulation with assistance I appreciate hospitalist input with regard to medical management of patient's diabetes Status: Resolved Attestations Medical Necessity Statement*: Inpatient hospitalization for medical management of diabetes and surgical care in the form of transfusion of 1 unit of packed RBCs and monitoring bowel functions. Time Spent in Patient Care: (>than 50% of time spent in counselling and/or direct pt care on unit) . Coding Level of Care Code Acute Client Services Administrator for Landy Summers Diagnoses Small bowel intussusception K56.1
--- NOTE | 2020-10-09 11:05 | PM.PN ---
Subjective Subjective: Interval history: Patient seen sitting in a chair. She is smiling. She has passed gas and had a loose bowel movement. She is eating a full liquid diet. Medications: Reviewed: Yes Vitals/I&O/Wt Last Vital Signs Temp 98.4 F 10/09/20 07:28 Pulse 74 10/09/20 07:28 Resp 18 10/09/20 07:28 BP 153/78 10/09/20 07:28 Pulse Ox 97 10/09/20 07:28 10/08/20 10/09/20 10/09/20 22:59 06:59 14:59 Intake Total 950 / 1000 1050 / 2050 240 / 240 Output Total 600 / 700 450 / 1150 520 / 520 Balance 350 / 300 600 / 900 -280 / -280 Physical Exam Const: COMMON NORMALS: no acute distress and patient oriented x3 GENERAL APPEARANCE: cooperative and comfortable NUTRITIONAL APPEARANCE: obese ORIENTATION/CONSCIOUSNESS: Yes awake, Yes oriented to person, Yes oriented to place and Yes oriented to time Resp: COMMON NORMALS: normal respiratory effort and clear to auscultation bilaterally AUSCULTATION: clear to auscultation bilaterally Cardio: COMMON NORMALS: regular rate, regular rhythm, S1 normal heart sound present and S2 normal heart sound present RATE: regular rate RHYTHM: regular rhythm HEART SOUNDS: S1 normal heart sound present and S2 normal heart sound present GI: INSPECTION: Yes other (Patient is just hours postop completed inspection only. ) OTHER: Abdominal binder in place did not remove. Back/Pelvis: COMMON NORMALS: thoracic and lumbar spine normal to inspection Extremity: COMMON NORMALS: normal to inspection, capillary refill normal, no calf tenderness and no pedal edema Neuro: COMMON NORMALS: patient oriented x3 and CN's II-XII intact bilaterally SENSORIUM/ORIENTATION: Yes oriented to person, Yes oriented to place and Yes oriented to time Skin: COMMON NORMALS: no rashes or lesions noted GENERAL SKIN EXAM: no rashes or lesions noted Urinary Catheter Management^: Arana: Cath Placed During This Visit: yes, but has since been removed by the nurse Urethral Indwelling: Yes Reason for Continuing Indwelling Catheter: Decision to DC Catheter Urinary Catheter Date of Insertion: 10/07/20 Urinary Catheter Time of Insertion: 09:20 Date Urinary Catheter Removed: 10/08/20 Time Urinary Catheter Discontinued: 06:49 Data : 10/09/20 05:22 10/09/20 05:22 A&P Assessment and plan (1) Obesity (BMI 30-39.9): Diet for weight loss after surgical recovery Status: Acute (2) DM type 2 (diabetes mellitus, type 2): Patient on IV dextrose solution. Blood sugars acceptable. We will stop the IV fluids now that taking diet . Status: Acute Qualifiers: Diabetes mellitus long chain dyeing machine operator insulin use: without chcf use Diabetes mellitus complication status: with neurologic complications Diabetes mellitus complication detail: with polyneuropathy Qualified Code(s): E11.42 - Type 2 diabetes mellitus with diabetic polyneuropathy (3) CKD (chronic kidney disease) stage 4, GFR 15-29 ml/min: Patient's creatinine at baseline Status: Acute (4) Gastroesophageal reflux: Patient on Protonix 40 mg every morning. On hold at this time. Status: Acute (5) HTN (hypertension): Blood pressure elevated but stable. Continue metoprolol 5 mg every 4 hours as needed blood pressure greater than 160/90. Status: Acute Attestations Medical Necessity Statement*: post op Coding Level of Care Code Acute Cryptography Teacher for Chg Fwd Diagnoses Obesity (BMI 30-39.9) E66.9 DM type 2 (diabetes mellitus, type 2) E11.42 Diabetes mellitus long chain dyeing machine operator insulin use: without chcf use Diabetes mellitus complication status: with neurologic complications Diabetes mellitus complication detail: with polyneuropathy CKD (chronic kidney disease) stage 4, GFR 15-29 ml/min N18.4 Gastroesophageal reflux K21.9 HTN (hypertension) I10
[2020-10-09 11:07] LABS: Glucose Point of Care 121 mg/dL (70-110)
[2020-10-09] MEDS: dextrose 5%-sod chloride 0.45% 1,000 ML 75 ML IV (12:18)
[2020-10-09] MEDS: sodium chloride 0.9% (100 ml) 100 ML 150 ML (15:05)
[2020-10-09] MEDS: venlafaxine ER (24HR) 150 mg Capsule PO (16:09)
[2020-10-09 17:00] LABS: Glucose Point of Care 131 mg/dL (70-110)
[2020-10-09] MEDS: losartan 50 mg Tablet 100 MG PO (18:44)
[2020-10-09 20:57] LABS: Glucose Point of Care 134 mg/dL (70-110)
[2020-10-09] MEDS: amlodipine 10 mg Tablet PO (20:58)
[2020-10-09] MEDS: LORazepam 2 mg/mL INJ 1 mL 0.5 MG IVP (20:59)
[2020-10-10] VITALS: BP 171/66; PULSE 85; RESP 18; TEMP 36.6; O2SAT 92
[2020-10-10 04:00] VITALS: BP 156/79; PULSE 79; RESP 17; TEMP 36.7; O2SAT 96
[2020-10-10 06:06] LABS: Hematocrit 31.4 % (37.0-47.0); Hemoglobin 9.2 g/dL (11.5-15.3)
--- NOTE | 2020-10-10 06:27 | PM.PN ---
Subjective Subjective: Interval history: Patient overall feels well. Continues to pass gas and tolerating p.o. intake. Received 1 unit of packed RBCs yesterday. Current hemoglobin is 9.2 Vitals/I&O/Wt Last Vital Signs Temp 98.0 F 10/10/20 04:00 Pulse 79 10/10/20 04:00 Resp 17 10/10/20 04:00 BP 156/79 10/10/20 04:00 Pulse Ox 96 10/10/20 04:00 10/09/20 10/09/20 10/10/20 14:59 22:59 06:59 Intake Total 640 / 640 1001.25 / 1641.25 Output Total 520 / 520 0 / 520 150 / 670 Balance 120 / 120 1001.25 / 1121.25 -150 / 971.25 Physical Exam Narrative: EXAM NARRATIVE: Patient is conscious alert oriented X3 BMI 34 Head and neck examination PERRLA no masses no cervical lymphadenopathy no jaundice Cardiac examination audible S1-S2 no murmurs no gallops no arrhythmias Chest is clear bilateral,abscence of Rhonchi or wheezes,no surgical emphysema Abdomen nontender nondistended soft no organomegaly guarding or rigidity/no signs of peritonitis Incisions are clean dry and intact and skin pepe in place Extremities no cyanosis no clubbing no edema Urinary Catheter Management^: Arana: Cath Placed During This Visit: yes, but has since been removed by the nurse Urethral Indwelling: Yes Reason for Continuing Indwelling Catheter: Decision to DC Catheter Urinary Catheter Date of Insertion: 10/07/20 Urinary Catheter Time of Insertion: 09:20 Date Urinary Catheter Removed: 10/07/20 Time Urinary Catheter Discontinued: 01:00 Data : 10/10/20 05:42 10/10/20 05:42 A&P Assessment and plan (1) Small bowel intussusception: Will advance to full liquid diet Encourage ambulation with assistance Once patient tolerates advancement of diet will plan to discharge home today from surgical standpoint of view and will coordinate with hospitalist service with that regard. Return to surgery office in 10 days I appreciate hospitalist input with regard to medical management of patient's diabetes Status: Resolved Attestations Medical Necessity Statement*: Inpatient hospitalization for medical management of diabetes and perioperative care for small bowel resection and anastomosis Time Spent in Patient Care: Greater than 35 minutes (>than 50% of time spent in counselling and/or direct pt care on unit). Coding Level of Care Code Acute Value Stream Manager for Chg Fwd Diagnoses Small bowel intussusception K56.1
[2020-10-10 06:30] LABS: Blood Urea Nitrogen 12 mg/dL (8-23); Calcium 8.7 mg/dL (8.5-10.5); Carbon Dioxide 21 mmol/L (22-29); Chloride 100 mmol/L (98-107); Glucose 141 mg/dL (65-115); Osmolality Calculated 282 mOsm/kg (285-295); Sodium 135 mmol/L (136-145)
[2020-10-10 06:48] LABS: Glucose Point of Care 96 mg/dL (70-110)
[2020-10-10 07:25] VITALS: BP 156/73; PULSE 77; RESP 16; TEMP 36.7; O2SAT 97
--- NOTE | 2020-10-10 09:06 | PC.SOCIAL ---
IMM Update Pg.2 of IMM Updated and reviewed with patient who verbalized understanding. Copy provided to patient.
[2020-10-10 10:30] LABS: Glucose Point of Care 106 mg/dL (70-110)
[2020-10-10 11:46] VITALS: BP 156/73
[2020-10-10] MEDS: losartan 50 mg Tablet 100 MG PO (11:46)
[2020-10-10] MEDS: venlafaxine ER (24HR) 150 mg Capsule PO (11:47)
[2020-10-10 12:00] VITALS: BP 156/73; PULSE 77; RESP 16; TEMP 36.7; O2SAT 97
--- NOTE | 2020-10-10 13:22 | P.PN_ITS ---
Subjective Subjective: Interval history: patient was doing well awaiting discharge planning. Medications: Reviewed: Yes Vitals/I&O/Wt Last Vital Signs Temp 98.0 F 10/10/20 15:48 Pulse 77 10/10/20 15:48 Resp 16 10/10/20 15:48 BP 156/73 10/10/20 15:48 Pulse Ox 97 10/10/20 15:48 Physical Exam Const: COMMON NORMALS: no acute distress and patient oriented x3 GENERAL APPEARANCE: cooperative and comfortable NUTRITIONAL APPEARANCE: obese ORIENTATION/CONSCIOUSNESS: Yes awake, Yes oriented to person, Yes oriented to place and Yes oriented to time HENMT: COMMON NORMALS: normocephalic, hearing grossly normal bilaterally and Normal nasal mucous membranes and turbinates present HEAD & SCALP: normocephalic NOSE: Normal nasal mucous membranes and turbinates present Eye: COMMON NORMALS: Equal, round and reactive pupils present and EOMs intact bilaterally PUPIL: Yes Equal, round and reactive pupils present Neck/C-Spine: COMMON NORMALS: full ROM, no lymphadenopathy, supple, Thyroid normal and No carotid bruits THYROID: Thyroid normal Lymph: LYMPHATIC: no lymphadenopathy noted Chest: COMMONS NORMALS: normal inspection of the chest and normal palpation of entire chest wall Resp: COMMON NORMALS: normal respiratory effort and clear to auscultation bilaterally AUSCULTATION: clear to auscultation bilaterally Cardio: COMMON NORMALS: regular rate, regular rhythm, S1 normal heart sound present and S2 normal heart sound present RATE: regular rate RHYTHM: regular rhythm HEART SOUNDS: S1 normal heart sound present and S2 normal heart sound present GI: INSPECTION: Yes other (Patient is just hours postop completed inspection only. ) OTHER: Abdominal binder in place did not remove. Back/Pelvis: COMMON NORMALS: thoracic and lumbar spine normal to inspection Extremity: COMMON NORMALS: normal to inspection, capillary refill normal, no calf tenderness and no pedal edema Neuro: COMMON NORMALS: patient oriented x3 and CN's II-XII intact bilaterally SENSORIUM/ORIENTATION: Yes oriented to person, Yes oriented to place and Yes oriented to time Psych: COMMON NORMALS: mental status grossly normal, Normal thought process present and speech normal ATTITUDE: Yes calm ACTIVITY/MOTOR BEHAVIOR: Yes appropriate eye contact SPEECH: Yes normal speech MOOD & AFFECT: Yes euthymic mood THOUGHT PROCESS: Normal thought process present Skin: COMMON NORMALS: no rashes or lesions noted GENERAL SKIN EXAM: no blayne hes or lesions noted Urinary Catheter Management^: Arana: Cath Placed During This Visit: yes, but has since been removed by the nurse Urethral Indwelling: Yes Reason for Continuing Indwelling Catheter: Decision to DC Catheter Urinary Catheter Date of Insertion: 10/07/20 Urinary Catheter Time of Insertion: 09:20 Date Urinary Catheter Removed: 10/07/20 Time Urinary Catheter Discontinued: 01:00 Data : 10/10/20 05:42 10/10/20 05:42 A&P Assessment and plan (1) Obesity (BMI 30-39.9): (2) DM type 2 (diabetes mellitus, type 2): Qualifiers: Diabetes mellitus poker prop player insulin use: without poker prop player use Diabetes mellitus complication status: with neurologic complications Diabetes mellitus complication detail: with polyneuropathy Qualified Code(s): E11.42 - Type 2 diabetes mellitus with diabetic polyneuropathy (3) CKD (chronic kidney disease) stage 4, GFR 15-29 ml/min: (4) Gastroesophageal reflux: (5) HTN (hypertension): Dietary modifications Sliding scale insulin Patient's creatinine at baseline Continue PPI Patient is stable medically and cleared for discharge Attestations Medical Necessity Statement*: discharge per primary team Time Spent in Patient Care: Greater than 35 minutes (>than 50% of time spent in counselling and/or direct pt care on unit) . Coding Level of Care Code Acute Interpreter Translator for Chg Fwd Diagnoses Obesity (BMI 30-39.9) E66.9 DM type 2 (diabetes mellitus, type 2) E11.42 Diabetes mellitus poker prop player insulin use: without skilled nursing use Diabetes mellitus complication status: with neurologic complications Diabetes mellitus complication detail: with polyneuropathy CKD (chronic kidney disease) stage 4, GFR 15-29 ml/min N18.4 Gastroesophageal reflux K21.9 HTN (hypertension) I10
--- NOTE | 2020-10-10 14:49 | PC.NURSE ---
Late entry AM medications given late due to an emergency situation with another patient.
--- NOTE | 2020-10-10 15:18 | PC.NURSE ---
this nurse went over discharge instructions with the patient, patient verbalized understanding of instructions. IV was removed at 1445, cath tip intact, patient tolerated well.the PENSION AGENT took the patient by wheelchair down to private vehicle, accompanied by daughter.
[2020-10-10 15:48] VITALS: BP 156/73; PULSE 77; RESP 16; TEMP 36.7; O2SAT 97
--- NOTE | 2020-10-10 16:54 | P.DS_ITS ---
Discharge Providers Date of Admission: 10/07/20 14:13 Date of Discharge: October 10, 2020 Attending Provider at Admission: Waldo Cagle MD Attending Provider at Discharge: Waldo Cagle MD Primary Care Provider: Elie Harry MD Diagnoses at Discharge Discharge Diagnosis (1) Small bowel intussusception: Status: Resolved Permanent problem details: Condition resolved Reason for Visit Reason for Visit: LAPAROTOMY [id number], SMALL BOWEL RESECTION WITH POSSI Hospital Course Hospital Course Patient did well after diagnostic laparoscopy and small bowel resection for intussusception secondary to small bowel mass and undergone resection and anastomosis in the form of [id number] of the small bowel. Maintained to have good urine output and stable vital signs, H&H had a slight drift and a unit of blood was administered and repeated blood work showed appropriate H&H levels, patient continued to tolerate p.o. intake and passing gas and having bowel movements and she was advanced to full liquid diet. Pain continued to be under control. Patient met the appropriate criteria for safe discharge home. The plan to follow-up at the surgery office in 1 week Physical Exam Urinary Catheter Management^: Arana: Cath Placed During This Visit: yes, but has since been removed by the nurse Urethral Indwelling: Yes Reason for Continuing Indwelling Catheter: Decision to DC Catheter Urinary Catheter Date of Insertion: 10/07/20 Urinary Catheter Time of Insertion: 09:20 Date Urinary Catheter Removed: 10/07/20 Time Urinary Catheter Discontinued: 01:00 Discharge Data Data Completed and Pending: Pending at discharge Category Date Time Status ES surgery / GI i mages Routine Exams 10/07/20 07:57 Taken PRBC [Leukocyte R educed RBC] Routin e Lab 10/07/20 07:58 Results Type and Screen R outine Lab 10/07/20 07:58 Results Pathology: Surgic al [PTH] Routine Pth 10/07/20 12:05 Received Labs from last 24 hours 10/10/20 10/10/20 10/10/20 10:27 06:37 05:42 Hgb Hct Sodium 135 L Potassium 4.0 Chloride 100 Carbon Dioxide 21 L Anion Gap 18.0 BUN 12 Creatinine 1.5 H GFR Calculation Not Reportable Glucose 141 H POC Glucose 106 96 Calculated Osmolal ity 282 L Calcium 8.7 Crossmatch 10/10/20 10/09/20 10/09/20 05:42 20:45 16:52 Hgb 9.2 L Hct 31.4 L Sodium Potassium Chloride Carbon Dioxide Anion Gap BUN Creatinine GFR Calculation Glucose POC Glucose 134 H 131 H Calculated Osmolal ity Calcium Crossmatch 10/07/20 07:58 Hgb Hct Sodium Potassium Chloride Carbon Dioxide Anion Gap BUN Creatinine GFR Calculation Glucose POC Glucose Calculated Osmolal ity Calcium Crossmatch See Detail Vitals: Last Vital Signs Temp 98.0 F 10/10/20 15:48 Pulse 77 10/10/20 15:48 Resp 16 10/10/20 15:48 BP 156/73 10/10/20 15:48 Pulse Ox 97 10/10/20 15:48 Discharge Plan Discharge Patient Disposition: Home Condition: Stable Prescriptions: Continued pantoprazole 40 mg tablet,delayed release (DR/EC) 40 mg PO QAM RF: 0 (DME) blood-glucose meter [Contour Meter] Kit See Rx Instructions .ROUTE .MEDSUPPLY Qty: 1 RF: 0 amlodipine 10 mg tablet 10 mg PO BEDTIME RF: 0 trazodone 100 mg tablet 100 mg PO BEDTIME RF: 0 hydrocodone-acetaminophen 5-325 mg tablet 1 tab PO BID PRN (Reason: Pain) RF: 0 (DME) Contour Test Strips Strip See Rx Instructions .ROUTE .MEDSUPPLY Qty: 100 RF: 0 (DME) lancets [Advocate Lancet] 30 gauge misc See Rx Instructions .ROUTE .MEDSUPPLY Qty: 200 RF: 3 (DME) Blood Glucose Test Strip See Rx Instructions .ROUTE .MEDSUPPLY Qty: 200 RF: 3 Lantus Solostar U-100 Insulin 100 unit/mL (3 mL) insulin pen 16 unit SUBCUT QAM RF: 0 losartan 100 mg tablet 100 mg PO QAM RF: 0 ropinirole 0.5 mg tablet 0.5 mg PO BEDTIME RF: 0 venlafaxine 150 mg capsule,extended release 24hr 150 mg PO QAM RF: 0 Discharge Orders: Discharge Order (Routine); Ordered 10/10/20 Ordered By: Waldo Cagle Referrals: Waldo Cagle MD [Physician] - 10/16/20 8:45 am (RTC in one week w Dr Cagle) Discharge Diet: Advance as tolerated Discharge Activity: Limit activity as instructed Patient Instructions: Laparoscopy, Bowel Resection (DC), Surgical Site In fections (GEN) Activity Restrictions/Additional Instructions: 1. Patient can shower after 48 hours from surgery 2. Abdominal Binder for comfort only 3. Up and walking as tolerated 4. Do not lift more than 5 pounds first 2 weeks after surgery and not more than 25 pounds 6 to 8 weeks after surgery. 5. Do not operate heavy machinery or drive while using pain medications. 6.Contact the office or return to the ER for worsening nausea vomiting fevers or chills, or noticing any redness around incision sites or discharge. 7.Avoid constipation Discharge Attestations Time Spent in Discharge Care*: greater than 30 min Specific Discharge Activities: educating patient and educating and/or supporting family/caregiver Status at Discharge: Cognitive status at discharge: cognitively intact , Behavioral status at discharge: cooperative , Functional status at discharge: independent ambulation Overall status at discharge: patient is progressing ba ck to baseline Quality Metrics Clinical Quality Measures During this hospital stay, did patient experience: None Coding Level of Care Code Acute Cleaning And Washing Equipment Operator for [facility] Fwd Diagnoses Small bowel intussusception K56.1
== END 2020-10-10 15:00 | disposition home or self-care (01) | DRG 330 ==
LOC: MEDSURG 10-08 09:54
PROVIDERS: Anesthesiology; Admitting Provider Surgery; PCP Internal Medicine; Visit Provider Surgery
PROC: 0DT84ZZ Resection of Small Intestine, Percutaneous Endoscopic Approach (ICD-10-PCS; CPT 49320; principal; 2020-10-07 08:45)
PROC: 0DT84ZZ Resection of Small Intestine, Percutaneous Endoscopic Approach (ICD-10-PCS; CPT 44120; 2020-10-07 08:45)
DX: K56.1 Intussusception (principal); N18.4 Chronic kidney disease, stage 4 (severe); E66.9 Obesity, unspecified; Z68.33 Body mass index [BMI] 33.0-33.9, adult; K59.00 Constipation, unspecified; Z85.528 Personal history of other malignant neoplasm of kidney; Z90.5 Acquired absence of kidney; F41.9 Anxiety disorder, unspecified; K76.0 Fatty (change of) liver, not elsewhere classified; M21.41 Flat foot [pes planus] (acquired), right foot; F32.9 Major depressive disorder, single episode, unspecified; K21.9 Gastro-esophageal reflux disease without esophagitis; E11.22 Type 2 diabetes mellitus with diabetic chronic kidney disease; I12.9 Hypertensive chronic kidney disease with stage 1 through stage 4 chronic kidney disease, or unspecified chronic kidney disease; Z90.2 Acquired absence of lung [part of]; Z87.891 Personal history of nicotine dependence; E11.42 Type 2 diabetes mellitus with diabetic polyneuropathy; G25.81 Restless legs syndrome; Z79.891 Long term (current) use of opiate analgesic; K63.89 Other specified diseases of intestine
CPT/HCPCS: 36415; 36416; 36430; 51702; 80048; 82962; 85014; 85018; 85025; 86850; 86900; 86920; 88305; 88307; 93005; 96365; 96372; J0295; J1644; J1815; J2060; J2270; J2370; J2405; J2704; J2710; J3010; J3490; J7030; J7799; P9016

== ENCOUNTER 2020-10-30 08:31 | Outpatient (CLI) | payer MEDICARE, OTHER, SELFPAY ==
[2020-10-30 09:07] LABS: Basophils % 0.6 %; Eosinophils # 0.4 10^3/uL (0.0-0.8); Hematocrit 34.4 % (37.0-47.0); Lymphocytes # 0.8 10^3/uL (0.8-4.8); Lymphocytes % 11.4 %; Mean Corpuscular HGB Conc 29.1 g/dL (30.0-36.0); Mean Corpuscular Volume 89.6 fL (81-99); Mean Platelet Volume 11.3 fL (7.4-10.4); Monocytes # 0.4 10^3/uL (0.2-0.9); Monocytes % 5.4 %; Neutrophils # 5.56 10^3/uL (1.8-7.7); Neutrophils % 77.2 %; Nucleated Red Blood Cells % 0 %; Platelet Count 341 10^3/cmm (130-400); Red Blood Count 3.84 10^6/uL (4.1-5.3); Red Cell Distribution Width 16.7 % (12.1-15.1); White Blood Count 7.2 10^3/uL (4.0-10.0)
[2020-10-30 09:24] LABS: Alanine Aminotransferase 8 U/L (0-33); Albumin Level 3.8 g/dL (3.5-5.2); Alkaline Phosphatase 94 IU/L (35-105); Anion Gap 15.8 (5-19); Aspartate Amino Transferase 12 U/L (0-32); Blood Urea Nitrogen 33 mg/dL (8-23); Calcium 9.3 mg/dL (8.5-10.5); Carbon Dioxide 24 mmol/L (22-29); Chloride 102 mmol/L (98-107); Globulin 3.2 g/dL (1.3-4.6); Glucose 169 mg/dL (65-115); Iron 33 ug/dL (37-145); Lactate Dehydrogenase 182 U/L (135-214); Osmolality Calculated 295 mOsm/kg (285-295); Percent Saturation 11.8 % (20-50); Potassium 4.8 mmol/L (3.5-5.1); Sodium 137 mmol/L (136-145); Total Bilirubin 0.2 mg/dL (0.15-1.2); Total Iron Binding Capacity 278 mcg/dl; Unsaturated Iron Binding 245 ug/dL (112-347)
[2020-10-30 11:23] LABS: Estmated Average Glucose 105; Hemoglobin A1C 5.3 % (4.0-6.0)
== END 2020-10-30 08:32 | disposition home or self-care (01) ==
LOC: ONCMED 13:10
PROVIDERS: PCP Internal Medicine; Visit Provider Internal Medicine Medical Oncology
DX: C64.1 Malignant neoplasm of right kidney, except renal pelvis (principal); C78.02 Secondary malignant neoplasm of left lung; C78.01 Secondary malignant neoplasm of right lung; C78.4 Secondary malignant neoplasm of small intestine; N18.30 Chronic kidney disease, stage 3 unspecified; E11.9 Type 2 diabetes mellitus without complications; D50.9 Iron deficiency anemia, unspecified; I10 Essential (primary) hypertension; K21.9 Gastro-esophageal reflux disease without esophagitis; F41.9 Anxiety disorder, unspecified; F32.9 Major depressive disorder, single episode, unspecified
CPT/HCPCS: 36415; 80053; 83036; 83540; 83550; 83615; 85025

== ENCOUNTER 2020-11-04 06:00 | Outpatient (CLI) | payer MEDICARE, OTHER, SELFPAY ==
--- NOTE | 2020-11-07 17:47 | ONC FU_ITS ---
Dr. Ruiz Patient Follow-Up Note Patient: Angelika Sanchez Unit #: [id number]: 1945 Dicatated By: Diogenes Ruiz M.D.Date of Visit:Nov 04, 2020 Onc Med Follow-up/Prog Note Chief Complaint: Anemia/renal cell cancer. History of Present Illness: This is a 75 year-old woman wtih metastatic renal cell cancer. She also has mild to moderately severe anemia. I had initially seen in November 2012 with persistent anemia following an episode of tularemia the preceding fall. She had been in good health until March of 2012 when she came down with a high fever. She said she had never been so sick in her life. The illness was associated with a sore in the area of the left axilla. She ultimately was determined to have and was treated for tularemia. She did show some gradual improvement with treatment, but she never actually got better, and her laboratory studies showed persistent anemia and elevated sed rate. She failed to improve with parenteral iron replacement and with retreatment of the tularemia. Abdominal CT scan in May 2013 showed a large right renal mass consistent with renal cell carcinoma. There was suspected invasion of the right renal vein. A small right upper lobe pulmonary nodule was indeterminate. She also was noted to have a 2.3 x 1.6 cm nodule in the left lobe of the thyroid. There was no other obvious metastatic disease. She underwent right nephrectomy on 06/27/13. Pathology showed grade 4 clear cell carcinoma. The tumor measured 12.7 x 11.0 x 9.5 cm. There was gross extension into the renal vein, and the renal vein margin was noted to be positive. All other surgical margins were negative. One hilar lymph node was negative. Pathologic staging was pT3a, pN0. She indicates that prior to the nephrectomy, she did see an cloth classer, and biopsy of the thyroid nodule reportedly was benign. She did develop a wound infection, but that subsequently resolved. Her postoperative course was unremarkable. A followup CT scan in August 2013 showed no significant change in the right upper lobe pulmonary nodule. A right middle lobe nodule also was reported on that study. It measured only 2 to 3 mm, and it was noted to be unchanged. However, repeat CT scans in November 2013 did show a significant increase in the right upper lobe nodule. The small right middle lobe nodule and another small nodule in the right lower lobe appeared stable or perhaps slightly increased. At that point she was referred to Dr. Coates. On 01/14/2014 she underwent right thoracotomy with wedge resection of all 3 pulmonary nodules. Pathology on the right upper lobe nodule showed a high-grade metastatic renal cell carcinoma measuring 1.4 x 1.3 cm. The right middle lobe nodule was a well differentiated neuroendocrine tumor (carcinoid tumor) measuring 4 x 3 mm. The right lower lobe nodule was a more well differentiated metastatic renal cell carcinoma. During recovery she had some issues with blood pressure control and with lower extremity edema, but she otherwise recovered uneventfully. On a scheduled surveillance CT scan in February 2015, she was found to have a new 7.4 mm irregular nodule at the apex of the left lung. It was felt to be suspicious for a primary tumor or metastatic disease. There were no other suspicious findings at that time. Further evaluation with PET/CT showed low-grade FDG uptake in the nodule with SUV 1.5. It was felt to be consistent with metastatic disease. There were no other areas of abnormal uptake on that study. As the findings were felt to be consistent with a single site of additional metastatic involvement, she was referred to Dr. Osman for SBRT. She completed treatment on 03/31/2015 to a total dose of 4800 cGy, delivered in 4 fractions of 1200 cGy. Follow-up PET/CT on 06/28/2015 showed a residual FDG negative nodule measuring 3 mm consistent with positive response to therapy. There was no evidence of any new metastatic disease on that study. Surveillance chest CT on 12/30/2016 showed postsurgical changes in the right thorax with no evidence of recurrence on the right. There was a new 5 mm nodule noted in the lingula, indeterminate for an early metastatic site. Her follow-up CT scans of the chest, abdomen, and pelvis on 04/12/2017 showed increase in the size of the nodule in the lingula to 6.8 mm compared to 4.4 mm in December. There was stable scarring in the left upper lobe. There were no new pulmonary parenchymal nodules. A 2 cm left thyroid lobe nodule appeared stable. There was no evidence of recurrence or metastatic involvement in the abdomen/pelvis. She was referred to Dr. Osman, and she underwent SBRT to the lesion in the lingula, completed on 05/06/2017 to a total dose of 4800 cGy. She tolerated it well. Her repeat chest CT on 06/30/2017 showed stable 7 mm nodule in the lingula. There was biapical fibrosis, worse the left upper lobe. Restaging CT scans of the chest, abdomen, and pelvis on 11/29/2017 showed further increase in the size of the lingular opacity, measuring 12 mm. The findings were felt to be consistent with metastatic lesion versus postradiation changes. There was stable scar at the left lung apex. There was evidence of hepatic steatosis. There was no evidence of any new metastatic disease. Chest CT on 03/01/2018 showed left apical focal parenchymal nodule measuring 9.1 x 16 mm, felt to be most likely due to scarring and similar to the previous study. Right upper lobe parenchymal scarring also appeared unchanged. There was interval decreased density of the lingula focal opacities, felt to probably represent resolving infectious or inflammatory process. She then continued on observation/expectant management for the renal cell cancer. As of August [address] scans had shown no evidence of disease progression. Her other medical illnesses include hypertension, stage III chronic kidney disease, type 2 diabetes, GERD, and chronic anxiety/depression. She has a history of smoking 2 packs of cigarettes daily for 29 years. She quit smoking in the early . INTERIM HISTORY: A restaging PET/CT on 12/23/2018 showed a 1.2 x 1.7 cm left upper lobe nodule without significant FDG activity. The appearance was consistent with scarring. Right upper lobe scarring was also FDG negative. There were no areas of abnormal uptake on that study. At that point she had become mildly anemic again. Her B12 level was normal. Her serum iron studies from 03/21/2019 showed low transferrin saturation at 18.3%, suggesting possible iron deficiency. Her repeat chest CT on 06/18/2019 showed stable appearance of the irregular nodular focus in the left upper lobe, measuring 10 x 24 mm. Postoperative changes in the right upper and middle lobes appeared stable, as did the appearance of the lingular subsegmental atelectasis or scarring. A 2.2 cm left thyroid lobe nodule also appeared stable. Overall, there was no evidence of disease progression. As of 06/28/2019 there was further decrease in the hemoglobin to 10.9 g with the transferrin saturation further decreased to 15%. At that point she did start an oral iron supplement. She continued on observation/expectant management for the renal cell cancer. As of September 2019 there was further decrease in the hemoglobin to 9.5 g, and at that point she was given parenteral iron replacement with a single infusion of Injectafer. She received a second infusion on 11/13/2019. Initially there was a slight increase in the hemoglobin/hematocrit levels, but they had subsequently declined. Restaging CT scans on 04/25/2020 showed no evidence for metastatic disease or interval change within the chest, abdomen, or pelvis. The irregular opacification in the left upper lobe appeared stable. A right basilar nodule noted on the January study had resolved. There was evidence for hepatic steatosis and there appeared to be transient intussusception of small bowel in the left abdomen. Restaging PET/CT on 07/12/2020 showed unchanged, FDG negative left apical pulmonary nodule. Right upper lobe scarring also was FDG negative and appeared stable. There was relatively intense FDG activity in the central small bowel with CT evidence for intussusception. There were no other areas of abnormal uptake. With those findings she was referred to Dr. Cagle. She had further evaluation with upper GI and small bowel x-ray on 08/29/2020. On 10/07/2020 she underwent diagnostic laparoscopy followed by mini laparotomy with partial small bowel resection and [id number] small bowel anastomosis. She was found to have a mass occupying the proximal jejunal loop estimated at 15 cm in length and 5 cm in diameter. After relief of the intussusception, the mass was located about 40 cm from the ligament of Treitz. It was completely resected. Pathology showed a small bowel fragment containing a fungating mass measuring 6 x 6.5 x 5.9 cm. It was consistent with metastatic clear-cell renal cell carcinoma. The margins were uninvolved. She is seen for a follow-up visit. Postoperatively her hemoglobin dropped to 6.7 g, and she was transfused 2 units PRBC. She says she felt great for a week or 2 after the transfusion, but not so good since then. She has been under a lot of stress, as her suffered a stroke and he is recovering in a longterm. She says her energy is lousy and she has very limited activity. ECOG score is 2. She has good appetite. She has been gaining weight. She does not have fever or night sweats. She says her breathing is been okay. She has just occasional cough. She does not complain of chest pain. She has no GI complaints. She has ongoing problems with bladder control. She has some backslash hip pain, she says that has not been too bad. She does not complain of headache. She sometimes has balance problems. She has numbness/tingling in her legs and feet. She complains that her left leg is been swelling and that both legs feel heavy. Medications: AmLODIPine Besylate 1 (5 mg) Tablet Oral daily, Hydrocodone-Acetaminophen 1 Tablet (of 5-325 mg) Oral four times a day, Insulin Glargine 5 Units (of 100 Units/mL) Subcutaneous daily, Losartan Potassium 1 Tablet (of 100 mg) Oral daily, Pantoprazole Sodium 1 Tablet (of 40 mg) Tablet, enteric coated Oral daily, rOPINIRole HCl 1 Tablet (of 0.25 mg) Oral daily PRN, TraZODone HCl 1 (100 mg) Tablet Oral at bedtime PRN, Venlafaxine HCl 1 Tablet (of 150 mg) Oral daily Allergies: Gentamicin Vital Signs: Performed on Nov 04, 2020 12:31 Height - 62.00 in Weight - 198.8 lbs (LOW) BSA - 1.91 sq.m BMI - 36.36 (HIGH) Temperature - 98.2 F (LOW) Pulse - 60 /min Respiration - 18 /min BP - 181/70 mm(hg) (HIGH) O2 Sat - 97 % Pain - 0 Fatigue - 6 Physical Examination: Constitutional - She looks a little better generally, Eyes - Sclerae nonicteric. Conjunctivae clear, ENMT - No lesions noted in the oral cavity, Hematologic/Lymphatic - No cervical, clavicular, or axillary adenopathy, Respiratory - Lungs sound clear with diminished air movement bilaterally, Cardiovascular - Heart rhythm is regular. There is a II/ systolic murmur. There is no gallop or rub noted, Abdomen - Soft. The incision appears well-healed. Liver and spleen are not enlarged. There is no abdominal mass or ascites noted and there is no inguinal adenopathy, Extremities - No edema. There is swelling of the left leg and the left calf circumference measures 38.5 cm compared to 36.5 cm on the right, Neurologic - There are no focal neurologic deficits noted. Lab/Imaging: Her laboratory studies from 10/30/2020 included CBC showing hemoglobin 10.0 g, white blood cell count 7200, and platelet count 341,000. Her comprehensive metabolic profile showed stable renal function with BUN 33 and creatinine 1.5 mg/dL. Her bilirubin and liver enzymes were normal. LDH was normal 182 U/L. The serum iron studies did show low transferrin saturation at 11.8%. Problem List: 1. Clear-cell renal cell carcinoma, stage III (T3a, N0, M0) at initial diagnosis in 2012. She had subsequent progression to stage IV (M1) with development of pulmonary metastases. 2. She also is known to have multi nodular goiter. This includes two dominant nodules on the left side, the largest in the left inferior lobe measuring 2.[address] and 2.5 cm by ultrasound. It has appeared stable on the most recent studies, and a previous FNA done prior to the nephrectomy was benign. 3. She has been persistently anemic. This is likely to be multifactorial. Some component is almost certainly due to the renal cell carcinoma. She may still have a component of iron deficiency. Chronic kidney disease also could be a contributing factor. 4. Hypertension. 5. Type II diabetes. 6. Chronic kidney disease. 7. GERD. 8. Anxiety/depression. Problems Addressed with this Encounter and Plan: 1. Patient with clear cell renal cell carcinoma. Her disease was locally advanced at initial diagnosis. She underwent right open nephrectomy with renal vein thrombectomy on 06/27/2013. Pathology showed grade 4 clear cell carcinoma. The primary tumor measured 12.7 x 11.0 x 9.5 cm. 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 The renal vein margin was reported to be positive. Dr. Sheppard had indicated in his followup note that he felt it was highly unlikely that she had residual gross tumor, though pathology did report a positive renal vein margin. Her disease at that point appeared to be stage III (T3a, N0, M0). In January 2014 she underwent wedge resection of 3 pulmonary nodules. Two of these were metastatic renal cell cancer, one high-grade and one well differentiated. The other was a very small carcinoid tumor. Based on that, she had pathologically confirmed stage IV disease. She was without evidence of disease following the surgery. In February a surveillance CT scan showed a new pulmonary nodule near the left apex, consistent with metastasis. PET/CT showed low-grade FDG avidity in the nodule, but no other areas of abnormal uptake, consistent with a single site of metastatic involvement. She was then treated with SBRT which she completed in March 2015 to a total dose of [address] scans in March 2017 showed an enlarging pulmonary nodule in the lingula, suspicious for metastasis. She was referred to Dr. Osman. She underwent SBRT to the lingula lesion, completed on 05/06/2017 to a total dose of 4800 cGy. During follow-up there has been no further progression of pulmonary metastatic disease, but she had progressively worsening anemia and she ultimately was found on CT scan to have a persistent area of small bowel intussusception. A restaging PET/CT on 07/12/2020 showed relatively intense FDG activity in the central small bowel at the site of the intussusception. There were no other areas of abnormal uptake. On 10/07/2020 she underwent mini laparotomy with findings of intussusception associated with a jejunal mass. Partial small bowel resection and [id number] small bowel anastomosis. Pathology showed metastatic clear-cell renal cell carcinoma, completely resected. The patient has stage IV disease, but with all known sites of involvement having either been resected or treated with SBRT. In the absence of any evidence of active disease, she will remain on observation/expectant management. She will be scheduled for a follow-up visit in 1 month. 2. She has persistent swelling in her left leg following the surgery, and she will need to be evaluated with a venous Doppler study. She will have further evaluation as indicated. Signed By: Diogenes Ruiz M.D. <<Signature on File>>
== END 2020-11-04 06:01 | disposition home or self-care (01) ==
LOC: ONCMED 06:04
PROVIDERS: PCP Internal Medicine; Visit Provider Internal Medicine Medical Oncology
DX: C64.1 Malignant neoplasm of right kidney, except renal pelvis (principal); C78.4 Secondary malignant neoplasm of small intestine; C78.01 Secondary malignant neoplasm of right lung; C78.02 Secondary malignant neoplasm of left lung; M79.89 Other specified soft tissue disorders; I12.9 Hypertensive chronic kidney disease with stage 1 through stage 4 chronic kidney disease, or unspecified chronic kidney disease; N18.9 Chronic kidney disease, unspecified; D63.8 Anemia in other chronic diseases classified elsewhere; D63.0 Anemia in neoplastic disease; Z90.5 Acquired absence of kidney; Z90.49 Acquired absence of other specified parts of digestive tract; Z92.3 Personal history of irradiation
CPT/HCPCS: 99214

== ENCOUNTER 2020-11-10 09:37 | Outpatient (CLI) | payer MEDICARE, OTHER, SELFPAY ==
--- NOTE | 2020-11-10 | USCV_ITS ---
LE Venous Duplex BILATERAL Angelika Sanchez Age: 75 Gender: F : 1945 Exam Date: 11/10/2020 09:55 Ordering Phys: Diogenes Ruiz MD Technologist: Randi Lo Exam Location: [facility] [place] Indication: PAINFUL LEGS HISTORY: PT HAS SWOLLEN AND PAINFUL LEGS. PROCEDURES: The venous duplex Doppler examination of both lower extremities was performed in the standard fashion. The following venous structures were evaluated: common femoral vein, profunda vein, proximal portion of the greater saphenous vein, superficial femoral vein, and the popliteal vein. In addition, the posterior tibial and peroneal trunk were evaluated. Serial compression, augmentation maneuvers, and spectral Doppler flow evaluation were performed. FINDINGS: Normal 2-D Doppler and augmentation and compressibility throughout the lower extremity venous structures. Additional imaging through the proximal calf veins also reveals no thrombus. Limited evaluation of the greater saphenous vein is patent with no thrombus.. CONCLUSIONS No DVT bilateral lower extremities. Dr. Marilou Olivares DO (Electronically Signed) Final Date: 10 November 2020 10:47 S
== END 2020-11-10 09:38 | disposition home or self-care (01) ==
LOC: RAD 09:42
PROVIDERS: PCP Internal Medicine Medical Oncology; Visit Provider Internal Medicine Medical Oncology
DX: M79.604 Pain in right leg (principal); M79.605 Pain in left leg; M79.89 Other specified soft tissue disorders
CPT/HCPCS: 93970; 93971

== ENCOUNTER → 2020-11-13 14:30 | Outpatient (BNVA) | payer MEDICARE, OTHER, SELFPAY | PROVIDERS: PCP Internal Medicine Medical Oncology; Visit Provider Internal Medicine | DX: E11.22 Type 2 diabetes mellitus with diabetic chronic kidney disease (principal); N18.4 Chronic kidney disease, stage 4 (severe); E11.42 Type 2 diabetes mellitus with diabetic polyneuropathy; E66.9 Obesity, unspecified | CPT/HCPCS: 99214 ==

== ENCOUNTER 2020-12-16 07:35 | Outpatient (CLI) | payer MEDICARE, OTHER, SELFPAY ==
[2020-12-16 07:57] LABS: Basophils % 0.7 %; Eosinophils # 0.4 10^3/uL (0.0-0.8); Eosinophils % 5.8 %; Hematocrit 37.1 % (37.0-47.0); Hemoglobin 10.9 g/dL (11.5-15.3); Lymphocytes % 17.2 %; Mean Corpuscular HGB Conc 29.4 g/dL (30.0-36.0); Mean Corpuscular Volume 88.3 fL (81-99); Monocytes # 0.5 10^3/uL (0.2-0.9); Monocytes % 8.9 %; Neutrophils # 4.05 10^3/uL (1.8-7.7); Neutrophils % 67.1 %; Nucleated Red Blood Cells % 0 %; Platelet Count 306 10^3/cmm (130-400); Red Cell Distribution Width 17.1 % (12.1-15.1)
[2020-12-16 08:14] LABS: Alanine Aminotransferase 8 U/L (0-33); Albumin Level 3.8 g/dL (3.5-5.2); Alkaline Phosphatase 91 IU/L (35-105); Aspartate Amino Transferase 11 U/L (0-32); Blood Urea Nitrogen 28 mg/dL (8-23); Calcium 8.6 mg/dL (8.5-10.5); Carbon Dioxide 26 mmol/L (22-29); Chloride 102 mmol/L (98-107); Ferritin 157 ng/mL (15-150); Globulin 2.8 g/dL (1.3-4.6); Glucose 109 mg/dL (65-115); Iron 35 ug/dL (37-145); Lactate Dehydrogenase 161 U/L (135-214); Osmolality Calculated 288 mOsm/kg (285-295); Percent Saturation 13.7 % (20-50); Sodium 136 mmol/L (136-145); Total Bilirubin 0.2 mg/dL (0.15-1.2); Total Iron Binding Capacity 255 mcg/dl; Total Protein 6.6 g/dL (6.6-8.7); Unsaturated Iron Binding 220 ug/dL (112-347)
[2020-12-16 08:45] LABS: Erythrocyte Sedimentation Rate 49 mm/hr (0-15)
== END 2020-12-16 07:48 | disposition home or self-care (01) ==
LOC: ONCMED 12-17 08:44
PROVIDERS: Visit Provider Internal Medicine Medical Oncology
DX: C64.1 Malignant neoplasm of right kidney, except renal pelvis (principal); C7A.090 Malignant carcinoid tumor of the bronchus and lung; C78.01 Secondary malignant neoplasm of right lung; C78.02 Secondary malignant neoplasm of left lung; C78.4 Secondary malignant neoplasm of small intestine; N18.30 Chronic kidney disease, stage 3 unspecified; D50.9 Iron deficiency anemia, unspecified; F41.9 Anxiety disorder, unspecified; F32.9 Major depressive disorder, single episode, unspecified; I10 Essential (primary) hypertension; K21.9 Gastro-esophageal reflux disease without esophagitis; Z79.899 Other long term (current) drug therapy
CPT/HCPCS: 80053; 82728; 83540; 83550; 83615; 85025; 85651

== ENCOUNTER 2020-12-17 08:13 | Outpatient (CLI) | payer MEDICARE, OTHER, SELFPAY ==
[2020-12-17] MEDS: ferric carboxy (IVPB) 750 MG in sodium chloride 0.9% (100 ml) 100 ML 460 MG IV (16:20)
--- NOTE | 2020-12-17 17:44 | ONC FU_ITS ---
Dr. Ruiz Patient Follow-Up Note Patient: Angelika Sanchez Unit #: [id number]: 1945 Dicatated By: Diogenes Ruiz M.D.Date of Visit:December 17, 2020 Onc Med Follow-up/Prog Note Chief Complaint: Anemia/renal cell cancer. History of Present Illness: This is a 75 year-old woman wtih metastatic renal cell cancer. She also has mild to moderately severe anemia. I had initially seen in November 2012 with persistent anemia following an episode of tularemia the preceding fall. She had been in good health until March of 2012 when she came down with a high fever. She said she had never been so sick in her life. The illness was associated with a sore in the area of the left axilla. She ultimately was determined to have and was treated for tularemia. She did show some gradual improvement with treatment, but she never actually got better, and her laboratory studies showed persistent anemia and elevated sed rate. She failed to improve with parenteral iron replacement and with retreatment of the tularemia. Abdominal CT scan in May 2013 showed a large right renal mass consistent with renal cell carcinoma. There was suspected invasion of the right renal vein. A small right upper lobe pulmonary nodule was indeterminate. She also was noted to have a 2.3 x 1.6 cm nodule in the left lobe of the thyroid. There was no other obvious metastatic disease. She underwent right nephrectomy on 06/27/13. Pathology showed grade 4 clear cell carcinoma. The tumor measured 12.7 x 11.0 x 9.5 cm. There was gross extension into the renal vein, and the renal vein margin was noted to be positive. All other surgical margins were negative. One hilar lymph node was negative. Pathologic staging was pT3a, pN0. She indicates that prior to the nephrectomy, she did see an composition roll maker and cutter, and biopsy of the thyroid nodule reportedly was benign. She did develop a wound infection, but that subsequently resolved. Her postoperative course was unremarkable. A followup CT scan in August 2013 showed no significant change in the right upper lobe pulmonary nodule. A right middle lobe nodule also was reported on that study. It measured only 2 to 3 mm, and it was noted to be unchanged. However, repeat CT scans in November 2013 did show a significant increase in the right upper lobe nodule. The small right middle lobe nodule and another small nodule in the right lower lobe appeared stable or perhaps slightly increased. At that point she was referred to Dr. Coates. On 01/14/2014 she underwent right thoracotomy with wedge resection of all 3 pulmonary nodules. Pathology on the right upper lobe nodule showed a high-grade metastatic renal cell carcinoma measuring 1.4 x 1.3 cm. The right middle lobe nodule was a well differentiated neuroendocrine tumor (carcinoid tumor) measuring 4 x 3 mm. The right lower lobe nodule was a more well differentiated metastatic renal cell carcinoma. During recovery she had some issues with blood pressure control and with lower extremity edema, but she otherwise recovered uneventfully. On a scheduled surveillance CT scan in February 2015, she was found to have a new 7.4 mm irregular nodule at the apex of the left lung. It was felt to be suspicious for a primary tumor or metastatic disease. There were no other suspicious findings at that time. Further evaluation with PET/CT showed low-grade FDG uptake in the nodule with SUV 1.5. It was felt to be consistent with metastatic disease. There were no other areas of abnormal uptake on that study. As the findings were felt to be consistent with a single site of additional metastatic involvement, she was referred to Dr. Osman for SBRT. She completed treatment on 03/31/2015 to a total dose of 4800 cGy, delivered in 4 fractions of 1200 cGy. Follow-up PET/CT on 06/28/2015 showed a residual FDG negative nodule measuring 3 mm consistent with positive response to therapy. There was no evidence of any new metastatic disease on that study. Surveillance chest CT on 12/30/2016 showed postsurgical changes in the right thorax with no evidence of recurrence on the right. There was a new 5 mm nodule noted in the lingula, indeterminate for an early metastatic site. Her follow-up CT scans of the chest, abdomen, and pelvis on 04/12/2017 showed increase in the size of the nodule in the lingula to 6.8 mm compared to 4.4 mm in December. There was stable scarring in the left upper lobe. There were no new pulmonary parenchymal nodules. A 2 cm left thyroid lobe nodule appeared stable. There was no evidence of recurrence or metastatic involvement in the abdomen/pelvis. She was referred to Dr. Osman, and she underwent SBRT to the lesion in the lingula, completed on 05/06/2017 to a total dose of 4800 cGy. She tolerated it well. Her repeat chest CT on 06/30/2017 showed stable 7 mm nodule in the lingula. There was biapical fibrosis, worse the left upper lobe. Restaging CT scans of the chest, abdomen, and pelvis on 11/29/2017 showed further increase in the size of the lingular opacity, measuring 12 mm. The findings were felt to be consistent with metastatic lesion versus postradiation changes. There was stable scar at the left lung apex. There was evidence of hepatic steatosis. There was no evidence of any new metastatic disease. Chest CT on 03/01/2018 showed left apical focal parenchymal nodule measuring 9.1 x 16 mm, felt to be most likely due to scarring and similar to the previous study. Right upper lobe parenchymal scarring also appeared unchanged. There was interval decreased density of the lingula focal opacities, felt to probably represent resolving infectious or inflammatory process. She then continued on observation/expectant management for the renal cell cancer. As of August [address] scans had shown no evidence of disease progression. Her other medical illnesses include hypertension, stage III chronic kidney disease, type 2 diabetes, GERD, and chronic anxiety/depression. She has a history of smoking 2 packs of cigarettes daily for 29 years. She quit smoking in the early . INTERIM HISTORY: A restaging PET/CT on 12/23/2018 showed a 1.2 x 1.7 cm left upper lobe nodule without significant FDG activity. The appearance was consistent with scarring. Right upper lobe scarring was also FDG negative. There were no areas of abnormal uptake on that study. At that point she had become mildly anemic again. Her B12 level was normal. Her serum iron studies from 03/21/2019 showed low transferrin saturation at 18.3%, suggesting possible iron deficiency. Her repeat chest CT on 06/18/2019 showed stable appearance of the irregular nodular focus in the left upper lobe, measuring 10 x 24 mm. Postoperative changes in the right upper and middle lobes appeared stable, as did the appearance of the lingular subsegmental atelectasis or scarring. A 2.2 cm left thyroid lobe nodule also appeared stable. Overall, there was no evidence of disease progression. As of 06/28/2019 there was further decrease in the hemoglobin to 10.9 g with the transferrin saturation further decreased to 15%. At that point she did start an oral iron supplement. She continued on observation/expectant management for the renal cell cancer. As of September 2019 there was further decrease in the hemoglobin to 9.5 g, and at that point she was given parenteral iron replacement with a single infusion of Injectafer. She received a second infusion on 11/13/2019. Initially there was a slight increase in the hemoglobin/hematocrit levels, but they had subsequently declined. Restaging CT scans on 04/25/2020 showed no evidence for metastatic disease or interval change within the chest, abdomen, or pelvis. The irregular opacification in the left upper lobe appeared stable. A right basilar nodule noted on the January study had resolved. There was evidence for hepatic steatosis and there appeared to be transient intussusception of small bowel in the left abdomen. Restaging PET/CT on 07/12/2020 showed unchanged, FDG negative left apical pulmonary nodule. Right upper lobe scarring also was FDG negative and appeared stable. There was relatively intense FDG activity in the central small bowel with CT evidence for intussusception. There were no other areas of abnormal uptake. With those findings she was referred to Dr. Cagle. She had further evaluation with upper GI and small bowel x-ray on 08/29/2020. On 10/07/2020 she underwent diagnostic laparoscopy followed by mini laparotomy with partial small bowel resection and [id number] small bowel anastomosis. She was found to have a mass occupying the proximal jejunal loop estimated at 15 cm in length and 5 cm in diameter. After relief of the intussusception, the mass was located about 40 cm from the ligament of Treitz. It was completely resected. Pathology showed a small bowel fragment containing a fungating mass measuring 6 x 6.5 x 5.9 cm. It was consistent with metastatic clear-cell renal cell carcinoma. The margins were uninvolved. Her postoperative course was complicated by worsening anemia, requiring PRBC transfusion. However, at her follow-up visit on 11/04/2020, she was showing clinical improvement in her hemoglobin was adequate at 10.0 g. She is seen for a follow-up visit. She continues to complain that she feels tired. She has limited activity. Her ECOG score is 2. She also complains that everything is fuzzy and that she is not thinking clearly. She is having significant issues with short-term memory. She has been under a lot of stress because of her 's illness and his having to be in the [facility]. She has good appetite and she has been gaining weight. She does not have fever or night sweats. She complains that her vision has been blurry. Her breathing has been okay, though as noted she does have very limited activity. She does not complain of cough and she has not been having chest pain. She Chloe has no GI complaints. She has overactive bladder. She has back/sciatic pain in her knees have started hurting again. She reports having dull headache and she also has dizziness. She has numbness/tingling in both legs, left worse than right. Medications: AmLODIPine Besylate 1 (5 mg) Tablet Oral daily, Hydrocodone-Acetaminophen 1 Tablet (of 5-325 mg) Oral four times a day, Insulin Glargine 5 Units (of 100 Units/mL) Subcutaneous daily, Losartan Potassium 1 Tablet (of 100 mg) Oral daily, Pantoprazole Sodium 1 Tablet (of 40 mg) Tablet, enteric coated Oral daily, rOPINIRole HCl 1 Tablet (of 0.25 mg) Oral daily PRN, TraZODone HCl 1 (100 mg) Tablet Oral at bedtime PRN, Venlafaxine HCl 1 Tablet (of 150 mg) Oral daily Allergies: Gentamicin Vital Signs: Performed on December 17, 2020 15:36 Height - 62.00 in Weight - 202 lbs (HIGH) BSA - 1.92 sq.m BMI - 36.95 (HIGH) Temperature - 99.4 F (HIGH) Pulse - 60 /min Respiration - 18 /min BP - 191/63 mm(hg) (HIGH) O2 Sat - 97 % Pain - 3 Fatigue - 7 Physical Examination: Constitutional - She still appears somewhat weak generally, Eyes - Sclerae nonicteric. Conjunctivae clear, ENMT - No lesions noted in the oral cavity, Hematologic/Lymphatic - No cervical, clavicular, or axillary adenopathy, Respiratory - Lungs are clear with some decrease in air movement bilaterally, Cardiovascular - Heart rhythm is regular. There is a II/ systolic murmur. There is no gallop or rub noted, Abdomen - Moderately distended but soft. Liver and spleen are not enlarged. There is no abdominal mass or ascites noted and there is no inguinal adenopathy, Extremities - Mild edema on the left, Neurologic - There are no focal neurologic deficits noted. Lab/Imaging: CBC shows hemoglobin up to 10.9 g with white blood cell count 6000 and platelet count 306,000. Her sed rate is down to 49 mm/h. Comprehensive metabolic profile shows stable renal function with BUN 28 and creatinine 1.6 mg/dL. Bilirubin and liver enzymes are normal. Her serum iron studies show low transferrin saturation at 13.7%. Problem List: 1. Clear-cell renal cell carcinoma, stage III (T3a, N0, M0) at initial diagnosis in 2012. She had subsequent progression to stage IV (M1) with development of pulmonary metastases. 2. She also is known to have multi nodular goiter. This includes two dominant nodules on the left side, the largest in the left inferior lobe measuring 2.[address] and 2.5 cm by ultrasound. It has appeared stable on the most recent studies, and a previous FNA done prior to the nephrectomy was benign. 3. She has been persistently anemic. This is likely to be multifactorial. Some component is almost certainly due to the renal cell carcinoma. She may still have a component of iron deficiency. Chronic kidney disease also could be a contributing factor. 4. Hypertension. 5. Type II diabetes. 6. Chronic kidney disease. 7. GERD. 8. Anxiety/depression. Problems Addressed with this Encounter and Plan: 1. Patient with clear cell renal cell carcinoma. Her disease was locally advanced at initial diagnosis. She underwent right open nephrectomy with renal vein thrombectomy on 06/27/2013. Pathology showed grade 4 clear cell carcinoma. The primary tumor measured 12.7 x 11.0 x 9.5 cm. 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 The renal vein margin was reported to be positive. Dr. Sheppard had indicated in his followup note that he felt it was highly unlikely that she had residual gross tumor, though pathology did report a positive renal vein margin. Her disease at that point appeared to be stage III (T3a, N0, M0). In January 2014 she underwent wedge resection of 3 pulmonary nodules. Two of these were metastatic renal cell cancer, one high-grade and one well differentiated. The other was a very small carcinoid tumor. Based on that, she had pathologically confirmed stage IV disease. She was without evidence of disease following the surgery. In February a surveillance CT scan showed a new pulmonary nodule near the left apex, consistent with metastasis. PET/CT showed low-grade FDG avidity in the nodule, but no other areas of abnormal uptake, consistent with a single site of metastatic involvement. She was then treated with SBRT which she completed in March 2015 to a total dose of [address] scans in March 2017 showed an enlarging pulmonary nodule in the lingula, suspicious for metastasis. She was referred to Dr. Osman. She underwent SBRT to the lingula lesion, completed on 05/06/2017 to a total dose of 4800 cGy. During follow-up there has been no further progression of pulmonary metastatic disease, but she had progressively worsening anemia and she ultimately was found on CT scan to have a persistent area of small bowel intussusception. A restaging PET/CT on 07/12/2020 showed relatively intense FDG activity in the central small bowel at the site of the intussusception. There were no other areas of abnormal uptake. On 10/07/2020 she underwent mini laparotomy with findings of intussusception associated with a jejunal mass. Partial small bowel resection and [id number] small bowel anastomosis. Pathology showed metastatic clear-cell renal cell carcinoma, completely resected. At her followup visit on 11/02/2020 she was showing clinical improvement. With all of her known sites of involvement having either been resected or treated with SBRT, I opted to continue with observation/expectant management. She returns now with continued complaints of fatigue and also with increased FIBERGLASS FABRICATOR symptoms, including cognitive dysfunction and memory loss. It is uncertain to what extent this may be due to the renal cell cancer. At this point I think she should have FIBERGLASS FABRICATOR imaging, but that is going to be problematic due to her underlying chronic kidney disease. 2. She has had persistent anemia. It has shown some improvement following her surgery in September, but she remains moderately anemic. As her serum iron studies continue to show low transferrin saturation, I will give her another course of parenteral iron replacement with Injectafer. I will recheck her blood count and serum iron studies with her next visit, check will be at a 1-month interval. Signed By: Diogenes Ruiz M.D. <<Signature on File>>
[2020-12-17 17:57] LABS: Vitamin B12 284 pg/mL (232-1245)
== END 2020-12-17 08:14 | disposition home or self-care (01) ==
LOC: ONCMED 08:15
PROVIDERS: Visit Provider Internal Medicine Medical Oncology
DX: C64.1 Malignant neoplasm of right kidney, except renal pelvis (principal); C78.01 Secondary malignant neoplasm of right lung; C78.02 Secondary malignant neoplasm of left lung; D50.9 Iron deficiency anemia, unspecified; E11.22 Type 2 diabetes mellitus with diabetic chronic kidney disease; N18.9 Chronic kidney disease, unspecified; I10 Essential (primary) hypertension; K21.9 Gastro-esophageal reflux disease without esophagitis; F41.9 Anxiety disorder, unspecified; F32.9 Major depressive disorder, single episode, unspecified; Z79.899 Other long term (current) drug therapy
CPT/HCPCS: 82607; 96365; 99214; J1439

== ENCOUNTER 2020-12-24 06:25 | Outpatient (CLI) | payer MEDICARE, OTHER, SELFPAY ==
[2020-12-24] MEDS: ferric carboxy (IVPB) 750 MG in sodium chloride 0.9% (100 ml) 100 ML 460 MG IV (14:28)
== END 2020-12-24 06:26 | disposition home or self-care (01) ==
LOC: ONCMED 06:29
PROVIDERS: Visit Provider Internal Medicine Medical Oncology
DX: D50.9 Iron deficiency anemia, unspecified (principal)
CPT/HCPCS: 96365; J1439

== ENCOUNTER 2021-01-05 11:30 | Outpatient (CLI) | payer MEDICARE, OTHER, SELFPAY ==
--- NOTE | 2021-01-05 11:41 | MR_ITS ---
WS: [id number] MRI BRAIN WITHOUT CONTRAST HISTORY: RENAL CELL Cancer; memory Loss; cognitive DYSFUNCTION, RIGHT nephrectomy. Study was performed without contrast as patient's renal function was abnormal. GFR was abnormal. COMPARISON: 06/06/2013 TECHNIQUE: Diffusion imaging, multiplanar T1, T2 and FLAIR imaging obtained. No evidence for acute infarct or hemorrhage. Burnham-white matter differentiation is normal. Moderate progression of significant chronic white matter ischemic changes. There are numerous T2 and FLAIR signal hyperintensities throughout the white matter. Both end of the periventricular subcortica l white matter distribution. A few foci of increased signal are noted within the LEFT catrachito. Moderate progression of white matter lesion since 2012. Ventricles and extra-axial spaces are normal. No inferior displacement of cerebellar tonsils. The sella turcica and pituitary gland are unremarkabl e. Posterior fossa is also unremarkable. Dural venous sinuses and [place] demonstrate no abnormality on this unenhanced studies. Paranasal sinuses: Clear. Mastoid air cells: Normal. Calvarium and scalp: Intact. MR/MR head wo con* [id number] IMPRESSION: 1. Moderate progression of microvascular ischemic type changes since 2012. 2. No acute infarct. 3. No areas of significant edema within the brain. Due to patient's abnormal r enal function no contrast was given. Also patient has a history of a prior neph rectomy.
== END 2021-01-05 11:31 | disposition home or self-care (01) ==
LOC: RADSHAW 11:36
PROVIDERS: Visit Provider Internal Medicine Medical Oncology
DX: C78.4 Secondary malignant neoplasm of small intestine (principal); C78.01 Secondary malignant neoplasm of right lung; C78.02 Secondary malignant neoplasm of left lung
CPT/HCPCS: 70551

== ENCOUNTER 2021-01-16 08:55 | Outpatient (CLI) | payer MEDICARE, OTHER, SELFPAY ==
--- NOTE | 2021-01-16 09:04 | CT_ITS ---
WS: [id number] CT CHEST, ABDOMEN AND PELVIS WITHOUT CONTRAST. HISTORY: RENAL CELL CANCER TECHNIQUE: Contiguous 5 mm axial imaging performed through the chest, abdomen and pelvis without IV c ontrast, oral contrast has been provided. Coronal and sagittal reformats chest. Coronal and sagittal reformats through the abdomen and pelvis. All CT scans at [facility] use at least one of these dose optimization techniques: automated exposure control; mA and/or kV adjustment per patient s ize (includes targeted exams where dose is matched to clinical indication); or iterative reconstructi on. CONTRAST: None DLP: 1537.28 mGycm COMPARISON: 04/25/2020 and 01/25/[address]: Stable postoperative changes involving the RIGHT upper thorax. There is linear scarring whi ch is stable. Mild bronchial wall thickening centrally with no new abnormality. Irregular opacificati on at the LEFT apex is stable measuring 10 x 15 mm with adjacent pleural thickening and scarring. The re is an additional area of increased opacification and adjacent nodule towards the lingula which is been stable also over several prior examinations. No new mass or nodule. Normal size aorta and pulmon edna artery. No mediastinal or hilar adenopathy. Oral contrast is within the mid to distal esophagus f rom reflux disease. No pericardial or pleural effusion. Mild increase in thoracic kyphosis. Multileve l degenerative disc space narrowing. Abdomen CT: New attenuation differences within the LEFT medial and lateral segments of the liver. The re are decreased areas of attenuation with the largest towards the diaphragm measuring 4.5 x 4.1 cm. Additional area just to the RIGHT of the falciform ligament measuring 3.2 x 3.9 cm. These are new are as of abnormality suspicious for metastatic sites. Gallbladder, pancreas, spleen, adrenal gland and L EFT kidney are negative. Postoperative changes and RIGHT nephrectomy. No recurrent mass at the nephre ctomy site. No adenopathy within the abdomen. Mild atherosclerosis of the aorta. Postsurgical changes along the anterior abdominal wall. There is soft tissue skin thickening which is new since 04/25/2020 along the anterior abdominal wall suggests soft tissue near the umbilicus. This was also not present on the PET/CT of 07/12/2020. There is a new soft tissue thickening and lobulati on involving the omentum of the abdominal cavity at the level of the umbilicus. Soft tissue nodularit y extends to the LEFT and RIGHT of the midline. The largest nodularity measures 5.7 x 1.8 cm on the R IGHT. This is contiguous with the changes extending through the anterior abdominal wall. There is al so partial involvement of the adjacent small bowel. No GI tract obstruction. Mild duodenal mucosal thickening. Pelvic CT: No free fluid. No adenopathy in the pelvis. 8 mm anterolisthesis of L5 due to bilateral pars defects. No osteoblastic or osteolytic bone disease identified. CT/CT chest abd pel wo con IMPRESSION: 1. New attenuation differences in the liver highly suspicious for metastatic l esions. The largest measures 4.5 x 4.1 cm. Recommend further evaluation. Furthe r evaluation can be performed with postcontrast CT evaluation, ultrasound or PE T/CT imaging. 2. New additional soft tissue thickening along the anterior abdominal wall at the level of the umbilicus and in the peritoneal cavity along the omentum with extension to the adjacent small bowel loops. Highly suspicious for metastatic d isease. This can also be further evaluated by PET/CT imaging. Please note the P ET/CT from 07/04/2020 was negative. 3. Postoperative changes in the RIGHT thorax and the stable postoperative scar ring and opacifications at the LEFT apex are unchanged. 4. No mediastinal adenopathy. 5. Prior RIGHT nephrectomy with no recurrent mass or adenopathy in the renal b ed. Notified Diogenes Ruiz MD at 01/16/2021 11:54 AM.
[2021-01-16] MEDS: iohexol 300 mg/mL 50 mL Btl PO (09:56)
== END 2021-01-16 08:56 | disposition home or self-care (01) ==
LOC: RADWPI 09:00
PROVIDERS: Visit Provider Internal Medicine Medical Oncology
DX: C64.9 Malignant neoplasm of unspecified kidney, except renal pelvis (principal); Z90.5 Acquired absence of kidney
CPT/HCPCS: 71250; 74176; Q9967

== ENCOUNTER 2021-01-20 06:43 | Outpatient (CLI) | payer MEDICARE, OTHER, SELFPAY ==
[2021-01-20 16:11] LABS: Basophils % 0.5 %; Eosinophils # 0.3 10^3/uL (0.0-0.8); Eosinophils % 3.6 %; Hematocrit 39.7 % (37.0-47.0); Hemoglobin 12.4 g/dL (11.5-15.3); Lymphocytes % 12.6 %; Mean Corpuscular HGB Conc 31.2 g/dL (30.0-36.0); Mean Corpuscular Hemoglobin 27.7 pg (28.0-34.0); Mean Corpuscular Volume 88.8 fL (81-99); Mean Platelet Volume 10.8 fL (7.4-10.4); Monocytes # 0.7 10^3/uL (0.2-0.9); Neutrophils # 6.14 10^3/uL (1.8-7.7); Neutrophils % 75.2 %; Nucleated Red Blood Cells % 0 %; Platelet Count 277 10^3/cmm (130-400); Red Blood Count 4.47 10^6/uL (4.1-5.3); Red Cell Distribution Width 18.2 % (12.1-15.1); White Blood Count 8.2 10^3/uL (4.0-10.0)
[2021-01-20 16:53] LABS: Alanine Aminotransferase 7 U/L (0-33); Albumin Level 3.8 g/dL (3.5-5.2); Alkaline Phosphatase 100 IU/L (35-105); Anion Gap 16.3 (5-19); Aspartate Amino Transferase 12 U/L (0-32); Blood Urea Nitrogen 36 mg/dL (8-23); Calcium 8.9 mg/dL (8.5-10.5); Carbon Dioxide 24 mmol/L (22-29); Chloride 101 mmol/L (98-107); Globulin 3.3 g/dL (1.3-4.6); Glucose 113 mg/dL (65-115); Iron 52 ug/dL (37-145); Lactate Dehydrogenase 164 U/L (135-214); Osmolality Calculated 291 mOsm/kg (285-295); Percent Saturation 22.5 % (20-50); Potassium 5.3 mmol/L (3.5-5.1); Sodium 136 mmol/L (136-145); Total Bilirubin 0.2 mg/dL (0.15-1.2); Total Iron Binding Capacity 231 mcg/dl; Total Protein 7.1 g/dL (6.6-8.7); Unsaturated Iron Binding 179 ug/dL (112-347)
[2021-01-20 17:43] LABS: Erythrocyte Sedimentation Rate 50 mm/hr (0-15)
== END 2021-01-20 06:44 | disposition home or self-care (01) ==
LOC: ONCMED 06:44
PROVIDERS: Visit Provider Internal Medicine Medical Oncology
DX: C64.1 Malignant neoplasm of right kidney, except renal pelvis (principal); C78.01 Secondary malignant neoplasm of right lung; C78.02 Secondary malignant neoplasm of left lung; D63.0 Anemia in neoplastic disease; Z79.899 Other long term (current) drug therapy
CPT/HCPCS: 36415; 80053; 83540; 83550; 83615; 85025; 85651

== ENCOUNTER 2021-01-21 06:28 | Outpatient (CLI) | payer MEDICARE, OTHER, SELFPAY ==
--- NOTE | 2021-01-21 19:58 | ONC FU_ITS ---
Dr. Ruiz Patient Follow-Up Note Patient: Angelika Sanchez Unit #: [id number]: 1945 Dicatated By: Diogenes Ruiz M.D.Date of Visit:Jan 21, 2021 Onc Med Follow-up/Prog Note Chief Complaint: Anemia/renal cell cancer. History of Present Illness: This is a 75 year-old woman wtih metastatic renal cell cancer. She also has mild to moderately severe anemia. I had initially seen in November 2012 with persistent anemia following an episode of tularemia the preceding fall. She had been in good health until March of 2012 when she came down with a high fever. The illness was associated with a sore in the area of the left axilla. She ultimately was determined to have and was treated for tularemia. She did show some gradual improvement with treatment, but she never actually got better, and her laboratory studies showed persistent anemia and elevated sed rate. She failed to improve with parenteral iron replacement and with retreatment of the tularemia. Abdominal CT scan in May 2013 showed a large right renal mass consistent with renal cell carcinoma. There was suspected invasion of the right renal vein. A small right upper lobe pulmonary nodule was indeterminate. She also was noted to have a 2.3 x 1.6 cm nodule in the left lobe of the thyroid. There was no other obvious metastatic disease. She underwent right nephrectomy on 06/27/2013. Pathology showed grade 4 clear cell carcinoma. The tumor measured 12.7 x 11.0 x 9.5 cm. There was gross extension into the renal vein, and the renal vein margin was noted to be positive. All other surgical margins were negative. One hilar lymph node was negative. Pathologic staging was pT3a, pN0. Prior to the nephrectomy she had seen an contract driver, and biopsy of the thyroid nodule reportedly was benign. She was followed expectantly. A repeat CT scan in August 2013 showed no significant change in the right upper lobe pulmonary nodule. A right middle lobe nodule also was reported on that study. It measured only 2 to 3 mm, and it was noted to be unchanged. However, repeat CT scans in November 2013 did show a significant increase in the right upper lobe nodule. The small right middle lobe nodule and another small nodule in the right lower lobe appeared stable or perhaps slightly increased. At that point she was referred to Dr. Coates. On 01/14/2014 she underwent right thoracotomy with wedge resection of all 3 pulmonary nodules. Pathology on the right upper lobe nodule showed a high-grade metastatic renal cell carcinoma measuring 1.4 x 1.3 cm. The right middle lobe nodule was a well differentiated neuroendocrine tumor (carcinoid tumor) measuring 4 x 3 mm. The right lower lobe nodule was a more well differentiated metastatic renal cell carcinoma. During recovery she had some issues with blood pressure control and with lower extremity edema, but she otherwise recovered uneventfully. On a scheduled surveillance CT scan in February 2015, she was found to have a new 7.4 mm irregular nodule at the apex of the left lung. It was felt to be suspicious for a primary tumor or metastatic disease. There were no other suspicious findings at that time. Further evaluation with PET/CT showed low-grade FDG uptake in the nodule with SUV 1.5. It was felt to be consistent with metastatic disease. There were no other areas of abnormal uptake on that study. As the findings were felt to be consistent with a single site of additional metastatic involvement, she was referred to Dr. Osman for SBRT. She completed treatment on 03/31/2015 to a total dose of 4800 cGy, delivered in 4 fractions of 1200 cGy. Follow-up PET/CT on 06/28/2015 showed a residual FDG negative nodule measuring 3 mm consistent with positive response to therapy. There was no evidence of any new metastatic disease on that study. Surveillance chest CT on 12/30/2016 showed postsurgical changes in the right thorax with no evidence of recurrence on the right. There was a new 5 mm nodule noted in the lingula, indeterminate for an early metastatic site. Her follow-up CT scans of the chest, abdomen, and pelvis on 04/12/2017 showed increase in the size of the nodule in the lingula to 6.8 mm compared to 4.4 mm in December. There was stable scarring in the left upper lobe. There were no new pulmonary parenchymal nodules. A 2 cm left thyroid lobe nodule appeared stable. There was no evidence of recurrence or metastatic involvement in the abdomen/pelvis. She was referred to Dr. Osman, and she underwent SBRT to the lesion in the lingula, completed on 05/06/2017 to a total dose of 4800 cGy. She tolerated it well. She was then continued expectant management. She had ongoing complaints of fatigue and she continued to have fairly marginal performance status. As of her follow-up visit in August 2018 there has been no evidence of disease progression on her surveillance CT scans. A restaging PET/CT on 12/23/2018 showed a 1.2 x 1.7 cm left upper lobe nodule without significant FDG activity. The appearance was consistent with scarring. Right upper lobe scarring was also FDG negative. There were no areas of abnormal uptake on that study. At that point she had become mildly anemic again. Her B12 level was normal. Her serum iron studies from 03/21/2019 showed low transferrin saturation at 18.3%, suggesting possible iron deficiency. During subsequent follow-up, her anemia continued to gradually worsen despite parenteral iron replacement, and she also was noted to have a significantly elevated sed rate. The findings were suspicious for recurrence of the renal cell cancer. As of April [address] scans showed no evidence of new or progressed metastatic disease, but there was evidence of transient intussusception of the small bowel in the left abdomen. Restaging PET/CT on 07/12/2020 showed unchanged, FDG negative left apical pulmonary nodule. Right upper lobe scarring also was FDG negative and appeared stable. There was relatively intense FDG activity in the central small bowel with CT evidence for intussusception. There were no other areas of abnormal uptake. With those findings she was referred to Dr. Cagle. She had further evaluation with upper GI and small bowel x-ray on 08/29/2020. On 10/07/2020 she underwent diagnostic laparoscopy followed by mini laparotomy with partial small bowel resection and [id number] small bowel anastomosis. She was found to have a mass occupying the proximal jejunal loop estimated at 15 cm in length and 5 cm in diameter. After relief of the intussusception, the mass was located about 40 cm from the ligament of Treitz. It was completely resected. Pathology showed a small bowel fragment containing a fungating mass measuring 6 x 6.5 x 5.9 cm. It was consistent with metastatic clear-cell renal cell carcinoma. The margins were uninvolved. Her postoperative course was complicated by worsening anemia, requiring PRBC transfusion. However, at her follow-up visit on 11/04/2020, she was showing clinical improvement and her hemoglobin was adequate at 10.0 g. As of her follow-up visit on 12/17/2020 she was still mildly anemic with hemoglobin 10.9 g. Her serum iron studies were suggestive of iron deficiency, and she was then given further parenteral iron replacement with Injectafer. She had also complained of worsening PA[employer] SU[employer]OR symptoms. She had evaluation with brain MRI on 01/05/2021. It showed moderate progression of microvascular ischemic type changes, but there was no evidence of acute infarct and there was no evidence of metastatic disease. She had restaging CT scans of the chest, abdomen, and pelvis on 01/16/2021. There was no evidence for progression of her pulmonary metastatic disease, but there were new attenuation lesions in the liver which were felt to be highly suspicious for metastatic lesions, the largest measuring 4.5 x 4.1 cm. Also noted was new additional soft tissue thickening along the anterior abdominal wall at the level of the umbilicus and in the peritoneal cavity along the omentum with extension to the adjacent small bowel loops. The appearance was thought to be highly suspicious for metastatic disease. She is seen for a follow-up visit. She thinks she may be feeling a little better, but she still has very limited activity. She thinks she may have some depression. Her pain is being managed adequately taking hydrocodone/APAP twice daily. Medications: AmLODIPine Besylate 1 (5 mg) Tablet Oral daily, Docusate Sodium 1 Tablet (of 100 mg) Oral daily, Hydrocodone-Acetaminophen 1 Tablet (of 5-325 mg) Oral four times a day, Insulin Glargine 5 Units (of 100 Units/mL) Subcutaneous daily, Losartan Potassium 1 Tablet (of 100 mg) Oral daily, Pantoprazole Sodium 1 Tablet (of 40 mg) Tablet, enteric coated Oral daily, rOPINIRole HCl 1 Tablet (of 0.25 mg) Oral daily PRN, TraZODone HCl 1 (100 mg) Tablet Oral at bedtime PRN, Venlafaxine HCl 1 Tablet (of 150 mg) Oral daily, Voltaren Gel (jelly) Topical Allergies: Gentamicin Vital Signs: Performed on Jan 21, 2021 15:33 Height - 62.00 in Weight - 202 lbs BSA - 1.92 sq.m BMI - 36.95 (HIGH) Temperature - 98.1 F (LOW) Pulse - 96 /min Respiration - 18 /min BP - 147/77 mm(hg) (HIGH) O2 Sat - 95 % (LOW) Pain - 5 Lab/Imaging: CBC shows hemoglobin 12.4 g, white blood cell count 8200, and platelet count 277,000. Comprehensive metabolic profile shows elevated BUN and creatinine at 36 and 1.8 mg/dL. The bilirubin and liver enzymes are normal. LDH is normal at 164 U/L. Problem List: 1. Clear-cell renal cell carcinoma, stage III (T3a, N0, M0) at initial diagnosis in 2012. She had subsequent progression to stage IV (M1) with development of pulmonary metastases. 2. She has multi nodular goiter. This includes two dominant nodules on the left side, the largest in the left inferior lobe measuring 2.[address] and 2.5 cm by ultrasound. It has appeared stable on the most recent studies, and a previous FNA done prior to the nephrectomy was benign. 3. She has had persistent anemia. At least some component is almost certainly due to the renal cell carcinoma. 4. Hypertension. 5. Type II diabetes. 6. Chronic kidney disease. 7. GERD. 8. Anxiety/depression. Problems Addressed with this Encounter and Plan: Patient with clear cell renal cell carcinoma. Her disease was locally advanced at initial diagnosis. She underwent right open nephrectomy with renal vein thrombectomy on 06/27/2013. Pathology showed grade 4 clear cell carcinoma. The primary tumor measured 12.7 x 11.0 x 9.5 cm. 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 The renal vein margin was reported to be positive. Dr. Sheppard had indicated in his followup note that he felt it was highly unlikely that she had residual gross tumor, though pathology did report a positive renal vein margin. Her disease at that point appeared to be stage III (T3a, N0, M0). In January 2014 she underwent wedge resection of 3 pulmonary nodules. Two of these were metastatic renal cell cancer, one high-grade and one well differentiated. The other was a very small carcinoid tumor. Based on that, she had pathologically confirmed stage IV disease. She was without evidence of disease following the surgery and she was followed expectantly. In February a surveillance CT scan showed a new pulmonary nodule near the left apex, consistent with metastasis. PET/CT showed low-grade FDG avidity in the nodule, but no other areas of abnormal uptake, consistent with a single site of metastatic involvement. She was then treated with SBRT which she completed in March 2015 to a total dose of [address] scans in March 2017 showed an enlarging pulmonary nodule in the lingula, suspicious for metastasis. She was referred to Dr. Osman. She underwent SBRT to the lingula lesion, completed on 05/06/2017 to a total dose of 4800 cGy. During follow-up there had been no further progression of pulmonary metastatic disease, but she had progressively worsening anemia and she ultimately was found on CT scan to have a persistent area of small bowel intussusception. A restaging PET/CT on 07/12/2020 showed relatively intense FDG activity in the central small bowel at the site of the intussusception. There were no other areas of abnormal uptake. On 10/07/2020 she underwent mini laparotomy with findings of intussusception associated with a jejunal mass. Partial small bowel resection and [id number] small bowel anastomosis. Pathology showed metastatic clear-cell renal cell carcinoma, completely resected. At her followup visit on 11/02/2020 she was showing clinical improvement, but she was still anemic and she also reported worsening PA[employer] symptoms. Her laboratory studies were suggestive of iron deficiency, and she was given further parenteral iron replacement with Injectafer in December 2020. Her brain MRI on 01/05/2021 showed moderate progression of microvascular ischemic type changes, but there was no evidence of acute infarct, and there was no evidence of metastatic disease. At this point she continues to have significant fatigue and her performance status remains somewhat marginal. She does appear to have had a good response to the parenteral iron, with her hemoglobin now up to 12.[address] scans showed no evidence of progression of her pulmonary metastatic disease, but there are findings of new metastatic lesions in the liver and suspected metastatic disease in the anterior abdominal wall. The CT findings and the CT images were reviewed with the patient, and I discussed the clinic complications. She now has evidence of further disease progression with development of new metastatic lesions in the liver as well as suspected metastatic lesions in the lower abdominal wall. She is advised that this is still potentially treatable, as she has had no prior exposure to systemic therapy, for which several options are available. These include monotherapy with a tyrosine kinase inhibitor, immunotherapy with a checkpoint inhibitor as monotherapy, combined immunotherapy with a checkpoint inhibitor and a CTLA-4 inhibitor, or a tyrosine kinase inhibitor in combination with checkpoint inhibitor. I reviewed anticipated side effects with TKI therapy and with the immunotherapy options. Given her underlying medical illnesses and somewhat marginal performance status, my inclination would be to recommend immunotherapy with a checkpoint inhibitor, either as monotherapy or possibly in combination with a TKI. Her further management, though, is also complicated by the fact that her has been almost completely incapacitated following a stroke, and he is receiving care in the group home. She has been having to function independently. She has no family support in the area, and she indicates that she may want to try moved to [place] to be close to her daughter. However, she would also have to move her , and that would be very problematic. At least for now she is just wanting to consider her options. In the meantime, I will review the CT images with the radiologist, and I also will plan to have further evaluation with PET/CT to verify the CT findings and to more accurately assess the extent of her disease. Signed By: Diogenes Ruiz M.D. <<Signature on File>>
== END 2021-01-21 06:29 | disposition home or self-care (01) ==
LOC: ONCMED 06:30
PROVIDERS: Visit Provider Internal Medicine Medical Oncology
DX: C64.1 Malignant neoplasm of right kidney, except renal pelvis (principal); C78.01 Secondary malignant neoplasm of right lung; C78.02 Secondary malignant neoplasm of left lung; E04.2 Nontoxic multinodular goiter; D64.9 Anemia, unspecified; I10 Essential (primary) hypertension; E11.22 Type 2 diabetes mellitus with diabetic chronic kidney disease; N18.9 Chronic kidney disease, unspecified; K21.9 Gastro-esophageal reflux disease without esophagitis; F41.9 Anxiety disorder, unspecified; F32.9 Major depressive disorder, single episode, unspecified; Z79.899 Other long term (current) drug therapy
CPT/HCPCS: 99215

== ENCOUNTER 2021-02-04 09:26 | Outpatient (CLI) | payer MEDICARE, OTHER, SELFPAY ==
--- NOTE | 2021-02-06 13:14 | ONC FU_ITS ---
Dr. Ruiz Patient Follow-Up Note Patient: Angelika Sanchez Unit #: [id number]: 1945 Dicatated By: Diogenes Ruiz M.D.Date of Visit:Feb 04, 2021 Onc Med Follow-up/Prog Note Chief Complaint: Anemia/renal cell cancer. History of Present Illness: This is a 76 year-old woman wtih metastatic renal cell cancer. She also has mild to moderately severe anemia. I had initially seen in November 2012 with persistent anemia following an episode of tularemia the preceding fall. She had been in good health until March of 2012 when she came down with a high fever. The illness was associated with a sore in the area of the left axilla. She ultimately was determined to have and was treated for tularemia. She did show some gradual improvement with treatment, but she never actually got better, and her laboratory studies showed persistent anemia and elevated sed rate. She failed to improve with parenteral iron replacement and with retreatment of the tularemia. Abdominal CT scan in May 2013 showed a large right renal mass consistent with renal cell carcinoma. There was suspected invasion of the right renal vein. A small right upper lobe pulmonary nodule was indeterminate. She also was noted to have a 2.3 x 1.6 cm nodule in the left lobe of the thyroid. There was no other obvious metastatic disease. She underwent right nephrectomy on 06/27/2013. Pathology showed grade 4 clear cell carcinoma. The tumor measured 12.7 x 11.0 x 9.5 cm. There was gross extension into the renal vein, and the renal vein margin was noted to be positive. All other surgical margins were negative. One hilar lymph node was negative. Pathologic staging was pT3a, pN0. Prior to the nephrectomy she had seen an bulk plant manager, and biopsy of the thyroid nodule reportedly was benign. She was followed expectantly. A repeat CT scan in August 2013 showed no significant change in the right upper lobe pulmonary nodule. A right middle lobe nodule also was reported on that study. It measured only 2 to 3 mm, and it was noted to be unchanged. However, repeat CT scans in November 2013 did show a significant increase in the right upper lobe nodule. The small right middle lobe nodule and another small nodule in the right lower lobe appeared stable or perhaps slightly increased. At that point she was referred to Dr. Coates. On 01/14/2014 she underwent right thoracotomy with wedge resection of all 3 pulmonary nodules. Pathology on the right upper lobe nodule showed a high-grade metastatic renal cell carcinoma measuring 1.4 x 1.3 cm. The right middle lobe nodule was a well differentiated neuroendocrine tumor (carcinoid tumor) measuring 4 x 3 mm. The right lower lobe nodule was a more well differentiated metastatic renal cell carcinoma. During recovery she had some issues with blood pressure control and with lower extremity edema, but she otherwise recovered uneventfully. On a scheduled surveillance CT scan in February 2015, she was found to have a new 7.4 mm irregular nodule at the apex of the left lung. It was felt to be suspicious for a primary tumor or metastatic disease. There were no other suspicious findings at that time. Further evaluation with PET/CT showed low-grade FDG uptake in the nodule with SUV 1.5. It was felt to be consistent with metastatic disease. There were no other areas of abnormal uptake on that study. As the findings were felt to be consistent with a single site of additional metastatic involvement, she was referred to Dr. Osman for SBRT. She completed treatment on 03/31/2015 to a total dose of 4800 cGy, delivered in 4 fractions of 1200 cGy. Follow-up PET/CT on 06/28/2015 showed a residual FDG negative nodule measuring 3 mm consistent with positive response to therapy. There was no evidence of any new metastatic disease on that study. Surveillance chest CT on 12/30/2016 showed postsurgical changes in the right thorax with no evidence of recurrence on the right. There was a new 5 mm nodule noted in the lingula, indeterminate for an early metastatic site. Her follow-up CT scans of the chest, abdomen, and pelvis on 04/12/2017 showed increase in the size of the nodule in the lingula to 6.8 mm compared to 4.4 mm in December. There was stable scarring in the left upper lobe. There were no new pulmonary parenchymal nodules. A 2 cm left thyroid lobe nodule appeared stable. There was no evidence of recurrence or metastatic involvement in the abdomen/pelvis. She was referred to Dr. Osman, and she underwent SBRT to the lesion in the lingula, completed on 05/06/2017 to a total dose of 4800 cGy. She tolerated it well. She was then continued expectant management. She had ongoing complaints of fatigue and she continued to have fairly marginal performance status. As of her follow-up visit in August 2018 there has been no evidence of disease progression on her surveillance CT scans. A restaging PET/CT on 12/23/2018 showed a 1.2 x 1.7 cm left upper lobe nodule without significant FDG activity. The appearance was consistent with scarring. Right upper lobe scarring was also FDG negative. There were no areas of abnormal uptake on that study. At that point she had become mildly anemic again. Her B12 level was normal. Her serum iron studies from 03/21/2019 showed low transferrin saturation at 18.3%, suggesting possible iron deficiency. During subsequent follow-up, her anemia continued to gradually worsen despite parenteral iron replacement, and she also was noted to have a significantly elevated sed rate. The findings were suspicious for recurrence of the renal cell cancer. As of April [address] scans showed no evidence of new or progressed metastatic disease, but there was evidence of transient intussusception of the small bowel in the left abdomen. Restaging PET/CT on 07/12/2020 showed unchanged, FDG negative left apical pulmonary nodule. Right upper lobe scarring also was FDG negative and appeared stable. There was relatively intense FDG activity in the central small bowel with CT evidence for intussusception. There were no other areas of abnormal uptake. With those findings she was referred to Dr. Cagle. She had further evaluation with upper GI and small bowel x-ray on 08/29/2020. On 10/07/2020 she underwent diagnostic laparoscopy followed by mini laparotomy with partial small bowel resection and [id number] small bowel anastomosis. She was found to have a mass occupying the proximal jejunal loop estimated at 15 cm in length and 5 cm in diameter. After relief of the intussusception, the mass was located about 40 cm from the ligament of Treitz. It was completely resected. Pathology showed a small bowel fragment containing a fungating mass measuring 6 x 6.5 x 5.9 cm. It was consistent with metastatic clear-cell renal cell carcinoma. The margins were uninvolved. Her postoperative course was complicated by worsening anemia, requiring PRBC transfusion. However, at her follow-up visit on 11/04/2020, she was showing clinical improvement and her hemoglobin was adequate at 10.0 g. As of her follow-up visit on 12/17/2020 she was still mildly anemic with hemoglobin 10.9 g. Her serum iron studies were suggestive of iron deficiency, and she was then given further parenteral iron replacement with Injectafer. She had also complained of worsening MEDICAL SECRETARY RECEPTIONIST symptoms. She had evaluation with brain MRI on 01/05/2021. It showed moderate progression of microvascular ischemic type changes, but there was no evidence of acute infarct and there was no evidence of metastatic disease. She had restaging CT scans of the chest, abdomen, and pelvis on 01/16/2021. There was no evidence for progression of her pulmonary metastatic disease, but there were new attenuation lesions in the liver which were felt to be highly suspicious for metastatic lesions, the largest measuring 4.5 x 4.1 cm. Also noted was new additional soft tissue thickening along the anterior abdominal wall at the level of the umbilicus and in the peritoneal cavity along the omentum with extension to the adjacent small bowel loops. The appearance was thought to be highly suspicious for metastatic disease. She had further evaluation with PET/CT on 01/24/2021. It showed 2 large hepatic lesions consistent with metastatic disease, with the lesion in segment 4a measuring 4.7 x 5.9 cm with SUV 8.4. A second lesion in segment 4b measured 4.2 x 3.3 cm with SUV 7.0. A third smaller lesion in hepatic segment 5 adjacent to the gallbladder also appeared suspicious. There were otherwise postsurgical changes which appeared stable on the June 2020 study. A left upper lobe pulmonary nodule remained FDG negative, consistent with a benign finding. She returns now with her daughter to discuss further management of her renal cell cancer. Medications: AmLODIPine Besylate 1 (5 mg) Tablet Oral daily, Docusate Sodium 1 Tablet (of 100 mg) Oral daily, Hydrocodone-Acetaminophen 1 Tablet (of 5-325 mg) Oral four times a day, Insulin Glargine 5 Units (of 100 Units/mL) Subcutaneous daily, Losartan Potassium 1 Tablet (of 100 mg) Oral daily, Pantoprazole Sodium 1 Tablet (of 40 mg) Tablet, enteric coated Oral daily, rOPINIRole HCl 1 Tablet (of 0.25 mg) Oral daily PRN, TraZODone HCl 1 (100 mg) Tablet Oral at bedtime PRN, Venlafaxine HCl 1 Tablet (of 150 mg) Oral daily, Voltaren Gel (jelly) Topical Allergies: Gentamicin Vital Signs: Performed on Feb 04, 2021 09:41 Height - 62.00 in Weight - 201.6 lbs (LOW) BSA - 1.92 sq.m BMI - 36.87 (HIGH) Temperature - 99.1 F (HIGH) Pulse - 84 /min Respiration - 18 /min BP - 153/74 mm(hg) (HIGH) O2 Sat - 97 % Pain - 0 Fatigue - 8 Lab/Imaging: Test performed on Jan 20, 2021 15:50 Iron 52 mcg/dL LDH (Total) 164 U/L Sodium 136 mmol/L Iron Binding Capacity (TIBC) 231 mcg/dl Potassium 5.3 mmol/L % Iron Saturation 22.5 % Chloride 101 mmol/L CO2 24 mmol/L UIBC 179 mcg/dL Anion Gap 16.3 BUN 36 mg/dL Creatinine 1.8 mg/dL Cr Clearance (Est) 39.6600 mL/min Glucose 113 mg/dL Osmolality - Calculated 291 mOsm/kg Calcium 8.9 mg/dL Protein, Total 7.1 g/dL Albumin 3.8 g/dL Globulin 3.3 g/dL Bilirubin, Total 0.2 mg/dL ALT (SGPT) 7 U/L AST (SGOT) 12 U/L Alkaline Phosphatase 100 IU/L ESR (Sed Rate) 50 mm/hr WBC 8.2 10 3/uL RBC 4.47 10 6/uL HGB 12.4 g/dL HCT 39.7 % MCV 88.8 fL MCH 27.7 pg MCHC 31.2 g/dL RDW 18.2 % Platelet Count 277 10 3/cmm MPV 10.8 fL Neutrophils 6.14 10 3/uL Lymphocytes 1.0 10 3/uL Monocytes 0.7 10 3/uL Eosinophils 0.3 10 3/uL Basophils 0.0 10 3/uL Neutrophil % 75.2 % Lymphocyte % 12.6 % Monocyte % 8.0 % Eosinophil % 3.6 % Basophils % 0.5 % NRBC % 0 % Problem List: 1. Clear-cell renal cell carcinoma, stage III (T3a, N0, M0) at initial diagnosis in 2012. She had subsequent progression to stage IV (M1) with development of pulmonary metastases. 2. She has multi nodular goiter. This includes two dominant nodules on the left side, the largest in the left inferior lobe measuring 2.[address] and 2.5 cm by ultrasound. It has appeared stable on the most recent studies, and a previous FNA done prior to the nephrectomy was benign. 3. She has had persistent anemia. At least some component is almost certainly due to the renal cell carcinoma. 4. Hypertension. 5. Type II diabetes. 6. Chronic kidney disease. 7. GERD. 8. Anxiety/depression. Problems Addressed with this Encounter and Plan: Patient with clear cell renal cell carcinoma. Her disease was locally advanced at initial diagnosis. She underwent right open nephrectomy with renal vein thrombectomy on 06/27/2013. Pathology showed grade 4 clear cell carcinoma. The primary tumor measured 12.7 x 11.0 x 9.5 cm. 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 The renal vein margin was reported to be positive. Dr. Sheppard had indicated in his followup note that he felt it was highly unlikely that she had residual gross tumor, though pathology did report a positive renal vein margin. Her disease at that point appeared to be stage III (T3a, N0, M0). In January 2014 she underwent wedge resection of 3 pulmonary nodules. Two of these were metastatic renal cell cancer, one high-grade and one well differentiated. The other was a very small carcinoid tumor. Based on that, she had pathologically confirmed stage IV disease. She was without evidence of disease following the surgery and she was followed expectantly. In February a surveillance CT scan showed a new pulmonary nodule near the left apex, consistent with metastasis. PET/CT showed low-grade FDG avidity in the nodule, but no other areas of abnormal uptake, consistent with a single site of metastatic involvement. She was then treated with SBRT which she completed in March 2015 to a total dose of [address] scans in March 2017 showed an enlarging pulmonary nodule in the lingula, suspicious for metastasis. She was referred to Dr. Osman. She underwent SBRT to the lingula lesion, completed on 05/06/2017 to a total dose of 4800 cGy. During follow-up there had been no further progression of pulmonary metastatic disease, but she had progressively worsening anemia and she ultimately was found on CT scan to have a persistent area of small bowel intussusception. A restaging PET/CT on 07/12/2020 showed relatively intense FDG activity in the central small bowel at the site of the intussusception. There were no other areas of abnormal uptake. On 10/07/2020 she underwent mini laparotomy with findings of intussusception associated with a jejunal mass. Partial small bowel resection and [id number]-[id number]-[id number] small bowel anastomosis. Pathology showed metastatic clear-cell renal cell carcinoma, completely resected. At her followup visit on 11/02/2020 she was showing clinical improvement, but she was still anemic and she also reported worsening MEDICAL SECRETARY RECEPTIONIST symptoms. Her laboratory studies were suggestive of iron deficiency, and she was given further parenteral iron replacement with Injectafer in December 2020. Her brain MRI on 01/05/2021 showed moderate progression of microvascular ischemic type changes, but there was no evidence of acute infarct, and there was no evidence of metastatic disease. Her restaging CT scans on 01/16/2021 showed no evidence of progression of her pulmonary metastatic disease, but there were findings of new metastatic lesions in the liver and suspected metastatic disease in the anterior abdominal wall. Restaging PET/CT on 01/24/2021 confirmed presence of 2 relatively large FDG avid metastatic lesions in the left hepatic lobe (segments IBVa and b) and a suspected third smaller in the right hepatic lobe (segment V). The other abdominal findings were felt to be more likely due to postoperative changes. She has seen now to discuss recommendations for further management. She has evidence of disease progression with 2 and possibly 3 sites of new metastatic disease within the liver. The other areas of suspected involvement on the diagnostic CT did not show significant FDG avidity by PET, so her disease may still be localized to the liver, and at some point she may be eligible for liver directed therapy. However, at this point I think she should first begin systemic therapy. I had previously discussed those options with her, and she is here today to review those options with her daughter present. Her social situation is complicated by the fact that her had a major stroke and he remains completely incapacitated and confined to the detention. She has no other family support in this area. She would prefer to move to [place] to be with her daughter, but relocating is problematic because she would have to take her with her. In any case I reviewed the treatment options which would potentially include TKI monotherapy, immunotherapy with a PD-L1 inhibitor, combined immunotherapy with a PD-L1 inhibitor and a CTLA-4 inhibitor, or combined therapy with a TKI and a PD-L1 inhibitor. I reviewed anticipated side effects. Given her marginal performance status, the combined immunotherapy is not a good option. Among the other options I would favor the combined TKI/PD-L1 inhibitor regimen, as we should be able to manage toxicities with dose adjustments and response rates with that treatment would be considerably better. As such, I will begin the process of getting approval for treatment with pembrolizumab 200 mg IV every 3 weeks together with lenvatinib 20 mg daily. In the meantime, we are checking into the possible option of getting her transported to [place] via a [employer] flight. Signed By: Diogenes Ruiz M.D. <<Signature on File>>
== END 2021-02-04 09:27 | disposition home or self-care (01) ==
LOC: ONCMED 09:30
PROVIDERS: Visit Provider Internal Medicine Medical Oncology
DX: C64.9 Malignant neoplasm of unspecified kidney, except renal pelvis (principal); C78.00 Secondary malignant neoplasm of unspecified lung; D64.9 Anemia, unspecified; E11.9 Type 2 diabetes mellitus without complications; I12.9 Hypertensive chronic kidney disease with stage 1 through stage 4 chronic kidney disease, or unspecified chronic kidney disease; N18.9 Chronic kidney disease, unspecified; K21.9 Gastro-esophageal reflux disease without esophagitis; F41.9 Anxiety disorder, unspecified; F32.9 Major depressive disorder, single episode, unspecified
CPT/HCPCS: 99215